=== PATIENT | female | born 1970 | race Caucasian/White ===

== ENCOUNTER 2021-05-19 12:06 | Outpatient (REF) | payer OTHER, SELFPAY ==
--- NOTE | ~2021-05-19 | XR_ITS ---
EXAMINATION: XR CHEST CLINICAL INFORMATION: Pneumonia. COMPARISON: Chest radiograph dated 01/02/2018. TECHNIQUE: 2 views of the chest were obtained. FINDINGS: The lungs are clear. The cardiomediastinal silhouette is normal in size. There is no pleural effusion or pneumothorax. No acute osseous abnormality. Right upper quadrant surgical clips. XR/XR chest 2V IMPRESSION: No acute cardiopulmonary findings.
== END 2021-05-19 12:07 | disposition home or self-care (01) ==
LOC: HO.XRAY 12:06
PROVIDERS: PCP Internal Medicine; Visit Provider Internal Medicine
DX: J18.9 Pneumonia, unspecified organism (principal)
CPT/HCPCS: 71046

== ENCOUNTER 2021-11-18 07:24 | Outpatient (REF) | payer OTHER, SELFPAY ==
--- NOTE | ~2021-11-18 | MM_ITS ---
EXAMINATION: MM SCREENING DIGITAL BREAST TOMOSYNTHESIS, BILATERAL CLINICAL INFORMATION: Screening. Asymptomatic. The lifetime risk of breast cancer based on the Tyrer-Cuzick Model is 9%. COMPARISON: Mammography: 07/29/2015 (baseline) TECHNIQUE: Digital breast tomosynthesis is performed in both the craniocaudal and mediolateral oblique views along with computer-aided detection (CAD). Synthesized 2D images are generated from the tomosynthesis. Additional left CC view is provided. FINDINGS: The breasts are heterogeneously dense, which may obscure small masses (ACR BI-RADS breast composition Category c). There are no significant masses, abnormal calcifications, or other abnormalities. Breast tissue composition borders on average fibroglandular. Parenchymal pattern is similar to prior studies. There are no significant changes. MM/MM tomosynthesis screening BI IMPRESSION: No mammographic evidence of malignancy. ASSESSMENT: BI-RADS 1: Negative RECOMMENDATION: Routine annual mammography screening. This patient's information was entered into a reminder system with a target due date for their next mammogram.
== END 2021-11-18 07:25 | disposition home or self-care (01) ==
LOC: HO.MAMMO 07:24
PROVIDERS: PCP Internal Medicine; Visit Provider Internal Medicine
DX: Z12.31 Encounter for screening mammogram for malignant neoplasm of breast (principal)
CPT/HCPCS: 77063; 77067

== ENCOUNTER 2023-01-19 11:43 | Outpatient (REF) | payer OTHER, SELFPAY ==
[2023-01-19 13:39] LABS: MANUAL DIFF FLAG NO
[2023-01-19 13:49] LABS: Basophils Absolute Auto 0.1 X10*3/uL (0.0-0.2); Basophils Percent Auto 1.2 % (0-2); Eosinophils Absolute Auto 0.1 X10*3/uL (0.0-0.4); Eosinophils Percent Auto 1.8 % (0-4); Hematocrit 40.7 % (37.0-47.0); Hemoglobin 13.7 g/dl (12.0-16.0); Imm Gran Abs Auto 0.02 X10*3/uL (0.00-0.03); Imm Gran Pct Auto 0.4 % (0.0-0.4); Lymphocytes Absolute Auto 1.6 X10*3/uL (1.2-4.9); Lymphocytes Percent Auto 28.1 % (20-40); Mean Corpuscular HGB Conc 33.7 g/dl (31.0-35.0); Mean Corpuscular Hemoglobin 29.7 pg (27.0-33.0); Mean Corpuscular Volume 88.1 fL (80.0-98.0); Mean Platelet Volume 10.6 fL (9.4-12.3); Monocytes Absolute Auto 0.4 X10*3/uL (0.1-1.2); Monocytes Percent Auto 7.1 % (2-11); Neutrophils Absolute Auto 3.5 x10*3/uL (2.0-8.3); Neutrophils Percent Auto 61.4 % (45-73); Platelet Count 280 X10*3/uL (160-400); Red Blood Count 4.62 X10*6/uL (4.20-5.50); Red Cell Distribution Width 12.3 % (11.0-16.0); White Blood Count 5.6 X10*3/uL (4.8-10.8)
[2023-01-19 14:10] LABS: Alanine Aminotransferase 14 U/L (0-31); Albumin Level 4.6 g/dL (3.5-5.0); Alkaline Phosphatase 76 U/L (39-117); Anion Gap 15 (12-20); Aspartate Amino Transferase 15 U/L (5-31); Bilirubin Total 0.6 mg/dL (0.0-1.0); Blood Urea Nitrogen 11 mg/dL (9-16); Calcium 9.6 mg/dL (8.4-10.2); Carbon Dioxide 26 mmol/L (22-29); Chloride 102 mmol/L (96-108); Estimated Glomerular Filt Rate > 60; Glucose Random 84 mg/dL (60-115); Potassium 5.1 mmol/L (3.3-5.1); Sodium 138 mmol/L (135-145); Total Protein 7.1 g/dL (6.5-8.0)
[2023-01-21 15:14] LABS: TS Negative Control Passed; TS Panel A 1; TS Panel B 0; TS Positive Control Passed; TSpotTB Negative (Negative)
== END 2023-01-19 11:44 | disposition home or self-care (01) ==
LOC: HO.10HDL 11:43
PROVIDERS: Visit Provider Physician Assistant Medical
DX: Z11.1 Encounter for screening for respiratory tuberculosis (principal); L40.0 Psoriasis vulgaris
CPT/HCPCS: 36415; 80053; 85025; 86481

== ENCOUNTER 2023-06-28 14:16 | Outpatient (AMB) | payer OTHER, SELFPAY ==
--- NOTE | 2023-06-28 14:18 | MHC.OFFVIS ---
Intake Vital Signs 06/28/23 14:21 Height 5 ft 5 in Weight 211 lb 10.3 oz BMI 35.2 BP 136/78 Blood Pressure Location Lt brachial Position Sitting Pulse 72 Intake Visit Reasons: screening colonoscopy Intake Note: Ree presents in the office as a colonoscopy screening. CC: She states that she is due for a colonoscopy but she is not having a BM regular. Allergies No Known Allergies Allergy (Unverified 06/28/23 14:21) HPI screening colonoscopy HPI Details 53 year old? female with past medical history of hyperlipidemia, insomnia, asthma, psoriasis, PCOS is here today for pre colonoscopy screening.? Patient was sent to us by her PCP.? Last colonoscopy was in December of 2011. Patient had no polyps.? Patient reports constipation. Patient is taking [id number] milk of magnesium tablets. Patient reports that she has been dealing with this for a long time. Occasional blood when wiping after bowel movement. Patient was diagnosed in the past with hemorrhoids.? Denies any personal or family history of gastrointestinal disease or colorectal cancer.? Denies history of difficulty with sedation or anesthesia in the past.? Negative for history of sleep apnea.? Denies any history of cardiac, renal, pulmonary, or hepatic disease.?? No history of infectious? diseases like hepatitis A, B, C, HIV or tuberculosis.? Patient is not on any anticoagulation therapy. [facility] Surgical History (Updated 06/28/23 @ 14:22 by DUSTIN Vaughan) Hx of colonoscopy History of esophagogastroduodenoscopy (EGD) Review of Systems Const Denies weight gain and Denies weight loss ENT Reports no additional complaints, Denies dysphagia and Denies odynophagia Card Reports no additional complaints Resp Reports no additional complaints GI Denies abdominal pain, Denies belching, Denies melena, Denies bloating, Reports hematochezia (After bowel movement when wiping, occasional), Denies change in bowel habits, Reports constipation, Denies dysphagia, Denies excessive flatus, Denies dyspepsia, Denies heartburn, Denies diarrhea, Denies loose stools, Denies nausea, Denies odynophagia and Denies vomiting Reports no additional complaints Musc Reports no additional complaints Neuro Reports no additional complaints Psych Reports no additional complaints Endo Reports no additional complaints Physical Exam Vital Signs: Last Vital Signs Pulse 72 06/28/23 14:21 BP 136/78 06/28/23 14:21 BMI result Body Mass Index 35.2 Const General: healthy appearing, no acute distress and well developed Orientation/consciousness: patient oriented x3 HEENT Head: Yes normal to inspection, Yes normocephalic and Yes atraumatic Face and sinus: Yes normal facial exam Mouth: Normal oral and palatal mucosa present Throat: Yes posterior oropharynx normal, Yes tonsils normal and Yes uvula midline Eyes General: appearance normal, both eyes and all related structures Neck Neck: Yes normal visual inspection, Yes full ROM and Yes trachea midline Thyroid: Thyroid normal Resp Effort & Inspection: normal respiratory effort, able to speak in complete sentences, no tracheal deviation and symmetric chest movement Auscultation: clear to auscultation bilaterally Cardio Rate: regular rate Heart sounds: S1 normal heart sound present and S2 normal heart sound present GI Inspection: Yes normal to inspection, No distended and Yes obesity Palpation (GI): Soft to palpation, not firm, nontender and No hepatosplenomegaly present Auscultation: normal bowel sounds General: Yes no CVA tenderness Back/Spine/Pelvis Back: no CVA tenderness Skin General skin exam: elasticity normal, turgor normal and dry skin Neuro General: patient oriented x3 Psych Appearance: grossly normal Mental Status: mental status grossly normal Assessment & Plan Assessment & Plan (1) Screen for colon cancer: Code(s): Z12.11 - Encounter for screening for malignant neoplasm of colon (2) Chronic idiopathic constipation: Code(s): K59.04 - Chronic idiopathic constipation (3) Hemorrhoid: Code(s): K64.9 - Unspecified hemorrhoids Qualifiers: Hemorrhoid type: unspecified Qualified Code(s): K64.9 - Unspecified hemorrhoids Plan Patient denies any cardiac or respiratory symptoms. Patient reports to be constipated. Will start patient on Linzess. Patient will call the office if her symptoms will continue.? Patient reports occasional blood when wiping after bowel movement. Will send patient script for Proctosol. Denies any issues with anesthesia in the past.? Denies any history of sleep apnea.? No history infectious diseases in the past or present.? Not on any anticoagulation therapy.? No family or personal history of colorectal cancer.? Patient denies melena, hematochezia (except for occasional blood after bowel movement when wiping), unintentional weight loss or ribbon like stools.? Discussed at length the pre-procedure,? prep, diet & medications as well as what to expect prior, during and after the procedure.?? Stressed the importance of good bowel prep. ?Recommended the use of Vaseline or Calmoseptine OTC & baby wipes with bowel movements to promote comfort.? ?Patient verbalizes understanding and agrees to plan of care.? She was given the opportunity to ask questions and all questions answered.? We will see her after the procedure.? Medications: New linaclotide (Linzess) 145 mcg PO DAILY 30 caps 2RF hydrocortisone 2.5% (Proctosol HC) 1 appl RI BID-QID PRN 30 grams 2RF hemorrhoids K64.9 - Unspecified hemorrhoids Coding Level of Care Code New Pt Level 4 (27322) Diagnoses Screen for colon cancer Z12.11 Chronic idiopathic constipation K59.04 Hemorrhoids, unspecified hemorrhoid type K64.9 Hemorrhoid type: unspecified Time Spent (min) 45 Comment 30 minutes spent with patient and additional 15 minutes spent reviewing her records.
[2023-06-28 14:21] VITALS: BP 136/78; PULSE 72; BMI 35.2
== END 2023-06-28 15:19 | disposition home or self-care (01) ==
PROVIDERS: PCP Internal Medicine; Visit Provider Nurse Practitioner Family
DX: Z01.818 Encounter for other preprocedural examination (principal); Z12.11 Encounter for screening for malignant neoplasm of colon; K59.04 Chronic idiopathic constipation; K64.9 Unspecified hemorrhoids
CPT/HCPCS: S0285

== ENCOUNTER → 2023-06-28 14:16 | Outpatient (BNVA) | payer OTHER, SELFPAY | PROVIDERS: PCP Internal Medicine; Visit Provider Nurse Practitioner Family ==

== ENCOUNTER 2024-05-29 09:48 | Day surgery (SDC) | payer OTHER, SELFPAY ==
[2024-05-29 09:58] VITALS: BP 112/82; PULSE 102; RESP 20; TEMP 36.9; O2SAT 96; BMI 35.1
[2024-05-29] MEDS: Lactated Ringers 1,000 ML 100 ML IVCONT (10:27)
--- NOTE | 2024-05-29 11:05 | P.CONAN_ITS ---
Documented by User: Inocencia Beckwith NP 05/25/24 14:49 HPI - Anesthesia Eval Consult details Narrative: 54yo F for Colonoscopy [facility] Past Medical History Medical History (Updated 05/29/24 @ 10:20 by Maria De Jesus Santiago RN) Psoriasis (a type of skin inflammation) Arthritis H/O psoriatic arthritis High cholesterol delivery delivered Asthma Surgical History Surgical History (Updated 05/29/24 @ 10:17 by Maria De Jesus Santiago RN) Hx of adenoidectomy Hx of tonsillectomy Hx laparoscopic cholecystectomy Hx of hysterectomy Hx of colonoscopy History of esophagogastroduodenoscopy (EGD) Social History Social History Patient Tobacco Use Status: Never used Tobacco Have you been hit, kicked, punched, or otherwise hurt by someone within the past year? If so, by whom?: No Are you DNR?: No Advance Directives: No Advance Directives Information Provided: Yes Nutrition Risks: No Nutritional Risk Meds Allergies Allergy/AdvReac Type Severity Reaction Status Date / Time No Known Allergies Allergy Unverified 06/28/23 14:21 Home Medications ?Medication ?Instructions ?Recorded ?Confirmed ?Last Taken ?Type albuterol sulfate 90 mcg/actuation 2 puff inhalation Q6H PRN 06/28/23 Unknown History aerosol inhaler (Ventolin HFA) docusate sodium 100 mg tablet 100 mg PO DAILY 06/28/23 Unknown History lovastatin 20 mg tablet 20 mg PO DAILY 06/28/23 Unknown History montelukast 10 mg tablet 10 mg PO DAILY 06/28/23 Unknown History risankizumab-rzaa 60 mg/mL 600 mg IV Q4W 06/28/23 Unknown History intravenous solution (Skyrizi) fluticasone fur. 100 mcg-umeclid 1 ea inhalation DAILY 05/29/24 05/29/24 05/29/24 History 62.5 mcg-vilant 25 mcg inhalat.powder (Trelegy Ellipta) Assessment and Plan Assessment Anesthesia Assessment: Chart Reviewed Documented by User: Meghann Tsang DO 05/29/24 11:07 [facility] Past Medical History Medical History (Updated 05/29/24 @ 10:20 by Maria De Jesus Santiago RN) Psoriasis (a type of skin inflammation) Arthritis H/O psoriatic arthritis High cholesterol delivery delivered Asthma Family History Family history of problems with anesthesia: No Surgical History Surgical History (Updated 05/29/24 @ 10:17 by Maria De Jesus Santiago RN) Hx of adenoidectomy Hx of tonsillectomy Hx laparoscopic cholecystectomy Hx of hysterectomy Hx of colonoscopy History of esophagogastroduodenoscopy (EGD) History of Problems with Anesthesia: No Social History Social History Patient Tobacco Use Status: Never used Tobacco Have you been hit, kicked, punched, or otherwise hurt by someone within the past year? If so, by whom?: No Are you DNR?: No Advance Directives: No Advance Directives Information Provided: Yes Nutrition Risks: No Nutritional Risk Meds Allergies Allergy/AdvReac Type Severity Reaction Status Date / Time No Known Allergies Allergy Unverified 06/28/23 14:21 Home Medications ?Medication ?Instructions ?Recorded ?Confirmed ?Last Taken ?Type albuterol sulfate 90 mcg/actuation 2 puff inhalation Q6H PRN 06/28/23 Unknown History aerosol inhaler (Ventolin HFA) docusate sodium 100 mg tablet 100 mg PO DAILY 06/28/23 Unknown History lovastatin 20 mg tablet 20 mg PO DAILY 06/28/23 Unknown History montelukast 10 mg tablet 10 mg PO DAILY 06/28/23 Unknown History risankizumab-rzaa 60 mg/mL 600 mg IV Q4W 06/28/23 Unknown History intravenous solution (Skyrizi) fluticasone fur. 100 mcg-umeclid 1 ea inhalation DAILY 05/29/24 05/29/24 05/29/24 History 62.5 mcg-vilant 25 mcg inhalat.powder (Trelegy Ellipta) Exam Exam Date and Time: 05/29/24 1105 Height,Weight and Vital Signs: Height 5 ft 5 in Weight 95.617 kg Vital Signs Temperature 98.5 F 05/29/24 09:58 Pulse Rate 102 H 05/29/24 09:58 Respiratory Rate 20 05/29/24 09:58 Blood Pressure 112/82 05/29/24 09:58 Pulse Oximetry 96 05/29/24 09:58 Oxygen Delivery Method Room Air 05/29/24 09:58 Temperature 98.5 F 05/29/24 09:58 Pulse Rate 102 H 05/29/24 09:58 Respiratory Rate 20 05/29/24 09:58 Blood Pressure 112/82 05/29/24 09:58 Pulse Oximetry 96 05/29/24 09:58 Oxygen Delivery Method Room Air 05/29/24 09:58 Airway Mallampati Class: II TM Dist: <=3cm Neck ROM: Full Loose/Missing/Broken Teeth: No (permanent bridge) Heart: S1S2 Lungs: CTAB Assessment and Plan Assessment Anesthesia Assessment: Anesthesia Plan Discussed and Chart Reviewed Final Anesthetic Review Family History of Problems with Anesthesia: No History of Problems with Anesthesia: No NPO: Yes ASA Class: II Final Preanesthetic Review: No Changes in Pt Med Stat, Meds/Allgs Chart Reviewed, Consent Obtained/Reviewed and Anes Risks/Benef Reviewed Patient Risk: Low Procedure Risk: Low Anesthetic Plan Anesthetic Plan: MAC: and Agree w/ Assess. and Plan Disposition: Standard PACU
--- NOTE | 2024-05-29 11:06 | MHC.SHP ---
Pre-Procedural Eval Section A - 24 Hr Update-Section A only Date of Service: 05/29/24 Section B - Complete if H&P > 30 days Chief Complaint: screening Relevant Family History (Specify if Yes): No Relevant Social History: None Present Medications: see Short Stay Collaborative assessment Medical History: Significant History ( hyperlipidemia, insomnia, asthma, psoriasis, PCOS) History of Previous Operations: Relevant previous surgery/procedure and date(s) (egd,colonoscopy) Allergies: Allergies Allergy/AdvReac Type Severity Reaction Status Date / Time No Known Allergies Allergy Unverified 06/28/23 14:21 Review of Systems Sugical H&P ROS: Negative: Constitution, Cardiovascular, Respiratory, Neurological, Psychiatric, Hem-Onc, Allergic/Immunologic, Gastrointestinal, Genitourinary, Musculoskeletal, Integumentary, Endocrine and Eyes/Ears/Nose/Throat Exam Surgical H&P Exam: Normal: HEENT, Normal: Heart, Normal: Lungs, Normal: Extremities, Normal: Abdomen, Normal: Skin and Normal: Neurological Plan Diagnosis/Plan: Unchanged I have reviewed the history and physical and performed a pertinent physical examination on my patient. No changes have occurred unless specified. Time Spent With Patient Time: Total time managing care of this patient today ____ minutes.
--- NOTE | 2024-05-29 11:43 | HO.OPN-COLON ---
Colonoscopy Operative Note Operative Note Date of Service: 05/29/24 Narrative: Operative Information Procedure Description: Colonoscopy Indication: screening Anesthesia: MAC COLONOSCOPY Instrument: Olympus variable stiffness pediatric scope 190L Colonoscopy Monitoring: Vital signs and clinical assessment, continuous EKG monitoring, Pulse oximetry, Carbon Dioxide monitoring and blood pressure monitoring were done throughout the procedure. Colon withdrawal time was 9 minutes. Procedure: The patient was placed in the left lateral decubitis position and pre-procedure medications were administered. After a digital rectal examination of the ano-rectum, the video colonoscope was inserted into the rectum and advanced through the colon to the cecum/TI. The colonoscope was slowly withdrawn in a retrograde panoramic fashion and the colon mucosa was carefully examined including a retroflexed view of the rectum. Findings and interventions are described below. Procedure Difficulty: easy Findings: Terminal Ileum-normal Cecum:normal right sided retroflexion- normal Ascending Colon: normal Transverse Colon -normal Descending Colon:normal Sigmoid Colon: normal Rectum: Retroflexion with small internal hemorrhoids seen, grade I, 9-10 mm sessile polyp removed with cold snare Anorectum - normal Intervention: cold snare Colon preparation: [place] Bowel Preparation Scale Right colon; 2 Transverse colon: 3 Left colon; 3 (0 = Unprepared colon segment with mucosa not seen due to solid stool that cannot be cleared. 1 = Portion of mucosa of the colon segment seen, but other areas of the colon segment not well seen due to staining, residual stool and/or opaque liquid. 2 = Minor amount of residual staining, small fragments of stool and/or opaque liquid, but mucosa of colon segment seen well. 3 = Entire mucosa of colon segment seen well with no residual staining, small fragments of stool or opaque liquid) Impression and Post Procedure Diagnosis: colon polyp internal hemorrhoids Plan: High fiber diet leaflet Avoid straining at stool, epsom salts and sitz bath, anusol supps or cream Repeat Colonoscopy in 5-7 years if adenoma, 10 yrs if hyperplastic or earlier if clinically indicated Above findings were reviewed with the patient and relevant handouts were provided if indicated.
[2024-05-29 11:44] VITALS: BP 107/74; PULSE 82; RESP 16; TEMP 36.1; O2SAT 98
[2024-05-29 11:49] VITALS: BP 104/68; PULSE 82; RESP 16; O2SAT 99
[2024-05-29 12:02] VITALS: BP 101/65; PULSE 92; RESP 20; TEMP 36.2; O2SAT 99
== END 2024-05-29 12:18 | disposition home or self-care (01) ==
PROVIDERS: PCP Internal Medicine; Visit Provider Internal Medicine Gastroenterology
PROC: 0DJD8ZZ Inspection of Lower Intestinal Tract, Via Natural or Artificial Opening Endoscopic (ICD-10-PCS; CPT 45378; principal; 2024-05-29 12:50)
DX: Z12.11 Encounter for screening for malignant neoplasm of colon (principal); K62.1 Rectal polyp; K64.0 First degree hemorrhoids; K59.04 Chronic idiopathic constipation; E78.5 Hyperlipidemia, unspecified; J45.909 Unspecified asthma, uncomplicated; L40.9 Psoriasis, unspecified; G47.00 Insomnia, unspecified; E28.2 Polycystic ovarian syndrome; Z79.51 Long term (current) use of inhaled steroids; Z79.899 Other long term (current) drug therapy; Z90.49 Acquired absence of other specified parts of digestive tract; Z98.890 Other specified postprocedural states
CPT/HCPCS: 45385; 88305; J2704

== ENCOUNTER → 2024-05-29 09:48 | Outpatient (BNV) | payer OTHER, SELFPAY | PROVIDERS: PCP Internal Medicine; Visit Provider Internal Medicine Gastroenterology | DX: Z12.11 Encounter for screening for malignant neoplasm of colon (principal); D12.8 Benign neoplasm of rectum; K64.8 Other hemorrhoids | CPT/HCPCS: 45385 ==

== ENCOUNTER 2024-06-12 09:42 | Outpatient (AMB) | payer OTHER, SELFPAY ==
[2024-06-12 09:43] VITALS: BP 140/86; PULSE 72; O2SAT 98; BMI 33.5
--- NOTE | 2024-06-12 09:43 | MHC.OFFVIS ---
Vital Signs 06/12/24 09:43 Height 5 ft 5 in Weight 201 lb 0.985 oz BMI 33.5 BP 140/86 H Blood Pressure Location Lt brachial Position Sitting Pulse 72 Pulse Source Pulse Oximeter Pulse Oximetry (%) 98 Oxygen Delivery Method Room Air Intake Visit Reasons: s/p colon Intake Note: Ree presents in office today for a scheduled s/p FUV. CC; Pt reports that they did not experience any post op complications or develop any new concerns or sx. Pt is here to discuss the findings of their procedure. 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 Patient reports to be constipated. Will start patient on Linzess. Patient will call the office if her symptoms will continue.? Patient reports occasional blood when wiping after bowel movement. Will send patient script for Proctosol. Denies any issues with anesthesia in the past.? Denies any history of sleep apnea.? No history infectious diseases in the past or present.? Not on any anticoagulation therapy.? No family or personal history of colorectal cancer.? Patient denies melena, hematochezia (except for occasional blood after bowel movement when wiping), unintentional weight loss or ribbon like stools.? Discussed at length the pre-procedure,? prep, diet & medications as well as what to expect prior, during and after the procedure.?? Stressed the importance of good bowel prep. ?Recommended the use of Vaseline or Calmoseptine OTC & baby wipes with bowel movements to promote comfort.? ?Patient verbalizes understanding and agrees to plan of care.? She was given the opportunity to ask questions and all questions answered.? We will see her after the procedure.? Medications New linaclotide (Linzess) 145 mcg PO DAILY 30 caps 2RF hydrocortisone 2.5% (Proctosol HC) 1 appl DE BID-QID PRN 30 grams 2RF hemorrhoids K64.9 COLONOSCOPY Findings: Terminal Ileum-normal Cecum:normal right sided retroflexion- normal Ascending Colon: normal Transverse Colon -normal Descending Colon:normal Sigmoid Colon: normal Rectum: Retroflexion with small internal hemorrhoids seen, grade I, 9-10 mm sessile polyp removed with cold snare Anorectum - normal Intervention: cold snare Colon preparation: [place] Bowel Preparation Scale Right colon; 2 Transverse colon: 3 Left colon; 3 (0 = Unprepared colon segment with mucosa not seen due to solid stool that cannot be cleared. 1 = Portion of mucosa of the colon segment seen, but other areas of the colon segment not well seen due to staining, residual stool and/or opaque liquid. 2 = Minor amount of residual staining, small fragments of stool and/or opaque liquid, but mucosa of colon segment seen well. 3 = Entire mucosa of colon segment seen well with no residual staining, small fragments of stool or opaque liquid) Impression and Post Procedure Diagnosis: colon polyp internal hemorrhoids Plan: High fiber diet leaflet Avoid straining at stool, epsom salts and sitz bath, anusol supps or cream Repeat Colonoscopy in 5-7 years if adenoma, 10 yrs if hyperplastic or earlier if clinically indicated PATHOLOGY RESULTS Diagnosis Rectum, polypectomy: Hyperplastic mucosal polyp TODAY'S VISIT Patient is here today for follow-up and to discuss colonoscopy results. Patient denies any ill effects from the prep, anesthesia or procedure itself. Patient reports to doing fairly well. She continues to take Linzess on as-needed basis to help her move her bowels. Patient reports that she had complete hysterectomy in 2018. Patient states that the surgery was long 6 hours. Severe endometriosis. Was told that unable to completely remove endometriosis and some was stuck to her colon. This could be contributing to patient's constipation as well. [facility] Medical History (Updated 06/12/24 @ 10:42 by Mery Joshi [facility] Endometriosis of abdomen Psoriasis (a type of skin inflammation) Arthritis H/O psoriatic arthritis High cholesterol delivery delivered Asthma Surgical History Hx of adenoidectomy Hx of tonsillectomy Hx laparoscopic cholecystectomy Hx of hysterectomy Hx of colonoscopy History of esophagogastroduodenoscopy (EGD) Social History Patient Tobacco Use Status: Never used Tobacco Review of Systems Const Denies weight gain and Denies weight loss ENT Reports no additional complaints, Denies dysphagia and Denies odynophagia Card Reports no additional complaints Resp Reports no additional complaints GI Denies abdominal pain, Denies belching, Denies melena, Denies bloating, Denies change in bowel habits, Reports constipation (Better with Linzess), Denies dysphagia, Denies excessive flatus, Denies dyspepsia, Denies heartburn, Denies diarrhea, Denies loose stools, Denies nausea, Denies odynophagia and Denies vomiting Reports no additional complaints Musc Reports no additional complaints Neuro Reports no additional complaints Psych Reports no additional complaints Endo Reports no additional complaints Physical Exam Vital Signs: Last Vital Signs Pulse 72 06/12/24 09:43 BP 140/86 H 06/12/24 09:43 Pulse Ox 98 06/12/24 09:43 Oxygen Delivery Method Room Air 06/12/24 09:43 BMI result Body Mass Index 33.5 Const General: healthy appearing and no acute distress Nutritional Appearance: obese Orientation/consciousness: patient oriented x3 Resp Effort & Inspection: normal respiratory effort, able to speak in complete sentences, no tracheal deviation and symmetric chest movement Auscultation: clear to auscultation bilaterally Cardio Rate: regular rate GI Inspection: Yes normal to inspection, No distended and Yes obesity Palpation (GI): Soft to palpation, not firm, nontender and No hepatosplenomegaly present Auscultation: normal bowel sounds General: Yes no CVA tenderness Back/Spine/Pelvis Back: no CVA tenderness Skin General skin exam: elasticity normal, turgor normal and dry skin Neuro General: patient oriented x3 Psych Appearance: grossly normal Mental Status: mental status grossly normal Assessment & Plan Assessment & Plan (1) Chronic idiopathic constipation: Code(s): K59.04 - Chronic idiopathic constipation (2) Endometriosis of abdomen: Code(s): N80.C0 - Endometriosis of the abdomen, unspecified Category: Medical (3) Status post colonoscopy: Code(s): Z98.890 - Other specified postprocedural states Plan Patient will continue Linzess on as-needed basis. Increase fluid intake and fiber as well as activity to promote better bowel motility. Will send patient for CT scan of abdomen and pelvis with IV and oral contrast to see the extent of endometriosis and see if it is affecting her bowels. Patient does report right lower quadrant pain possible cecum affected or even sigmoid, pain also on the left side of her abdomen occasionally. Colonoscopy in 10 years, sooner if clinically necessary. Patient will follow-up in 8 months, sooner on as needed basis. Patient is agreeable to this plan and verbalizes understanding of instructions. She was given the opportunity to ask questions and all questions answered. Thank you for allowing me to participate in her care Orders: Orders Creatinine Today R10.11 - Right upper quadrant pain CT abdomen pelvis w IV con Today N80.C0 - Endometriosis of the abdomen, unspecified, R10.9 - Unspecified abdominal pain Blood Urea Nitrogen Today R10.11 - Right upper quadrant pain Medications: Refilled linaclotide (Linzess) 145 mcg PO DAILY 30 caps 2RF Coding Level of Care Code Est Pt Level 3 (35008) Diagnoses Chronic idiopathic constipation K59.04 Endometriosis of abdomen N80.C0 Status post colonoscopy Z98.890 Time Spent (min) 30 Comment 20 minutes spent with patient and additional 10 minutes spent reviewing her records
== END 2024-06-12 10:31 | disposition home or self-care (01) ==
PROVIDERS: PCP Internal Medicine; Visit Provider Nurse Practitioner Family
DX: K59.04 Chronic idiopathic constipation (principal); N80.C0 Endometriosis of the abdomen, unspecified; Z98.890 Other specified postprocedural states
CPT/HCPCS: 99213

== ENCOUNTER → 2024-06-12 09:42 | Outpatient (BNVA) | payer OTHER, SELFPAY | PROVIDERS: PCP Internal Medicine; Visit Provider Nurse Practitioner Family ==

== ENCOUNTER 2025-01-23 06:47 | Outpatient (REF) | payer OTHER, SELFPAY ==
[2025-01-23 07:00] LABS: MANUAL DIFF FLAG NO
[2025-01-23 07:24] LABS: Basophils Absolute Auto 0.1 X10*3/uL (0.0-0.2); Basophils Percent Auto 1.6 % (0-2); Eosinophils Absolute Auto 0.2 X10*3/uL (0.0-0.4); Eosinophils Percent Auto 2.6 % (0-4); Hemoglobin 14.1 g/dl (12.0-16.0); Imm Gran Abs Auto 0.03 X10*3/uL (0.00-0.03); Imm Gran Pct Auto 0.4 % (0.0-0.4); Lymphocytes Absolute Auto 2.2 X10*3/uL (1.2-4.9); Lymphocytes Percent Auto 32.2 % (20-40); Mean Corpuscular HGB Conc 34.4 g/dl (31.0-35.0); Mean Corpuscular Hemoglobin 30.2 pg (27.0-33.0); Mean Corpuscular Volume 87.8 fL (80.0-98.0); Mean Platelet Volume 9.9 fL (9.4-12.3); Monocytes Absolute Auto 0.5 X10*3/uL (0.1-1.2); Monocytes Percent Auto 7.7 % (2-11); Neutrophils Absolute Auto 3.8 x10*3/uL (2.0-8.3); Neutrophils Percent Auto 55.5 % (45-73); Platelet Count 317 X10*3/uL (160-400); Red Blood Count 4.67 X10*6/uL (4.20-5.50); Red Cell Distribution Width 12.4 % (11.0-16.0); White Blood Count 6.9 X10*3/uL (4.8-10.8)
[2025-01-23 07:36] LABS: Estimated Average Glucose 111 mg/dL; Hemoglobin A1C 137.1317 umol/L; Hemoglobin A1c % 5.5 % (<6.0); Total Hemoglobin (HGBA1C) 3705.7488 umol/L
[2025-01-23 07:54] LABS: Alanine Aminotransferase 38 U/L (0-31); Albumin Level 4.7 g/dL (3.5-5.0); Alkaline Phosphatase 81 U/L (39-117); Anion Gap 11 (12-20); Aspartate Amino Transferase 27 U/L (5-31); Bilirubin Total 0.6 mg/dL (0.0-1.0); Blood Urea Nitrogen 21 mg/dL (9-16); Calcium 9.5 mg/dL (8.4-10.2); Carbon Dioxide 29 mmol/L (22-29); Chloride 104 mmol/L (96-108); Cholesterol 282 mg/dL (<200); Estimated Glomerular Filt Rate > 60; Glucose Random 116 mg/dL (60-115); HDL Cholesterol 53 mg/dL (>40); LDL Cholesterol Calculated 194 mg/dL (<100); Potassium 4.1 mmol/L (3.3-5.1); Sodium 140 mmol/L (135-145); Total Protein 7.8 g/dL (6.5-8.0); Triglycerides 175 mg/dL (<150)
[2025-01-23 08:00] LABS: Free T4 (Free Thyroxine) 1.01 ng/dL (0.71-1.85); Thyroid Stimulating Hormone 3.48 uIU/mL (0.32-4.0)
== END 2025-01-23 06:48 | disposition home or self-care (01) ==
LOC: HO.LAB 06:47
PROVIDERS: PCP Internal Medicine; Visit Provider Physician Assistant
DX: E78.2 Mixed hyperlipidemia (principal)
CPT/HCPCS: 36415; 80053; 80061; 83036; 84439; 84443; 85025

== ENCOUNTER 2025-07-08 11:14 | Emergency (ER) | payer OTHER, SELFPAY ==
--- NOTE | ~2025-07-08 | XR_ITS ---
EXAMINATION: XR ANKLE, RIGHT CLINICAL INFORMATION: post reduction COMPARISON: X-ray 07/08/2025 TECHNIQUE: 2 views of the right ankle. FINDINGS: Comminuted lateral malleolar fracture, with lateral displacement of the distal bone, improved from previous. Medial malleolus comminuted fracture, with redemonstrated lateral displacement of the distal bone. On the lateral view, there is a fracture plane seen posteriorly, which could be related to the lateral malleolus fracture versus represent a tibial posterior malleolus fracture. Possible fracture involving the lateral tibial plafond. Redemonstrated is disruption of the ankle mortise. Ossific fragments seen anteriorly with represent displaced osseous fragments. No talar fractures identified. Posterior calcaneal spur. Extremity positioned in the orthopedic dressings/ slab Diffuse soft tissue swelling. Ankle joint effusion present. . XR/XR ankle RT min 3V IMPRESSION: Comminuted, displaced medial and lateral malleolar fractures, as detailed above. Fracture plane seen posteriorly on the lateral view, could be related to the overlapping the lateral malleolar fracture, however a posterior malleolus tibial fracture cannot be excluded. Possible fracture involving the lateral tibial plafond. Persistent disruption of the ankle mortise. CT evaluation as clinically indicated Electronically signed by: Clint Leonardo MD 07/08/2025 01:17 PM EDT
--- NOTE | ~2025-07-08 | XR_ITS ---
EXAMINATION: XR KNEE, RIGHT CLINICAL INFORMATION: knee injury after fall COMPARISON: None available. TECHNIQUE: Two views of the right knee. FINDINGS: There is no fracture, dislocation, or suspicious bone lesion. There is normal alignment. There is mild degenerative arthritis in the lateral patellofemoral compartments. The medial compartment appears preserved. There is a moderate sized suprapatellar joint effusion. There is no discrete soft tissue abnormality. XR/XR knee RT 2V IMPRESSION: 1. No acute bony findings. 2. Moderate sized joint effusion. Electronically signed by: Oneal Gross MD 07/08/2025 12:26 PM EDT
--- NOTE | ~2025-07-08 | XR_ITS ---
EXAMINATION: XR ANKLE, RIGHT CLINICAL INFORMATION: ankle fx deformity COMPARISON: None available. TECHNIQUE: AP and lateral of the right ankle. FINDINGS: There is a bimalleolar fracture present. There is comminution of the fractures. There is lateral displacement of the distal fracture fragments by approximately 1.4 cm. Fracture lines appear to involve the lateral tibial plafond. There is disruption of the ankle mortise. The talar dome appears intact. Subtalar joints and calcaneus appear intact. There is diffuse soft tissue swelling. There is an ankle joint effusion present. XR/XR ankle RT 2V IMPRESSION: Comminuted displaced bimalleolar fracture, with disruption of the ankle mortise. Fracture lines appear to involve the lateral tibial plafond. Electronically signed by: Oneal Gross MD 07/08/2025 12:31 PM EDT
--- NOTE | 2025-07-08 11:24 | ED.FALL ---
HPI - Fall General Chief Complaint: Extremity Injury, Lower Stated Complaint: fall, ankle pain Time Seen by Provider: 07/08/25 11:15 Source: patient and EMS Mode of arrival: EMS Limitations: no limitations History of Present Illness ED Provider: HPI Narrative: 55-year-old woman, sustained nonsyncopal fall, she reports tripping and falling, complains of severe pain in the right ankle, noted to be deformed, as well as her right knee, she denies head injury, neck injury, she is not on blood thinners, she tripped over the the baby gate. Related Data Home Medications ?Medication ?Instructions ?Recorded ?Confirmed albuterol sulfate 90 mcg/actuation 2 puff inhalation Q6H PRN 06/28/23 aerosol inhaler (Ventolin HFA) docusate sodium 100 mg tablet 100 mg PO DAILY 06/28/23 lovastatin 20 mg tablet 20 mg PO DAILY 06/28/23 montelukast 10 mg tablet 10 mg PO DAILY 06/28/23 fluticasone fur. 100 mcg-umeclid 1 ea inhalation DAILY 05/29/24 05/29/24 62.5 mcg-vilant 25 mcg inhalat.powder (Trelegy Ellipta) guselkumab 100 mg/mL subcutaneous 100 mg subcut .3 mos 06/12/24 auto-injector (Tremfya) phentermine 30 mg capsule 30 mg PO DAILY 06/12/24 topiramate 25 mg tablet (Topamax) 10 mg PO DAILY 06/12/24 zolpidem 5 mg tablet mg PO 06/12/24 Previous Rx's ?Medication ?Instructions ?Recorded linaclotide 145 mcg capsule 145 mcg PO DAILY #30 caps 03/14/25 (Linzess) acetaminophen 500 mg capsule 1,000 mg (2 x 500 mg) PO Q6H 5 07/08/25 days #20 caps oxycodone 5 mg tablet 5 mg PO Q6H PRN pain #20 tabs 07/08/25 Allergies Allergy/AdvReac Type Severity Reaction Status Date / Time No Known Allergies Allergy Verified 07/08/25 11:35 Review of Systems Constitutional: Constitutional: Reports as per [facility] Past Medical History Medical History (Updated 07/08/25 @ 13:10 by Geraldo Lezama, DO) Endometriosis of abdomen Psoriasis (a type of skin inflammation) Arthritis H/O psoriatic arthritis High cholesterol delivery delivered Asthma Surgical History Hx of adenoidectomy Hx of tonsillectomy Hx laparoscopic cholecystectomy Hx of hysterectomy Hx of colonoscopy History of esophagogastroduodenoscopy (EGD) Social History Social History Patient Tobacco Use Status: Never used Tobacco Advance Directives: No Advance Directives Information Provided: Yes Do you have a plan to hurt others: No Plan Physical Exam Exam: Exam: General: ?Appears of stated age, no facial trauma, no scalp trauma ? ?no facial injury, no perioral bleeding ? Neck: Supple, no LAD ? ?CV: RRR, no obvious murmurs appreciated ? ?Resp: ?No wheezing rales rhonchi no stridor moving air well ? Abd: ?Bowel sounds are present, no tenderness no rebound no rigidity ? ?MSK: Deformity to the right ankle without open wounds, distal pulses posterior tibial and dorsalis pedis are intact, Achilles is intact, no obvious deformity to the knee no effusion, proximal distal compartments are soft ? Skin: Superficial abrasion to the distal 3rd tibia right ankle ? ?Neuro: ?Alert and oriented x3, no obvious facial asymmetry noted, cranial nerves 2-12 intact Vital Signs: Vital Signs: Last Vital Signs Temp 98.2 F 07/08/25 11:33 Pulse 93 07/08/25 11:33 Resp 22 H 07/08/25 11:33 BP 129/72 07/08/25 11:33 Pulse Ox 100 07/08/25 11:33 O2 Del Method Room Air 07/08/25 11:33 BMI result Body Mass Index 31.3 Medications Administered Discontinued Medications Generic Name Dose Route Start Last Admin Trade Name Freq PRN Reason Stop Dose Admin Hydromorphone HCl 0.5 mg 07/08/25 11:24 07/08/25 11:41 Hydromorphone Hcl 0.5 Mg/0.5 Ml Syringe IVPUSH 07/08/25 11:25 0.5 mg ONCE ONE Administration Protocol Sodium Chloride 1,000 mls @ 999 mls/hr 07/08/25 11:30 07/08/25 11:41 Ns IV 07/08/25 12:30 999 mls/hr .Q1H1M JAVIER Administration Ketamine HCl 20 mg 07/08/25 12:30 07/08/25 12:35 Ketamine Hcl/Ns 50 Mg/5 Ml Syringe IVPUSH 07/08/25 12:31 20 mg ONCE ONE Administration Morphine Sulfate 4 mg 07/08/25 11:55 07/08/25 12:00 Morphine Sulfate 4 Mg/Ml Cartridge IVPUSH 07/08/25 11:56 4 mg ONCE ONE Administration Protocol Ondansetron HCl 4 mg 07/08/25 11:24 07/08/25 11:41 Ondansetron Hcl 4 Mg/2 Ml Vial IVPUSH 07/08/25 11:25 4 mg ONCE ONE Administration Oxycodone HCl 10 mg 07/08/25 12:46 07/08/25 13:14 Oxycodone Hcl Immed Release 5 Mg Tablet PO 07/08/25 12:47 10 mg ONCE ONE Administration Oxycodone HCl 10 mg 07/08/25 12:46 07/08/25 13:14 Oxycodone Hcl Er 10 Mg Tab.Er.12h PO 07/08/25 12:47 10 mg ONCE ONE Administration Procedures Orthopedic Fracture Reduction Fracture #1: Time Out Performed: Yes Side: right Fracture Reduction Location: tibia and fibula Technique: direct manipulation Post-reduction neuro exam: intact Post-reduction vascular exam: intact Splint Applied: Yes Patient Tolerated Procedure: well Medical Decision Making Medical Decision Making MDM Narrative: 11:49 AM 07/08/2025 (Dr. Geraldo Lezama): Written consent was obtained for fracture reduction and splinting, with consent mentioning that she may need conscious sedation as well, however my plan right now is to provide pain medications for x-rays and thereafter provide pain dose of ketamine and reduce and splint, and will contact orthopedics thereafter for follow up. 12:49 PM 07/08/2025 (Dr. Geraldo Lezama): Patient given 20 mg of ketamine, AO splint applied, we will check post reduction x-rays and reaching out to orthopedics.( and I did speak with Nadiya) 1:09 PM 07/08/2025 (Dr. Geraldo Lezama): And the postreduction x-rays actually show that this is a trimalleolar ankle fracture not bimalleolar Differential Diagnosis Differential Diagnoses: The differential diagnosis associated with the presentation includes (Ankle fracture, ankle dislocation, knee injury, head injury, neck injury, neurovascular compromise) Admission/Observation Consideration of admission/observation: Escalation of care including admission/observation considered Consult Healthcare Provider Management of the patient was discussed with: Superintendent Service (Orthopedics) Independent Interpretation I performed an independent interpretation of an: Plain X-Ray (No obvious tibial plateau fracture, or patellar fractures, there is joint effusion, ankle x-ray with the bowel malleolar ankle fracture and lateral shift) Radiology Impression Discussion of test interpretation with radiology: I have reviewed the radiologist's reading. Prescription Management I considered prescription management with: Pain Medication Discharge Plan Discharge Clinical Impression: Trimalleolar fracture of right ankle Patient Disposition: Home, Self-Care Instructions: Ankle Fracture (ED) Additional Instructions: Keep the leg elevated quite a bit above heart level when you not walking to get the swelling down, as discussed 1000 mg every 6 hours for the next 2 3 days around the clock, oxycodone 5-10 mg every 4-6 hours, ice down the knee, I spoke to orthopedic surgeons and they will get you into the office next week, there was no wick to operate in this as the swelling needs to come down Worsening issues concerns significant pain despite treatment come back for re-evaluation, keep the splint clean dry in place, do not bear any weight on the ankle while ambulating Prescriptions: New acetaminophen 500 mg capsule 1,000 mg PO Q6H 5 Days Qty: 20 0RF oxycodone 5 mg tablet 5 mg PO Q6H PRN (Reason: pain) Qty: 20 0RF Rx Instructions: Partial Fill upon patient request. No Action Linzess 145 mcg capsule 145 mcg PO DAILY Qty: 30 2RF Trelegy Ellipta 100-62.5-25 mcg blister with device 1 ea INHALATION DAILY lovastatin 20 mg tablet 20 mg PO DAILY albuterol sulfate [Ventolin HFA] 90 mcg/actuation HFA aerosol inhaler 2 puff inhalation Q6H PRN montelukast 10 mg tablet 10 mg PO DAILY docusate sodium 100 mg tablet 100 mg PO DAILY phentermine 30 mg capsule 30 mg PO DAILY zolpidem 5 mg tablet PO topiramate [Topamax] 25 mg tablet 10 mg PO DAILY Tremfya 100 mg/mL auto-injector 100 mg subcut .3 mos Referrals: [facility] [place] [facility] Sur[facility] [Provider Group, Orthopedics] - 1 week Referral Note: Bimalleolar ankle fracture Ankur Massey MD [Primary Care Provider, Internal Medicine] Print Language: Frisian
[2025-07-08 11:25] VITALS: BP 126/86; PULSE 102; O2SAT 99
[2025-07-08 11:33] VITALS: BP 129/72; PULSE 93; RESP 22; TEMP 36.8; O2SAT 100; BMI 31.3
--- NOTE | 2025-07-08 12:26 | PC.NURSE ---
Pt returned from radiology
[2025-07-08] MEDS: Ketamine HCl/NS 50 MG/5 ML SYRINGE 20 MG IVPUSH (12:35)
[2025-07-08] MEDS: oxyCODONE HCl ER 10 MG TAB.ER.12H PO (13:14)
[2025-07-08] MEDS: oxyCODONE HCl Immed Release 5 MG TABLET 10 MG PO (13:14)
[2025-07-08 13:58] VITALS: BP 129/72; PULSE 93; RESP 22; TEMP 36.8; O2SAT 100
== END 2025-07-08 14:09 | disposition home or self-care (01) ==
PROVIDERS: Emergency Provider Emergency Medicine; PCP Internal Medicine
DX: S82.851A Displaced trimalleolar fracture of right lower leg, initial encounter for closed fracture (principal); S90.511A Abrasion, right ankle, initial encounter; M25.571 Pain in right ankle and joints of right foot; M25.561 Pain in right knee; R11.0 Nausea; W01.0XXA Fall on same level from slipping, tripping and stumbling without subsequent striking against object, initial encounter; Y93.89 Activity, other specified; Y92.099 Unspecified place in other non-institutional residence as the place of occurrence of the external cause; Y99.8 Other external cause status; Z79.899 Other long term (current) drug therapy
CPT/HCPCS: 27752; 27818; 73560; 73600; 73610; 96361; 96374; 96375; 99283; 99284; J1171; J2270; J2405

== ENCOUNTER → 2025-07-08 11:46 | Outpatient (BNV) | payer OTHER, SELFPAY | PROVIDERS: Emergency Provider Emergency Medicine; PCP Internal Medicine; Visit Provider Radiology Diagnostic Radiology | DX: S82.851A Displaced trimalleolar fracture of right lower leg, initial encounter for closed fracture (principal); M17.11 Unilateral primary osteoarthritis, right knee | CPT/HCPCS: 73560; 73600; 73610 ==

== ENCOUNTER 2025-07-09 06:35 | Emergency (ER) | payer OTHER, SELFPAY ==
[2025-07-09 06:36] VITALS: BP 122/76; PULSE 98; RESP 16; TEMP 36.6; O2SAT 99; BMI 28.3
--- NOTE | 2025-07-09 06:53 | PC.NURSE ---
foot felt significantly cooler compared to L. foot. patient taken to [facility]. unable to palpate pulse thru valerie wrap. MD Escalera made aware, states ok to remove valerie wrap. upon removing pt verbalizes felt immediate relief. +pulse. cap refill <2seconds.
--- NOTE | 2025-07-09 07:01 | ED_ITS ---
HPI - Extremity Problem General Chief complaint: Extremity Problem Stated complaint: tight bandage, left ankle pain Time Seen by Provider: 07/09/25 06:59 Source: patient, RN notes reviewed and old records reviewed Mode of arrival: ambulatory Limitations: no limitations History of Present Illness ED Provider: Jose Wadsworth PA-C HPI Narrative: 55 yo female seen here yesterday and found to have a trimalleolar fracture who presents back to the ER today for evaluation of worsening foot pain associated with discoloration of her toes that started at 3am. She reports the pain in the foot and toes is new, prior was only in the ankle. She was sleeping with her ankle elevated under pillows when she woke up with the pain. She reports her toes started turning blue this morning, prompting ER re-evaluation. She states she was taking the oxycodone and the tylenol q6 with only some relief. She is calling orthopedics today to arrange an appointment for next week. MD Complaint: extremity pain Onset (ago): hour(s) Pain Consistency: constant Location: right and lower extremity Severity scale (1-10): 9 Quality: sharp Radiation: distal Associated symptoms: denies other symptoms Related Data Home Medications ?Medication ?Instructions ?Recorded ?Confirmed albuterol sulfate 90 mcg/actuation 2 puff inhalation Q 6H PRN 06/28/23 aerosol inhaler (Ventolin HFA) docusate sodium 100 mg tablet 100 mg PO DAILY 06/28/23 lovastatin 20 mg tablet 20 mg PO DAILY 06/28/23 montelukast 10 mg tablet 10 mg PO DAILY 06/28/23 fluticasone fur. 100 mcg-umeclid 1 ea inhalation DAILY 05/29/24 05/29/24 62.5 mcg-vilant 25 mcg inhalat.powder (Trelegy Ellipta) guselkumab 100 mg/mL subcutaneous 100 mg subcut .3 mos 06/12/24 auto-injector (Tremfya) phentermine 30 mg capsule 30 mg PO DAILY 06/12/24 topiramate 25 mg tablet (Topamax) 10 mg PO DAILY 06/12 zolpidem 5 mg tablet mg PO 06/12/24 Previous Rx's ?Medication ?Instructions ?Recorded linaclotide 145 mcg capsule 145 mcg PO DAILY #30 caps 03/14/25 (Linzess) acetaminophen 500 mg capsule 1,000 mg (2 x 500 mg) PO Q6H 5 07/08/25 days #20 caps oxycodone 5 mg tablet 5 mg PO Q6H PRN pain #20 tab s 07/08/25 Allergies Allergy/AdvReac Type Severity Reaction Status Date / Time No Known Allergies Allergy Verified 07/09/25 06:40 Review of Systems Review of Systems: Yes all other systems are reviewed and are negative COUNT INCLUDES THE [facility] Past Medical History Medical History (Updated 07/09/25 @ 07:26 by TJ Hooper) Endometriosis of abdomen Psoriasis (a type of skin inflammation) Arthritis H/O psoriatic arthritis High cholesterol delivery delivered Asthma Surgical History Hx of adenoidectomy Hx of tonsillectomy Hx laparoscopic cholecystectomy Hx of hysterectomy Hx of colonoscopy History of esophagogastroduodenoscopy (EGD) Social History Social History Patient Tobacco Use Status: Never used Tobacco Advance Directives: No Advance Directives Information Provided: No Do you have a plan to hurt others: No Plan Physical Exam Exam: Exam: Appearance: Alert. Oriented X3. No acute distress. HEENT: normal inspection CVS: Normal heart rate and rhythm. Pulses normal. Respiratory: No respiratory distress. Skin: Skin warm and dry. Normal skin color. Normal skin turgor. No rashes. Extremities: right lower leg with partially taken down fiberglass splint, foot is normal in color and temperature. 2+ DP pulse with cap refill <3 seconds. Neuro: Oriented X 3. grossly normal, nonfocal Vital Signs: Vital Signs: Last Vital Signs Temp 98 F 07/09/25 07:55 Pulse 98 07/09/25 07:55 Resp 16 07/09/25 07:55 BP 122/76 07/09/25 07:55 Pulse Ox 99 07/09/25 07:55 O2 Del Method Room Air 07/09/25 07:55 BMI result Body Mass Index 28.3 Medications Administered Discontinued Medications Generic Name Dose Route Start Last Admin Trade Name Freq PRN Reason Stop Dose Admin Acetaminophen 975 mg 07/09/25 07:10 07/09/25 07:27 Acetaminophen 325 Mg Tablet PO 07/09/25 07:11 975 mg ONCE ONE Administration Ketorolac Tromethamine 30 mg 07/09/25 07:10 07/09/25 07:28 Ketorolac Tromethamine 30 Mg/Ml Vial IM 07/09/25 07:11 30 mg ONCE ONE Administration Oxycodone HCl 5 mg 07/09/25 07:10 07/09/25 07:27 Oxycodone Hcl Immed Release 5 Mg Tablet PO 07/09/25 07:11 5 mg ONCE ONE Administration Medical Decision Making Medical Decision Making MDM Narrative: 55 yo female seen here yesterday with a trimalleolar fx, splinted and discharged w/ plan for ortho follow up presents back with acute onset of foot and toe pain w/ discoloration of toes. on arrival to the ER the splint was partially taken down, fiberglass portions left in place and outter Isaias wrap removed. this improved pain and color of toes on evaluation she was NV intact with 2+ DP pulses. pain improved. ankle pain worse that foot pain is resolved. no significant manipulation, movement or new injury to warrant a new XR today patient given oxycodone, tylenol and toradol splint was reapplied wtih looser Isaias wrap. ankle remained stable. pain and discoloration likely due to increased ankle swelling and associated splint being too tight she is feeling better. stable for discharge home with ortho follow up. she will call for an appointment today return precautions discussed Differential Diagnosis Differential Diagnoses: The differential diagnosis associated with the presentation includes neurovascular compromise due to splint, unstable ankle fracture with neurovascular compromise due to injury, Admission/Observation Consideration of admission/observation: Escalation of care including admission/observation considered External Record Review External record reviewed: Prior outpatient radiology Tests considered The following testing was considered but not selected: repeat xr considered Prescription Management I considered prescription management with: Pain Medication Discharge Plan Discharge Clinical Impression: Closed trimalleolar fracture Qualifiers: Encounter type: initial encounter Laterality: right Qualified Code(s): S82.851A - Displaced trimalleolar fracture of right lower leg, initial encounter for closed fracture Acute foot pain Qualifiers: Laterality: right Qualified Code(s): M79.671 - Pain in right foot Patient Disposition: Home, Self-Care Instructions: Ankle Fracture (ED) Additional Instructions: continue to elevate your foot/ankle as much as possible to help bring down swelling continue tylenol 1000 mg every 6 hours you can add ibuprofen 600 mg every 6 hours as well, take with food continue oxycodone every 6 hours, you can take it every 4 hours for severe, break through pain follow up with orthopedics next week If you develop new or worsening symptoms call 911 or come back to the ER for further evaluation. Prescriptions: No Action Linzess 145 mcg capsule 145 mcg PO DAILY Qty: 30 2RF Trelegy Ellipta 100-62.5-25 mcg blister with device 1 ea INHALATION DAILY acetaminophen 500 mg capsule 1,000 mg PO Q6H 5 Days Qty: 20 0RF oxycodone 5 mg tablet 5 mg PO Q6H PRN (Reason: pain) Qty: 20 0RF Rx Instructions: Partial Fill upon patient request. lovastatin 20 mg tablet 20 mg PO DAILY albuterol sulfate [Ventolin HFA] 90 mcg/actuation HFA aerosol inhaler 2 puff inhalation Q6H PRN montelukast 10 mg tablet 10 mg PO DAILY docusate sodium 100 mg tablet 100 mg PO DAILY phentermine 30 mg capsule 30 mg PO DAILY zolpidem 5 mg tablet PO topiramate [Topamax] 25 mg tablet 10 mg PO DAILY Tremfya 100 mg/mL auto-injector 100 mg subcut .3 mos Referrals: [facility] [place] Orthopedic Surgeons [Provider Group] Referral Note: trimalleolar fx Clinical Impression: Closed trimalleolar fracture Ankur Massey MD [Primary Care Provider, Internal Medicine] Interventions: ED Discharge Assessment Last Done: 07/09/25 07:55 Discharge Date/Time: 07/09/25 07:57 Print Language: Welsh
--- OUTSIDE RECORDS SUMMARY | 2025-07-09 07:04 | XMS_ITS | Patient Health Record ---
Author Organization [facility] Address [address] [place] [address] Care Team Providers Care Recruitment Officer Name Role Phone Tita (RETIRED) Geo BOLDEN Primary Care Provide r Michael Lafleur Jr Unavailable Reason For Referral No Information Medications Medication SIG (Take, Route, Fr equency, Duration) Notes Start Date End Date Status Milk of Magnesia 09/19/2024 09/19/2024 A ctive Bentyl 20 MG 1 tablet Orally Two to Four times a day; Duration: 30 day(s) 12/10/2011 09/19/2024 Activ e Colace 09/19/2024 09/19/2024 Active Ventolin HFA Active MoviPrep 100 GM as directed before c olonoscopy Orally; Duration: 1 dose 12/10/2011 09/19/2024 Active Social History Tobacco Use: Social History Observation Description Date Details (start date - stop date) Never Smoker NA - NA Tobacco Use/Smoking Question Answer Notes Patient is a nonsmoker Alcohol Screen Question Answer Notes Did you have a drink contain ing alcohol in the past year? Yes Points 2 Interpretation Negative How often did you have a dri nk containing alcohol in the past year? 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 Alcohol use is described as occasional. Problems Problem Type SNOMED Code ICD Code Onset Dates Problem Status W/U Status Risk Notes Problem Hemorrhage of rectum and anus (532391796) Hemorrhage of rectum and anus (569.3) Active confirmed Problem Left lower quadrant pain (307810146) Abdominal pain, left lower quadrant (789.04) Active confirmed Plan Of Treatment Future Test Test Name Order Date COLONOSCOPY 12/10/2011 Insurance Providers Payer Name Payer Address Payer Phone Subscriber Number Group Number Insured Name Patient Relationship to Insured Coverage Start Date Coverage End Date [employer] ([employer]EDS [employer] L) [address] [place] [id number] UMESH ALEXANDRE Self - patient is the insured Medical (General) History Medical History History ICD Code asthma psoriasis Surgical History Surgery Date(Month/Year) cholecystectomy tonsillectomy section x2
--- OUTSIDE RECORDS SUMMARY | 2025-07-09 07:05 | XMS_ITS | Data Portability ---
Author Organization [facility], Telehealth Patient Home Address [address] [place] [address] Assessment No assessment recorded. Plan of Treatment Reminders Order Date Submit Date Provider Last Modified By Organization Details Last Modified Time Details Appointments FOLLOW UP 15 2024 10:30A M TJ GALINDO Not available Not available Not available Lab None recorded. Referral None recorded. Procedures None recorded. Surgeries None recorded. Imaging None recorded. Medication Orders buspirone 10 mg tablet 2024 DARIANA [facility], [address] [place], [address], 07/02/2025 14:37:55 dextroamp hetamine- amphetami ne 10 mg tablet 2024 025 BOYKINS [facility], [address] [place], [address], 07/02/2025 14:35:18 Zepbound 12.5 mg/0.5 mL subcutane ous pen injector 2024 BOYKINS [facility], [address] [place], [address], 07/02/2025 14:27:09 ondansetr on HCl 8 mg tablet 2024 025 BOYKINS [facility], [address] [place], [address], 07/02/2025 14:28:07 Zepbound 12.5 mg/0.5 mL subcutane ous pen injector 2024 025 BOYKINS [facility], [address] [place], [address], 06/04/2025 15:01:03 zolpidem 5 mg tablet 2024 025 BOYKINS [facility] [address] [place], [address], 04/26/2025 14:47:51 buspirone 10 mg tablet 2024 025 BOYKINS [facility], [address] [place], [address], 04/26/2025 14:55:29 Zepbound 10 mg/0.5 mL subcutane ous pen injector 2024 025 BOYKINS [facility] [address] [place], [address], 06/04/2025 15:00:32 ondansetr on HCl 8 mg tablet 2024 025 [facility] [address] [place], [address], 07/02/2025 14:27:49 Zepbound 7.5 mg/0.5 mL subcutane ous pen injector 2024 025 BOYKINS [facility] [address] [place], [address], 06/04/2025 14:36:04 Zepbound 5 mg/0.5 mL subcutane ous pen injector 2024 025 BOYKINS [facility] [address] [place], [address], 04/26/2025 14:44:40 Patient TargetsNo targets recorded. Patient InstructionsNo instructions recorded. Reason for Referral None Reported. Results Created Date Observation Date Name Description Value Unit Range Abnormal Flag Note LastModifiedBy Organization Detail LastModifiedTime 07/08/2007/08/2025 XR, knee No observ ation record ed. [email or web address] [facility] (Medical Records) [address] [place], [address], 07/08/2025 13:28:46 07/08/20 25 07/08/2025 XR, ankle No observ ation record ed. [email or web address] [facility] (Medical Records) [address] [place], [address], 07/08/2025 13:28:57 07/08/2007/08/2025 XR, ankle No observ ation record ed. [email or web address] [facility] (Medical Records) [address] [place], [address], 07/08/2025 13:29:09 Result Notes None recorded. Problems Name Problem SNOMED Code Status Onset Date Resolution Date Notes Provider Name and Address Organization Details Recorded Time Asthma 525842748 Active 2017 Vannesa valdivia [facility] 8 14:21:55 History of depressio n 395689033 Active 2017 Vannesa valdivia [facility] 8 14:22:01 Acid reflux 636076526 Active 2017 Vannesa valdivia [facility] 8 14:22:15 Psoriasis 8916158 Active 2017 Juana Quinonez NP, [address] [place], [address], [facility] 8 11:45:40 Thyroid nodule 327015144 Active 2017 Junaa Quinonez NP, [address] [place] [address], [address], [place] [facility] 8 11:45:50 Pain of left hip joint 254577323281 100 Active 2021 TJ GALINDO [address] [place] [address], [address], [facility] 2 10:39:06 Candidias is of skin 69578016 Active 2021 TJ GALINDO [address] [place] [address], [address], [facility] 2 10:40:16 Polycysti c ovary syndrome 561105822 Active 2022 TJ GALINDO [address] [place] [address], [address], [facility] 3 12:10:08 Hyperlipi demia 28845007 Active 2022 TJ GALINDO [address] [place] [address], [address], [facility] 3 12:10:23 Insomnia 717246785 Active 2022 TJ GALINDO [address] [place] [address], [address], [facility] 3 12:17:53 Chronic back pain 359179230 Active 2022 TJ GALINDO [address] [place] [address], [address], [facility] 3 12:20:10 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 492536598 Active 2022 TJ GALINDO [address] [place] [address], [address], [facility] 3 14:05:44 Depressiv e disorder 90031242 Active 2023 TJ GALINDO [address] [place] [address], [address], [facility] 4 14:09:02 Thoracic back pain 198542254 Active 2023 TJ GALINDO [address] [place] [address], [address], [facility] 4 14:11:40 Irritable bowel syndrome 35821885 Active 2023 TJ GALINDO [address] [place], [address], [facility] 4 10:13:52 Exacerbat ion of mild persisten t asthma 536291010 Active 2023 TJ GALINDO [address] [place] [address], [address], [facility] 4 10:43:51 Nausea 251410503 Active 2024 Ankur Massey, DO [address] [place] [address], [address], [facility] 5 22:59:03 Slow transit constipat ion 52293832 Active 2024 TJ GALINDO [address] [place] [address], [address], [facility] 5 11:28:06 Uncomplic ated severe persisten t asthma 757503045 Active 2024 TJ GALINDO [address] [place] [address], [address], [facility] 5 11:28:29 Mild depressio n 520664339 Active 2024 TJ GALINDO [address] [place] [address], [address], [facility] 5 14:52:09 Body mass index 30+ - obesity 763325812 Active 2024 TJ GALINDO [address] [place] [address], [address], [facility] 5 14:41:22 Adult attention deficit hyperacti vity disorder 588043954 Active 2024 TJ GALINDO [address] [place] [address], [address], [facility] 5 14:53:06 Aversion to food or drink 201039197 Active 2024 TJ GALINDO [address] [place], [address], [facility] 5 15:01:49 Problem Notes None recorded. Procedures Surgical History Date Name Laterality Status Provider Name and Address Organization Details Recorded Time 995 Cholecystectomy completed Juana Quinonez NP, [address] [place], [address], [facility] 12/29/2017 11:47:57 985 Remove tonsils and adenoids completed Juana Quinonez NP, [address] [place], [address], [facility] 12/29/2017 11:47:40 Imaging Results None recorded. Procedure Notes None recorded. Medical Equipment None Reported. Allergies Allergen ID Allergen Name Allergen Category Reaction Reaction Severity Criticality Documentation Date Start Date Code Code System Note Provider Name and Address Organization Details Recorded Time 8530 Product containin g 3-hydroxy -3-methyl glutaryl- coenzyme A reductase inhibitor (product) medicatio n Not available Not available Not available 08/06/2024 10690 009 SNOMED TJ GALINDO [address] [place], [address], [facility] 4 10:49:35 Medications Name Sig Start Date Stop Date Status Note LastModified by Organization Details LastModified Time Prescriptio n - Prior Authorizati on Request 03/30 completed Not Available Not Available Not Available venlafaxine ER 37.5 mg capsule,ext ended release 24 hr TAKE ONE CAPSULE BY MOUTH EVERY DAY 06/01 completed Not Available Not Available Not Available prednisone 10 mg tablet TAPER TABLETS EVERY 2 DAYS AND TAKE IN THE MORNING AFTER BREAKFAST 6,6,5,5,4 ,4,3,3,2, 2,1,1 07/12 completed Not Available Not Available Not Available trazodone 50 mg tablet TAKE ONE TABLET BY MOUTH EVERY DAY AT BEDTIME 06/17 completed Not Available Not Available Not Available azithromyci n 250 mg tablet TAKE 2 TABLETS ON FIRST DAY , THEN 1 TABLET DAILY FOR 4 DAYS 07/13 completed Not Available Not Available Not Available ondansetron HCl 8 mg tablet TAKE ONE TABLET BY MOUTH TWICE A DAY NEEDED 07/02 completed Not Available Not Available Not Available prednisone 20 mg tablet TAKE 2 TABLETS DAILY FOR 3 DAYS THEN TAKE 1 TABLET DAILY FOR 3 DAYS. 03/27 completed Not Available Not Available Not Available dextroamphe tamine-amph etamine 10 mg tablet Take 1 tablet every day by oral route for 14 days. 2024 active Not Available Not Available Not Avai lable niacin ER 500 mg tablet,exte nded release 24 hr TAKE ONE TABLET BY MOUTH EVERY DAY 03/27 completed Not Available Not Available Not Available phentermine 15 mg capsule TAKE ONE CAPSULE BY MOUTH EVERY DAY 03/30 completed Not Available Not Available Not Available topiramate 25 mg tablet TAKE ONE TABLET BY MOUTH EVERY DAY 01/23 completed Not Available Not Available Not Available lovastatin 10 mg tablet TAKE ONE TABLET BY MOUTH EVERY DAY 02/19 completed Not Available Not Available Not Available phentermine 30 mg capsule TAKE ONE CAPSULE BY MOUTH EVERY DAY 03/27 completed Not Available Not Available Not Available amoxicillin 875 mg tablet TAKE ONE TABLET BY MOUTH IN THE MORNING AND ONE TABLET IN THE EVENING FOR 7 DAYS 07/12 completed Not Available Not Available Not Available prednisolon e acetate 1 % eye drops,suspe nsion INSTILL ONE DROP INTO BOTH EYES THREE TIMES A DAY FOR 2 WEEKS THEN TWICE DAILY FOR 2 WEEKS 07/12 completed Not Available Not Available Not Available pravastatin 10 mg tablet TAKE ONE TABLET BY MOUTH EVERY DAY 07/12 completed Not Available Not Available Not Available trazodone 100 mg tablet TAKE ONE TABLET BY MOUTH EVERY DAY 05/21 completed Not Available Not Available Not Available benzonatate 100 mg capsule TAKE ONE CAPSULE BY MOUTH THREE TIMES A DAY NEEDED FOR 7 DAYS 07/13 completed Not Available Not Available Not Available gemfibrozil 600 mg tablet TAKE ONE TABLET BY MOUTH TWICE A DAY 08/06 completed Not Available Not Available Not Available erythromyci n 5 mg/gram (0.5 %) eye ointment APPLY 1 CM RIBBON INTO THE LOWER CONJUNCTI POPEYE SAC(S) IN THE AFFECTED EYE(S) BY OPHTHALMI C ROUTE 4 TIMES PER DAY for 5 days 12/02 completed Not Available Not Available Not Available ferrous sulfate 325 mg (65 mg iron) tablet Take 1 tablet every day by oral route. 07/12 completed Not Available Not Available Not Available neomycin-po lymyxin-dex ameth 3.5 mg/mL-10,00 0 unit/mL-0.1 % eye drops 04/02 completed Not Available Not Available Not Available Cipro 500 mg tablet Take 1 tablet every 12 hours by oral route for 14 days. 02/20 completed Not Available Not Available Not Available buspirone 10 mg tablet Take 1 tablet twice a day by oral route as directed for 30 days. 2024 active Not Available Not Available Not Avai lable clotrimazol e-betametha sone 1 %-0.05 % topical cream APPLY TO THE AFFECTED AND SURROUNDI NG AREAS OF SKIN BY TOPICAL ROUTE TWO TIMES A DAY IN THE MORNING AND EVENING FOR 2 WEEKS. 06/01 completed Not Available Not Available Not Available Advair Diskus 250 mcg-50 mcg/dose powder for inhalation Inhale 1 puff twice a day by inhalatio n route. 12/30 completed Not Available Not Available Not Available nystatin-tr iamcinolone 100,000 unit/g-0.1 % topical cream APPLY IN THE MORNING AND IN THE EVENING UNDER THE BREASTS AND ABDOMINAL FOLD FOR 7 DAYS WHEN FLARING 07/02 completed Not Available Not Available Not Available gabapentin 300 mg capsule 09/22 completed Not Available Not Available Not Available diclofenac sodium 75 mg tablet,ayan yed release Take 1 tablet twice a day by oral route. 12/02 completed Not Available Not Available Not Available montelukast 10 mg tablet TAKE ONE TABLET BY MOUTH EVERY DAY 03/27 completed Not Available Not Available Not Available bisacodyl 5 mg tablet,ayan yed release TAKE TWO TABLET 2 X 5 MG) BY MOUTH ONCE FOR 1 DAY; TAKE 2 TABLETS AT NOON THE DAY BEFORE YOUR COLONOSCO PY. 02/19 completed Not Available Not Available Not Available zolpidem 5 mg tablet 1-2 po prn at hs 2024 active Not Available Not Available Not Avai lable estradiol 0.5 mg tablet 09/22 completed Not Available Not Available Not Available Cheratussin AC 10 mg-100 mg/5 mL oral liquid Take 10 mL every 4 hours by oral route. 02/20 completed Not Available Not Available Not Available ibuprofen 600 mg tablet 09/22 completed Not Available Not Available Not Available levofloxaci n 500 mg tablet TAKE ONE TABLET BY MOUTH EVERY 24 HOURS FOR 10 DAYS 07/13 completed Not Available Not Available Not Available zolpidem 10 mg tablet TAKE ONE TABLET BY MOUTH DAILY AT BEDTIME PLEASE SCHEDULE APPOINTME NT) 03/30 completed Not Available Not Available Not Available methylpredn isolone 4 mg tablets in a dose pack 24 mg PO on day 1, then decr. by 4 mg/day x5 days per dose pack instructi ons 01/15 completed Not Available Not Available Not Available albuterol sulfate HFA 90 mcg/actuati on aerosol inhaler INHALE TWO PUFFS BY MOUTH EVERY 4 TO 6 HOURS NEEDED active Not Available Not Available No t Available sertraline 50 mg tablet TAKE ONE TABLET BY MOUTH ONCE DAILY 07/28 completed Not Available Not Available Not Available phentermine 37.5 mg capsule TAKE 1 CAPSULE BY MOUTH EVERY DAY. 11/20 completed Not Available Not Available Not Available amoxicillin 875 mg-potassiu m clavulanate 125 mg tablet Take 1 tablet every 12 hours by oral route for 10 days. 04/23 completed Not Available Not Available Not Available oxycodone 5 mg tablet 09/22 completed Not Available Not Available Not Available bupropion HCl XL 300 mg 24 hr tablet, extended release TAKE ONE TABLET BY MOUTH EVERY DAY 05/21 completed Not Available Not Available Not Available bupropion HCl XL 150 mg 24 hr tablet, extended release TAKE ONE TABLET BY MOUTH EVERY DAY 05/27 completed Not Available Not Available Not Available topiramate 50 mg tablet TAKE ONE TABLET BY MOUTH EVERY DAY 03/27 completed Not Available Not Available Not Available Milk of Magnesia qd 03/27 completed Not Available Not Available Not Available calcium daily 02/19 completed Not Available Not Available Not Available Colace daily 03/27 completed Not Available Not Available Not Available Vitamin D daily 03/27 completed Not Available Not Available Not Available ProAir HFA 2 puffs TID prn 07/12 completed Not Available Not Available Not Available diclofenac 1 % topical gel APPLY 2 GRAMS TO AFFECTED AREA S) BY TOPICAL ROUTE FOUR TIMES A DAY. 03/27 completed Not Available Not Available Not Available venlafaxine ER 37.5 mg tablet,exte nded release 24 hr Take 1 tablet every day by oral route for 30 days. 02/19 completed Not Available Not Available Not Available ClearLax 17 gram/dose oral powder TAKE 238 GRAM ORALLY ONCE; DIRECTED BY [facility]PART[facility] T AT [facility]. 02/19 completed Not Available Not Available Not Available Linzess 145 mcg capsule TAKE 1 CAPSULE BY MOUTH DAILY. active Not Available Not Available No t Available secukinumab 300ml every 28 days 07/12 completed Not Available Not Available Not Available Procto-Med HC 2.5 % topical cream perineal applicator APPLY ONE APPLICATI ON RECTALLY TWICE A DAY TO FOUR TIMES A DAY NEEDED FOR HEMMORRHO IDS 06/01 completed Not Available Not Available Not Available Trelegy Ellipta 100 mcg-62.5 mcg-25 mcg powder for inhalation INHALE ONE PUFF BY MOUTH EVERY DAY active Not Available Not Available No t Available Ozempic 0.25 mg or 0.5 mg (2 mg/1.5 mL) subcutaneou s pen injector 06/03 completed Not Available Not Available Not Available Wixela Inhub 500 mcg-50 mcg/dose powder for inhalation INHALE ONE PUFF BY MOUTH TWICE A DAY 02/19 completed Not Available Not Available Not Available Tremfya 100 mg/mL subcutaneou s auto-inject or Inject 1 mL by subcutane ous route. 03/27 completed Not Available Not Available Not Available Skyrizi 150 mg/mL subcutaneou s pen injector 03/27 completed Not Available Not Available Not Available Mounjaro 2.5 mg/0.5 mL subcutaneou s pen injector inject 2.5mg weekly 02/19 completed Not Available Not Available Not Available Zepbound 10 mg/0.5 mL subcutaneou s pen injector INJECT 0.5 ML EVERY WEEK BY SUBCUTANE OUS ROUTE 06/04 completed Not Available Not Available Not Available Zepbound 5 mg/0.5 mL subcutaneou s pen injector INJECT 5MG SUBCUTANE OUSLY EVERY WEEK 04/26 completed Not Available Not Available Not Available Zepbound 2.5 mg/0.5 mL subcutaneou s pen injector INJECT 2.5 MG INTO THE SKIN WEEKLY 03/27 completed Not Available Not Available Not Available Zepbound 12.5 mg/0.5 mL subcutaneou s pen injector Inject 12.5 mg every week by subcutane ous route for 30 days. 2024 active Not Available Not Available Not Avai lable Zepbound 7.5 mg/0.5 mL subcutaneou s pen injector INJECT 7.5 MG EVERY WEEK BY SUBCUTANE OUS ROUTE DIRECTED 06/04 completed Not Available Not Available Not Available Vitals Date Recorded Body height Body mass index (BMI) Body weight Heart rate Oxygen saturation Oxygen saturation in Arterial blood by Pulse oximetry Systolic And Diastolic Provider Name and Address Organization Details Last Updated DateTime 5 165.74 cm 33.7 kg/m2 56914.8 4 g 80 /min 96 % 96 % 130/86 mm[Hg] Jolene Ang [facility] 5 11:15:10 Date Recorded Body height Body mass index (BMI) Body weight Heart rate Oxygen saturation Oxygen saturation in Arterial blood by Pulse oximetry Systolic And Diastolic Provider Name and Address Organization Details Last Updated DateTime 5 165.74 cm 32.4 kg/m2 32099.9 g 64 /min 97 % 97 % 144/92 mm[Hg] Jolene Ang [facility] 5 10:54:06 Date Recorded Body height Body mass index (BMI) Body weight Heart rate Oxygen saturation Oxygen saturation in Arterial blood by Pulse oximetry Systolic And Diastolic Provider Name and Address Organization Details Last Updated DateTime 5 165.74 cm 32 kg/m2 28016.9 2 g 64 /min 98 % 98 % 128/86 mm[Hg] Jolene Agn [facility] 5 14:18:16 Date Recorded Body height Body mass index (BMI) Body weight Heart rate Oxygen saturation Oxygen saturation in Arterial blood by Pulse oximetry Systolic And Diastolic Provider Name and Address Organization Details Last Updated DateTime 5 165.74 cm 31 kg/m2 29431.3 7 g 80 /min 98 % 98 % 128/80 mm[Hg] Stephanie Ashutosh [facility] 5 14:32:05 Date Recorded Body height Body mass index (BMI) Body weight Heart rate Oxygen saturation Oxygen saturation in Arterial blood by Pulse oximetry Systolic And Diastolic Provider Name and Address Organization Details Last Updated DateTime 5 165.74 cm 30.1 kg/m2 74378.8 1 g 79 /min 97 % 97 % 128/80 mm[Hg] Stephanie Ashutosh [facility] 5 14:11:28 Social History Question Answer Notes LastModified by Organizindeni ion Details LastModified Time Tobacco Smoking Status Never Smoker Not Available [facility] 03:36:24 What Was The Date Of Your Most Recent Tobacco Screening? 07/02/2025 [email or web address] Information not available 07/02/2025 Sex: Unknown Functional Status Question Answer Note LastModified by Organization D etails LastModified Time Do you or have you ever used any other forms of tobacco or nicotine? No [email or web address] Information not available 05/27/2023 Mental Status None recorded. Family History Relationship Description Onset Age of this Age Resolved Age Notes LastModified by Organization Details LastModified Time Father Hypercholest erolemia [email or web address] Not available 2017 11:49:18 Mother Obesity [email or web address] Not available 12/29/2017 11:49:29 Mother Migraine [email or web address] Not available 12/29/2017 11:49:40 Medical History No medical history recorded. Gynecological HistoryNo gynecological history recorded. Obstetrics History GPAL:G 0 P 0 0 0 0 Immunizations Vaccine Type Date Status Note Provider Nam e and Address Organization Details Recorded Time COVID-19, mRNA, LNP-S, PF, 30 mcg/0.3 mL dose 1 completed [facility] 07/10/2021 15:54:36 COVID-19, mRNA, LNP-S, PF, 30 mcg/0.3 mL dose 1 completed [facility] 07/10/2021 15:54:42 COVID-19, mRNA, LNP-S, PF, 30 mcg/0.3 mL dose 1 completed Gloria valdivia [facility] 07/12/2022 08:11:18 Influenza, split virus, quadrivalent, preservative 0 completed Gloria valdivia [facility] 07/12/2022 08:11:31 Influenza, split virus, quadrivalent, preservative 1 completed Gloria valdivia [facility] 07/12/2022 08:11:38 Past Encounters Encounter ID Performer Location Encounter Start Date Encounter Closed Date Diagnosis/Indication Diagnosis SNOMED-CT Code Diagnosis ICD10 Code Diagnosis IMO Codes Diagnosis Note [id number] Ankur Massey [facility] [address] [facility],[place] [address] 12/30/2017 10:20:38 12/30/2017 12:29:00 Dyspnea on exertion 40173200 R06.09 Iron defic iency anemia 49999997 D50.9 provided with list of foods high in iron, explained importance Left lower quadrant pain 033200112 R10.32 Asthma 722824679 J45.90 9 follow, continue with inhalers Fatigue 88321490 R53.83 ? r/t fe deficiency anemia, follow Gastroesop hageal reflux disease 836895878 K21.9 negative UGI, [id number] Ankur Massey [facility] [address] [facility],[place] [address] 01/09/2018 09:28:30 01/09/2018 10:22:38 Acute pelvic pain 049764033 R10.2 abnormal u/s awaiting map mounter consult Iron defic iency anemia 64600987 D50.9 reiterated importance Dyspnea on exertion 6084 5006 R06.09 neg. CXR, ? r/t anemia, follow Gastroesop hageal reflux disease 755381791 K21.9 negative UGI, but symptomati c Asthma 598538665 J45.90 9 follow, continue with inhalers Depressive disorder 9858 9007 F32.89 continue sertraline [id number] Ankur Massey [facility] [address] [place] [address] 02/07/2018 11:24:21 02/07/2018 12:27:12 Asthmatic bronchitis 720868809 J45.909 Moderate p ersistent asthma 818087624 J45.40 call if no better Iron defic iency anemia 99025298 D50.9 follow after map mounter /lupron, had colonoscop y 5 years ago Dyspnea on exertion 6084 5006 R06.09 mildly improved, follow [id number] Ankur Massey [facility] [address] [facility], [place] [address] 02/20/2018 10:55:17 02/20/2018 17:25:32 Acute bronchitis 12595784 J20.9 resolved, will fax letter to surgeon, unable to locate in system [id number] Ankur Massey [facility] [address] [facility], [employer] [place] [address] 09/22/2018 13:24:58 09/22/2018 13:56:08 Asthma 594726139 J45.909 on advair on proair History of depression 16 4597242 Z86.59 on sertraline Acid reflux 443163837 K2 1.9 quiet without meds Acute sinusitis 10934965 J01.90 favor bacterial infection [id number] Ankur Massey [facility] [address], [address] [place] [address] 01/15/2019 13:50:42 01/15/2019 16:24:14 Psoriasis 5254862 L40.9 Pain of left hand 379582 6351 91542 M79.642 Pain of right hand 46158 33206 62196 M79.641 Asthma 654393681 J45.90 9 stable, continue with inhalers Acid reflux 701265935 K2 1.9 controlled [id number] Ankur Massey [facility] [address] [place] [address] 12/03/2019 14:24:44 12/03/2019 15:04:40 Asthma 519648645 J45.909 stable Chronic uveitis 28926975 2 H20.12 pt has had painful, itchy, injected left eye intermitte ntly since May. has a hx of psoriasis which is being treated son has a hx of uveitis [id number] Ankur Massey [facility] Internal Medicine [address] [facility],[place] [address] 04/02/2020 11:01:48 04/02/2020 11:47:29 Asthma 326401233 J45.909 stable Chronic sinusitis 702132 00 J32.9 recommende d OTC flonase as well to help open up nasal passages and sinus and reduce inflammati on along with a longer course of abx most likely started as allergies and developed into sinus infection [id number] Ankur Massey [facility] Internal Medicine [address] [facility],[place] [address] 04/23/2020 14:23:31 04/23/2020 15:05:08 Chronic sinusitis 82511343 J32.[address] sinuses to see if there is any issue there Dyspnea 400605207 R06.00 will do an XR to r/o possible pulmonary involvemen t Chronic uveitis 39410742 2 H20.12 will work her up for any underlying conditions that may be contributi ng to her on going problems Fatigue 72936843 R53.83 could be just to the illness as she has been sick for almost a month now [id number] Ankur Massey [facility] Internal Medicine [address] [facility],[address] [employer] [place] [address] 07/13/2021 09:36:22 07/13/2021 10:29:03 Screening colonoscopy 323837246 Z12.11 will submit referral Insomnia 205334514 G47.0 9 will trial trazodone Asthma 786733518 J45.20 stable History of depression 16 3639852 Z86.59 switch medication given taper instructio ns Hyperlipidemia 56819498 E78.2 will trial low dose of pravastati n Anxiety 53576744 F41.1 will trial bupropion 38155 Ankur Massey [facility] Internal Medicine [address],[place] [address] 07/12/2022 10:25:43 07/12/2022 13:31:01 Asthma 367286814 J45.20 worseningw ill switch to ventolin since pro air is off market Pain of le ft hip joint 6487278390 14126 M25.552 will trial a topicalwil l let me know if she would like to proceed with the MRI Candidiasis of skin 4988 3006 B37.2 will f/u with topical for flare ups 65830 [facility] [address] [facility],[place] [address] 05/27/2023 11:39:06 05/27/2023 14:40:06 Asthma 321985308 J45.50 worseningw ill switch to ventolin since pro air is off market History of depression 16 9939713 Z86.59 switch medication given taper instructio ns Pain of le ft hip joint 7132935364 83775 M25.552 will trial a topicalwil l let me know if she would like to proceed with the MRI Hyperlipidemia 69081446 E78.[address] up with CT scan calcium score Screening colonoscopy 44 5252129 Z12.11 will submit referral again Insomnia 232829797 G47.0 9 no effect with trazodone Chronic back pain 868294 002 G89.29 will set up with plastic surgeon for consult with plastic surgeon [id number] [facility] [address] [facility],[place] [address] 02/20/2024 13:29:51 02/20/2024 15:12:06 Hyperlipidemia 43214937 E78.2 no statins Asthma 721936943 J45.50 worseningw ill switch to ventolin since pro air is off market Body mass index 30+ - obesity 681765654 Z68.34 agreed to start on phentermin e for the weight loss since diet and exercise alone have not helped Depressive disorder 0397 9007 F32.0 will set up with venlafaxin e for the depression less weight gain Thoracic back pain 22051 8004 M54.6 agreed to PT referral for eval and treatment plan Depression screening 171 371525 Z13.[address] [id number] Ankur Massey [facility] Internal Medicine [address] [facility],[address] [employer] [address] 03/30/2024 09:52:37 03/30/2024 15:00:34 Depression screening 237929331 Z13.[address] Asthma 218963485 J45.50 worseningw ill switch to ventolin since pro air is off market Irritable bowel syndrome 65269662 K58.2 will set up with consumer education specialist Insomnia 181814358 G47.0 9 will continue ambien 633735 Ankur Massey [facility] Internal Medicine [address] [facility],[place] [address] 06/01/2024 09:50:39 06/01/2024 10:28:03 Asthma 423273388 J45.50 stable Polycystic ovary syndrome of bilateral ovaries 897799014 E28.2 stable Body mass index 30+ - obesity 723762371 Z68.34 increased dose of phentermin e and added topimax for combo treatment Insomnia 905750908 G47.0 9 will continue ambienno dose adjustment [id number] Ankur Massey [facility] Internal Medicine [address] [facility],[place] [address] 08/06/2024 08:50:32 08/06/2024 11:21:52 Body mass index 30+ - obesity 437948365 Z68.34 increased dose of topimax for combo treatment Asthma 935512660 J45.50 stable Depressive disorder 3548 9007 F32.0 stable Exacerbati on of mild persistent asthma 853976189 J45.31 will start on short pred burst for residual inflammati on Hyperlipidemia 28195567 E78.2 no statins Thyroid nodule 242280889 E04.1 routine recheck [id number] Ankur Massey DO [facility] Internal Medicine [address],[place] [address] 01/23/2025 10:11:55 01/23/2025 11:24:06 Body mass index 30+ - obesity 840605813 Z68.33 108828 GERD, HLD, IFG, possibly sleep apnea 599579 Ankur Massey [facility] Internal Medicine [address] [facility],[place] [address] 02/26/2025 10:42:20 02/26/2025 15:03:27 Depression screening 391325090 Z13.[address] Body mass index 30+ - obesity 100795647 Z68.33 GERD, HLD, IFG, possibly sleep apneaincre ase to the 5 mg and then 7.5 mg after the 4 weeksis losing inches from her waist, arms and legs that she has been noticing Slow trans it constipation 99491085 K59.01 8838 is holding on doing a CT scan w/wothinks after discussion she will call them back and go forward with the CT scan Uncomplica ny severe persistent asthma 686345571 J45.50 8867390 stable 901800 Ankur Massey [facility] Internal Medicine [address] [facility] [place] [address] 03/27/2025 10:19:36 03/27/2025 12:04:46 Polycystic ovary syndrome 060709149 E28.2 stable Slow trans it constipation 24310061 K59.01 8838 is holding on doing a CT scan w/wothinks after discussion she will call them back and go forward with the CT scan Depression screening 171 092410 Z13.[address] Body mass index 30+ - obesity 452520158 Z68.33 continue on the medication , increase the 7.5 mg Nausea 110942839 R11.0 will set up with refills [id number] Ankur Massey [facility] Internal Medicine [address] [facility], [place] [address] 04/26/2025 14:09:19 04/26/2025 15:12:33 Depression screening 959992105 Z13.[address] Body mass index 30+ - obesity 149062842 Z68.33 continue on the medication , increase the 7.5 mg Insomnia 306379528 G47.0 9 will continue ambienno dose adjustment Mild depression 21778825 3 F32.A 654982 stable 737545 [facility] [address] [facility],[place] [address] 06/04/2025 14:26:37 06/05/2025 09:30:37 Depression screening 543010252 Z13.[address] Body mass index 30+ - obesity 610156568 E66.9 5035715 stable Aversion t o food or drink 799409819 R63.39 4502594 Adult atte ntion deficit hyperactivity disorder 325255322 F90.9 371671 Nausea 199368321 R11.0 will set up with refills 345656 Ankur Massey [facility] Internal Medicine [address],[place] [facility] [place] [address] 07/02/2025 14:00:27 07/02/2025 15:47:16 Depression screening 345235400 Z13.[address] Body mass index 30+ - obesity 348272500 E66.9 stable Adult atte ntion deficit hyperactivity disorder 261649176 F90.9 141154 Mild depression 17865782 3 F32.A stable Health Concerns Section Related Observation LastModified by Organization Detai ls LastModified Time None Recorded Concern Status LastModified by Organization Details LastModified Time None Recorded Advance Directives Directive None Recorded Payers Insurance Date Sequence Insurance Name Policy Number Policy Vaughn Covered Member ID Vaughn Member ID Guarantor Name 01/23/2025 1 [facility] [employer] [facility] [id number] Ree Gleason [id number] Ree Farah 06/29/2025 1 [facility] [place] [place] Ree Farah [id number] Ree Farah Notes Date Note Type Note Provider Name a mo Address Organization Details Recorded Time 02/26/2025 text/html ROS as noted in the HPI f/u appt the patient is doing well on the medicationno side effects that she has noted the patient has been on the 2.5 mg of zepbound since Carmelina patient agreed to go up to the 5 mg of zepbound for the next four weeks will continue up to the medication, trying to at least the 7.5 mg 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[employer] and GIhad questions about the GI doing a CT scan to check on endometriosis (mapping it), had hysterectomy, no estrogen influence, but it could have scarred down and be what's causing complications will go ahead with the CT, will call GI back the patient will continue to go up on the medication TJ GALINDO [address] [place], [address], [facility] 02/26/2025 11:41:34 03/27/2025 text/html ROS as noted in the HPI f/u appt 02/26/25 appt: the patient is doing well on the medicationno side effects that she has noted the patient has been on the 2.5 mg of zepbound since Carmelina patient agreed to go up to the 5 mg of zepbound for the next four weeks will continue up to the medication, trying to at least the 7.5 mg 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[employer] and GIhad questions about the GI doing a CT scan to check on endometriosis (mapping it), had hysterectomy, no estrogen influence, but it could have scarred down and be what's causing complications will go ahead with the CT, will call GI back the patient will continue to go up on the medication 03/27/25: patient is here for her one month check in for weights and progress on the zepbound, has been on the 5 mg dose x 4 weeksthe patient reports she is doing well the patient denies side effectsworking great, down 8 pounds, will cont to go up on the dose to eh 7.5 mg for continued progressneeds zofran refill (occasional nausea with first inj, but resolves) bowel movements baseline, no effect from the medication also working on her diet and exercise level which has been going well TJ GALINDO [address] [place], [address], [facility] 03/27/2025 11:17:37 04/26/2025 text/html ROS as noted in the HPI medication f/u the patient is down 13 pounds from original dose, starting at 207 lbs to 194 lbswill increase with to the 10 mg dosage, patient is tolerating okay, will continue to monitor progress the patient will add buspirone for depressive symptoms, mildhasn't done well with SSRI's SNRI's in the past the patient sleep is doing okay, will continue ambien will f/u in a month TJ GALINDO [address] [place], [address], [facility] 04/26/2025 14:59:05 06/04/2025 text/html ROS as noted in the HPI 1 mos f/u BP is excellent today: 128/80 L arm sitting the patient is here for her one month f/uthe patient has been using the 10 mg of the zepbound, did have a lot of vomiting after the new injectionthe patient reports that she has hx of constipation, no major changes with the injectionthe patient reports some body aches, but they resolved (had them on statins, but they also resolved) otherwise doing wellthe patient and I discussed optionsshe would like to continue going up to the next dose discussed hormone replacement possibly? will seevs ADHD treatment TJ GALINDO [address] [place], [address], [facility] 06/04/2025 15:07:14 07/02/2025 text/html ROS as noted in the HPI f/u weight The patient presents to the office for evaluation and assessment for concerns of ADHD symptoms DSM-5 Criteria of ADHD to help diagnosis adults: A. A persistent pattern of inattention and/or hyperactivity-impul sivity that interferes with functioning or development, as characterized by (1) and/or (2): 1 . Inattention Six (or more) of the following symptoms have persisted for at least six months to a degree that is inconsistent with developmental level and that negatively impacts directly on social and academic/occupation al activities: -a. Fails to give close attention to details or makes careless mistakes at work, or during other activities (eg, overlooks or misses details, work is inaccurate). X -b. Has difficulty sustaining attention in tasks or play activities (eg, has difficulty remaining focused during conversations, or lengthy reading). X -c. Does not seem to listen when spoken to directly (eg, mind seems elsewhere, even in the absence of any obvious distraction). -d. Does not follow through on instructions and fails to finish duties in the workplace (eg, starts tasks but quickly loses focus and is easily sidetracked). X -e. Has difficulty organizing tasks and activities (eg, difficulty managing sequential tasks; difficulty keeping materials and belongings in order; messy, disorganized work; has poor time management; fails to meet deadlines). X -f. Avoids, dislikes, or is reluctant to engage in tasks that require sustained mental effort (preparing reports, completing forms, reviewing lengthy papers). -g. Loses things necessary for tasks or activities (eg, pencils, books, tools, wallets, keys, paperwork, eyeglasses, mobile telephones). -h. Is easily distracted by extraneous stimuli (for older adolescents and adults, may include unrelated thoughts). X -i. Is forgetful in daily activities (eg, returning calls, paying bills, keeping appointments). 2 . Hyperactivity and impulsivity Six (or more) of the following symptoms have persisted for at least six months to a degree that is inconsistent with developmental level and that negatively impacts directly on social and academic/occupation al activities: -a. Often fidgets with or taps hands or feet or squirms in seat. -b. Often leaves seat in situations when remaining seated is expected -c. In adults: restlessness X -d. Often unable to engage in leisure activities quietly. -e. Is often on the go, acting as if driven by a motor (eg, is unable to be or uncomfortable being still for extended time, as in restaurants, meetings: may be experienced by others as being restless or difficult to keep up with). -f. Often talks excessively. X -g. Often blurts out an answer before a question has been completed (eg, completes people's sentences; cannot wait for turn in conversation). -h. Often has difficulty waiting his or her turn (eg, while waiting in line). -i. Often interrupts or intrudes on others (eg, butts into conversations, games, or activities; may start using other people's things without asking or receiving permission; for adolescents and adults, may intrude into or take over what others are doing). B. Several inattentive or hyperactive-impulsi ve symptoms were present prior to age 12 years. C. Several inattentive or hyperactive-impulsi ve symptoms are present in two or more settings (eg, at home, school, or work; with friends or relatives; in other activities). D. There is clear evidence that the symptoms interfere with, or reduce the quality of, social, academic, or occupational functioning. E. The symptoms do not occur exclusively during the course of schizophrenia or another psychotic disorder and are not better explained by another mental disorder (eg, mood disorder, anxiety disorder, dissociative disorder, personality disorder, substance intoxication or withdrawal) the patient and I discussed optionsdid do bupropion, no effectwill trial stimulant medications cont on current dose of zepbound TJ GALINDO [address] [place], [address], [facility] 07/02/2025 14:40:16 OBGyn Episode No OBEpisode recorded.
[2025-07-09] MEDS: oxyCODONE HCl Immed Release 5 MG TABLET PO (07:27)
[2025-07-09 07:55] VITALS: BP 122/76; PULSE 98; RESP 16; TEMP 36.6; O2SAT 99
== END 2025-07-09 07:57 | disposition home or self-care (01) ==
PROVIDERS: Emergency Provider Emergency Medicine; PCP Internal Medicine
DX: S82.851D Displaced trimalleolar fracture of right lower leg, subsequent encounter for closed fracture with routine healing (principal); M25.571 Pain in right ankle and joints of right foot
CPT/HCPCS: 96372; 99283; 99284; J1885

== ENCOUNTER 2025-07-09 21:43 | Emergency (ER) | payer OTHER, SELFPAY ==
[2025-07-09 21:47] VITALS: BP 157/82; PULSE 94; RESP 16; TEMP 36.1; O2SAT 100; BMI 28.3
--- NOTE | 2025-07-10 00:32 | ED.GENADULT ---
HPI - General Adult General Chief complaint: Extremity Problem Stated complaint: right foot circulation/here this AM Time Seen by Provider: 07/09/25 23:39 Source: patient Limitations: no limitations History of Present Illness ED Provider: Ny Horton PA-C HPI narrative: 55-year-old female presents with right lower extremity pain. Patient sustained a trimalleolar fracture of the right ankle, she was placed in both a sugar-tong and posterior splint. She needed to return to the emergency department given the splint was too tight, it was causing discoloration of her toes, worsening pain and paresthesia. This is the patient's 3rd visit to the emergency room to have the splint adjusted. Related Data Home Medications ?Medication ?Instructions ?Recorded ?Confirmed albuterol sulfate 90 mcg/actuation 2 puff inhalation Q6H PRN asthma 06/28/23 07/15/25 aerosol inhaler (Ventolin HFA) docusate sodium 100 mg tablet 100 mg PO DAILY 06/28/23 07/15/25 montelukast 10 mg tablet 10 mg PO DAILY 06/28/23 07/15/25 fluticasone fur. 100 mcg-umeclid 1 ea inhalation DAILY 05/29/24 07/15/25 62.5 mcg-vilant 25 mcg inhalat.powder (Trelegy Ellipta) guselkumab 100 mg/mL subcutaneous 100 mg subcut Q3M 06/12/24 07/15/25 auto-injector (Tremfya) zolpidem 5 mg tablet 10 mg PO BEDTIME 06/12/24 07/15/25 tirzepatide (weight loss) 12.5 12.5 mg subcut QWEEK 07/11/25 07/15/25 mg/0.5 mL subcutaneous pen injector (Zepbound) ondansetron HCl 8 mg tablet 8 mg PO BID PRN Nausea 07/15/25 07/15/25 Previous Rx's ?Medication ?Instructions ?Recorded linaclotide 145 mcg capsule 145 mcg PO DAILY #30 caps 03/14/25 (Linzess) gabapentin 300 mg capsule 300 mg PO TID PRN pain #21 caps 07/10/25 oxycodone-acetaminophen 5 mg-325 1 tab PO Q4-6H PRN pain (scale 07/15/25 mg tablet (Percocet) score 4-6) 7 days #42 tabs Allergies Allergy/AdvReac Type Severity Reaction Status Date / Time No Known Allergies Allergy Verified 07/09/25 21:49 Review of Systems Review of Systems: Yes all other systems are reviewed and are negative Constitutional: Constitutional: Denies fatigue and Denies fever(s) Cardiovascular: Cardiovascular: Reports acrocyanosis and Reports cool extremities Musculoskeletal: Musculoskeletal: Denies numbness and Reports tingling Integumentary/Breasts: Skin/Breast: Reports change in pigmentation Neurologic: Denies numbness and Reports tingling Endocrine: Endocrine: Denies fatigue PMFSH Past Medical History Attestation statement: The following information was validated with the patient. Medical History (Updated 07/15/25 @ 13:32 by Ny Medina RN) IBS (irritable colon syndrome) Psoriatic arthritis Endometriosis of abdomen Arthritis High cholesterol Asthma Surgical History (Updated 07/12/25 @ 08:47 by Ny Medina RN) Hx of section Hx of adenoidectomy Hx of tonsillectomy Hx laparoscopic cholecystectomy Hx of hysterectomy Hx of colonoscopy History of esophagogastroduodenoscopy (EGD) Social History Social History (Updated 07/11/25 @ 08:38 by DUSTIN Singletary) Household Members Other:: two adult sons Are you a primary lawn care technician to a significant other at home: No Do you presently have visiting nurse or other home services: No Patient Tobacco Use Status: Never used Tobacco Use of substances other than those prescribed or required for medical reasons: No Have you been hit, kicked, punched, or otherwise hurt by someone within the past year? 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 ED Vital Signs: Vital Signs - 24 hr 07/09/25 21:47 Temperature 97 F Pulse Rate 94 Respiratory Rate 16 Blood Pressure 157/82 H Pulse Oximetry 100 Oxygen Delivery Method Room Air BMI result Body Mass Index 28.3 Const Other: Alert, appears extremely uncomfortable Orientation/consciousness: patient oriented x3 Resp Effort & Inspection: normal respiratory effort Cardio Other: Once Isaias wrap removed, the cyanosis of the toes resolved, she is warm and well perfused Skin Other: Warm dry no rash Neuro General: patient oriented x3, gait normal, no focal motor deficits and CN's II-XI intact bilaterally Psych Other: Cooperative Medications Administered Discontinued Medications Generic Name Dose Route Start Last Admin Trade Name Freq PRN Reason Stop Dose Admin Gabapentin 300 mg 07/10/25 00:21 07/10/25 00:35 Gabapentin 300 Mg Capsule PO 07/10/25 00:22 300 mg ONCE ONE Administration Medical Decision Making Medical Decision Making [facility] Narrative: 55-year-old female presents with right lower extremity pain. Patient sustained a trimalleolar fracture of the right ankle, she was placed in both a sugar-tong and posterior splint. She needed to return to the emergency department given the splint was too tight, it was causing discoloration of her toes, worsening pain and paresthesia. This is the patient's 3rd visit to the emergency room to have the splint adjusted. Problem: Known trimalleolar fracture History: Per patient I have considered the following differential diagnoses: Need to have splint replaced Plan: I have rewrapped the leg, using gentle even compression. I also reviewed the patient's analgesia schedule with her, her pain has been poorly controlled. I did explain given the splint had to be removed 3 different times, this was not helping her discomfort. She verbalizes understanding. She has pending follow up with the orthopedic service in 1 week. No indication for repeat labs or imaging Differential Diagnosis Differential Diagnoses: The differential diagnosis associated with the presentation includes See medical decision-making Admission/Observation Consideration of admission/observation: Escalation of care including admission/observation considered Not applicable Discharge Plan Discharge Clinical Impression: Closed trimalleolar fracture of right ankle Patient Disposition: Home, Self-Care Instructions: Ankle Fracture (ED) Additional Instructions: Keep the splint in place. Take the pain regimen as directed see the below instructions: stagger the below medications so you always have analgesia in your system Oxycodone 5 mg every 6 hours Take ibuprofen 600 mg with Tylenol 1000 mg every 6 hours Gabapentin 300 mg every 8 hours Prescriptions: New gabapentin 300 mg capsule 300 mg PO TID PRN (Reason: pain) Qty: 21 0RF No Action Linzess 145 mcg capsule 145 mcg PO DAILY Qty: 30 2RF oxycodone-acetaminophen [Percocet] 5-325 mg tablet 1 tab PO Q4-6H PRN (Reason: pain (scale score 4-6)) 7 Days Qty: 42 0RF Rx Instructions: Partial Fill upon patient request. Pharmacy to please bring to PACU on date of surgery 07/17/25 ondansetron HCl 8 mg tablet 8 mg PO BID PRN (Reason: Nausea) Trelegy Ellipta 100-62.5-25 mcg blister with device 1 ea INHALATION DAILY albuterol sulfate [Ventolin HFA] 90 mcg/actuation HFA aerosol inhaler 2 puff inhalation Q6H PRN (Reason: asthma) montelukast 10 mg tablet 10 mg PO DAILY docusate sodium 100 mg tablet 100 mg PO DAILY Zepbound 12.5 mg/0.5 mL pen injector 12.5 mg subcut QWEEK Rx Instructions: takes on wednesdays zolpidem 5 mg tablet 10 mg PO BEDTIME Tremfya 100 mg/mL auto-injector 100 mg subcut Q3M Interventions: ED Discharge Assessment Last Done: 07/10/25 01:09 Discharge Date/Time: 07/10/25 01:16 Print Language: Senegalese
[2025-07-10 01:09] VITALS: BP 145/80; PULSE 90; RESP 16; TEMP 36.1; O2SAT 100
== END 2025-07-10 01:16 | disposition home or self-care (01) ==
PROVIDERS: Emergency Provider Emergency Medicine; PCP Internal Medicine
DX: S82.851D Displaced trimalleolar fracture of right lower leg, subsequent encounter for closed fracture with routine healing (principal)
CPT/HCPCS: 99282; 99283

== ENCOUNTER 2025-07-11 08:16 | Outpatient (REF) | payer OTHER, SELFPAY ==
--- NOTE | ~2025-07-11 | XR_ITS ---
CLINICAL HISTORY: M25.571 - Pain in right ankle and joints of right foot --- Additional Notes or Special Instructions: xray in splint 3 view right ankle Comparison: CR/OK/SR - XR ANKLE 3 OR MORE VIEWS RIGHT - 07/08/25 12:51 EDT Findings: Bimalleolar fracture is again seen with mild lateral displacement of the distal fragments. There is medial translation of the distal tibia relative to the talus. Overlying splint is noted. IMPRESSION: 1. Bimalleolar fracture with mild lateral displacement of the distal fragments, similar to prior exam. 2. Medial translation of the distal tibia relative to the talus. This document has been electronically signed by: Dino Ambriz on 07/12/2025 10:02:21
== END 2025-07-11 08:17 | disposition home or self-care (01) ==
LOC: HO.HOSX 08:16
PROVIDERS: PCP Internal Medicine; Visit Provider Physician Assistant
DX: S82.851A Displaced trimalleolar fracture of right lower leg, initial encounter for closed fracture (principal); W19.XXXA Unspecified fall, initial encounter
CPT/HCPCS: 27816; 73610

== ENCOUNTER 2025-07-11 08:16 | Outpatient (AMB) | payer OTHER, SELFPAY ==
--- NOTE | 2025-07-11 08:23 | MHC.OFFVIS ---
Vital Signs 07/11/25 08:44 Height 5 ft 5 in Weight 170 lb BMI 28.3 Intake Visit Reasons: FC: RT Closed trimalleolar fracture, DOI 07/08/25 Intake Note: Ree is a 55 year old female who presents today as a new patient, for an ER follow up of right ankle fracture, DOI 07/08/25. Patient was seen at [facility] status post trip and fall over baby gate, x-rays were obtained and she was placed in a splint. Today patient reports ongoing pain, current pain level is 8 out of 10. States that she feels pressure in her heel, possibly from the splint. She has been using Tylenol, Motrin, Oxy and nurotain. Allergies No Known Allergies Allergy (Verified 07/09/25 21:49) Medication List - Last Reconciled 07/11/25 by Navin Flood PA-C acetaminophen 1,000 mg (2 x 500 mg) PO Q6H 5 days albuterol sulfate 90 mcg/actuation (Ventolin HFA) 2 puffs inhalation Q6H PRN docusate sodium 100 mg PO DAILY qwabdbrpjfm-hswmjreyo-zkkmfeuu 100-62.5-25 mcg (Trelegy Ellipta) 1 ea inhalation DAILY gabapentin 300 mg PO TID PRN guselkumab (Tremfya) 100 mg subcut .3 mos linaclotide (Linzess) 145 mcg PO DAILY montelukast 10 mg PO DAILY oxycodone 5 mg PO Q6H PRN tirzepatide (weight loss) (Zepbound) 12.5 mg subcut QWEEK zolpidem mg PO HPI HPI FC: RT Closed trimalleolar fracture, DOI 07/08/25: Details: 55-year-old female presents to the office today after an injury she sustained to the right ankle on 06/2025. She states she was trying to get over a baby gate when she fell. She noted immediate pain and deformity and was seen in the emergency department where x-rays were obtained which were significant for a trimalleolar fracture of the right ankle. Fracture was reduced in the emergency department and the patient was placed in a splint and referred to our office for ortho eval. 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 Review of Systems Const All systems reviewed & are unremarkable except as noted in HPI and below Physical Exam Vital Signs: BMI result Body Mass Index 28.3 Const General: cooperative, healthy appearing, comfortable, no acute distress, well developed and alert Orientation/consciousness: patient oriented x3 HEENT Head: Yes normal to inspection, Yes normocephalic and Yes atraumatic Eyes General: appearance normal, both eyes and all related structures Neck Neck: Yes normal visual inspection and Yes no lymphadenopathy Resp Effort & Inspection: normal respiratory effort and able to speak in complete sentences Cardio Rate: regular rate Peripheral pulses: Peripheral pulses 2+ throughout GI Inspection: Yes normal to inspection Palpation (GI): Soft to palpation Skin General skin exam: no rashes or lesions noted Neuro General: patient oriented x3 Extrem Other: Right ankle skin is intact there are 2 fracture blisters on the medial aspect of the ankle with no drainage. Mild swelling around the foot and ankle. Tenderness over the medial and lateral malleolus. Neurovascularly intact. Psych Appearance: grossly normal Mental Status: mental status grossly normal Office Procedures Casting/Splints 22822-Kntsl Leg splint application Procedure code (CPT) selection complete Results Reviewed Results Reviewed: Xrays were obtained in the office today and personally reviewed by me show trimal ankle fx with disruption of the ankle mortise Assessment & Plan Assessment & Plan (1) Closed trimalleolar fracture of right ankle: Code(s): S82.851A - Displaced trimalleolar fracture of right lower leg, initial encounter for closed fracture Category: Medical Qualifiers: Encounter type: initial encounter Qualified Code(s): S82.851A - Displaced trimalleolar fracture of right lower leg, initial encounter for closed fracture Plan: 55 yo female with a right trimalleolar ankle fracture which would benefit from surgical intervention for optimal functioning. The patient does understand nonsurgical intervention would result in significantly limited function risk for joint collapse and severe arthritis. Given the patient's activity level and she is ambulatory at baseline, it would be recommended to pursue surgical intervention. We discussed the procedure in detail along with the risks benefits and alternatives. Risks including but not limited to infection, injury to surrounding nerves and tissue and bone, small and large vessels, stiffness,need for further surgery, DVT/PE along with intraoperative complications including but not limited to . We discussed postoperative recovery which includes 6 weeks nonweightbearing with a cast followed by 6 weeks ambulation with a boot and physical therapy. Given her line of work requires a lot of driving she will be out of work for likely 6 weeks at least and then when she is in a boot I recommend no driving with the boot. The patient does express understanding we would like to proceed with ORIF of the right ankle with Dr. Wray. The patient will be booked accordingly. She was placed in a posterior splint while in the office today. Orders: Orders XR ankle RT min 3V Today M25.571 - Pain in right ankle and joints of right foot Coding Level of Care Code New Pt Level 4 (81266) Complex EM visit Add On G2211 Diagnoses Closed trimalleolar fracture of right ankle, initial encounter S82.859Q Encounter type: initial encounter CPT Codes Splint - CPT: 74054-Cqrhp Leg splint application ([id number])
--- OUTSIDE RECORDS SUMMARY | 2025-07-11 08:35 | XMS_ITS | Continuity of Care Document ---
Author Organization [facility] Address [address] [place] [address] [place] [address] Assessment No assessment recorded. Plan of Treatment Reminders Order Date Submit Date Provider Last Modified By Organization Details Last Modified Time Details Appointments FOLLOW UP 15 2024 10:30A M TJ GALINDO Not available Not available Not available Lab None recorded. Referral None recorded. Procedures None recorded. Surgeries None recorded. Imaging None recorded. Medication Orders oxycodone 5 mg tablet 2024 025 [facility], [address] [place], [address], 07/10/2025 14:58:20 Patient TargetsNo targets recorded. Patient InstructionsNo instructions recorded. Reason for Referral None Reported. Results Created Date Observation Date Name Description Value Unit Range Abnormal Flag Note LastModifiedBy Organization Detail LastModifiedTime 07/08/2007/08/2025 XR, knee No observ ation record ed. [email or web address] [facility] (Medical Records) [address] [place] [address], [address], 07/08/2025 13:28:46 07/08/2007/08/2025 XR, ankle No observ ation record ed. [email or web address] [facility] (Medical Records) [address] [place] [address], [address], 07/08/2025 13:28:57 07/08/20 25 07/08/2025 XR, ankle No observ ation record ed. [email or web address] [facility] (Medical Records) [address] [place], [address], 07/08/2025 13:29:09 Result Notes None recorded. Problems Name Problem SNOMED Code Status Onset Date Resolution Date Notes Provider Name and Address Organization Details Recorded Time Asthma 876389914 Active 2017 Vannesa valdivia [facility] 8 14:21:55 History of depressio n 142948405 Active 2017 Vannesa valdivia [facility] 8 14:22:01 Acid reflux 049991933 Active 2017 Vannesa valdivia [facility] 8 14:22:15 Psoriasis 6657146 Active 2017 Juana Quinonez NP, S [address] [place] [address], [address], [facility] 8 11:45:40 Thyroid nodule 000462845 Active 2017 Juana Quinonez NP, S [address] [place] [address], [address], [facility] 8 11:45:50 Pain of left hip joint 006258404819 100 Active 2021 TJ GALINDO [address] [place] [address], [address], [facility] 2 10:39:06 Candidias is of skin 09274421 Active 2021 TJ GALINDO [address] [place] [address], [address], [facility] 2 10:40:16 Polycysti c ovary syndrome 894700870 Active 2022 TJ GALINDO [address] [place] [address], [address], [facility] 3 12:10:08 Hyperlipi demia 37919328 Active 2022 TJ GALINDO [address] [place] [address], [address], [facility] 3 12:10:23 Insomnia 638760765 Active 2022 TJ GALINDO [address] [place], [address], [facility] 3 12:17:53 Chronic back pain 074866883 Active 2022 TJ GALINDO [address] [place], [address], [facility] 3 12:20:10 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 414887954 Active 2022 TJ GALINDO [address] [place] [address], [address], [facility] 3 14:05:44 Depressiv e disorder 85130958 Active 2023 TJ GALINDO [address] [place] [address], [address], [facility] 4 14:09:02 Thoracic back pain 129952262 Active 2023 TJ GALINDO [address] [place] [address], [address], [facility] 4 14:11:40 Irritable bowel syndrome 36109448 Active 2023 TJ GALINDO [address] [place] [address], [address], [facility] 4 10:13:52 Exacerbat ion of mild persisten t asthma 583469582 Active 2023 TJ GALINDO [address] [place] [address], [address], [facility] 4 10:43:51 Nausea 295457251 Active 2024 Ankur Massey DO [address] [place] [address], [address], [facility] 5 22:59:03 [address] transit constipat ion 21886447 Active 2024 TJ GALINDO [address] [place] [address], [address], [facility] 5 11:28:06 Uncomplic ated severe persisten t asthma 241470449 Active 2024 TJ GALINDO [address] [place] [address], [address], [facility] 5 11:28:29 Mild depressio n 656596089 Active 2024 TJ GALINDO [address] [place] [address], [address], [facility] 5 14:52:09 Body mass index 30+ - obesity 705862359 Active 2024 TJ GALINDO [address] [place] [address], [address], [facility] 5 14:41:22 Adult attention deficit hyperacti vity disorder 722927128 Active 2024 TJ GALINDO [address] [place] [address], [address], [facility] 5 14:53:06 Aversion to food or drink 906091954 Active 2024 TJ GALINDO [address] [place] [address], [address], [facility] 5 15:01:49 Closed fracture of right ankle 847976142752 28313 Active 2024 TJ GALINDO [address] [place] [address], [address], [facility] 5 14:56:55 Problem Notes None recorded. Procedures Surgical History Date Name Laterality Status Provider Name and Address Organization Details Recorded Time 995 Cholecystectomy completed Juana Quinonez NP, S [address] [place] [address], [address], [facility] 12/29/2017 11:47:57 985 Remove tonsils and adenoids completed Juana Quinonez NP, S [address] [place], [address], [facility] 12/29/2017 11:47:40 Imaging Results None recorded. Procedure Notes None recorded. Medical Equipment None Reported. Allergies Allergen ID Allergen Name Allergen Category Reaction Reaction Severity Criticality Documentation Date Start Date Code Code System Note Provider Name and Address Organization Details Recorded Time 8530 Product containin g 3-hydroxy -3-methyl glutaryl- coenzyme A reductase inhibitor (product) medicatio n Not available Not available Not available 08/06/2024 64776 009 TJ MADSEN [address] [place], [address], [facility] 10:49:35 Medications Name Sig Start Date Stop [...] Available dextroamphe tamine-amph etamine 10 mg tablet TAKE ONE TABLET BY MOUTH EVERY DAY FOR 14 DAYS active Not Available Not Available No t Available niacin ER 500 mg tablet,exte nded release [...] Available Not Available oxycodone 5 mg tablet Take 1 tablet every 6-8 hours by oral route as needed for 7 days. 2024 active Not Available Not Available Not Avai lable bupropion HCl XL 300 mg 24 hr [...] DIRECTED BY [facility] AT [facility]. 02/19 completed Not Available Not Available Not [...] 2.5 mg/0.5 mL subcutaneou s pen injector active Not Available Not Available Not Available Zepbound 12.5 mg/0.5 mL subcutaneou s pen injector Inject 12.5 mg every week by subcutane ous route for 30 days. 2024 active Not Available Not Available Not Avai lable Zepbound 7.5 mg/0.5 mL subcutaneou s pen injector INJECT 7.5 MG EVERY WEEK BY SUBCUTANE OUS ROUTE DIRECTED 06/04 completed Not Available Not Available Not Available Vitals None Recorded Social History Question Answer Notes LastModified by Organizat ion Details LastModified Time Tobacco Smoking Status Never Smoker Not Available [employer] 07/22/2020 03:36:24 What Was The Date Of Your Most Recent Tobacco Screening? 07/02/2025 [email or web address] Information not available 07/02/2025 Sex: Unknown Functional Status Question Answer Note LastModified by Organization D etails LastModified Time Do you or have you ever used any other forms of tobacco or nicotine? No [email or web address] Information not available 05/27/2023 Mental Status None recorded. Family History Relationship Description Onset Age of this Age Resolved Age Notes LastModified by Organization Details LastModified Time Father Hypercholest erolemia vilma Not available 2017 11:49:18 Mother Obesity eskawski Not available 12/29/2017 11:49:29 Mother Migraine eskawski Not available 12/29/2017 11:49:40 Medical History No medical history recorded. Gynecological HistoryNo gynecological history recorded. Obstetrics History GPAL:G 0 P 0 0 0 0 Immunizations Vaccine Type Date Status Note Provider Nam e and Address Organization Details Recorded Time COVID-19, mRNA, LNP-S, PF, 30 mcg/0.3 mL dose 1 completed Gloria valdivia [facility] 07/10/2021 15:54:36 COVID-19, mRNA, LNP-S, PF, 30 mcg/0.3 mL dose 1 completed Gloria valdivia [facility] 07/10/2021 15:54:42 COVID-19, mRNA, LNP-S, PF, 30 mcg/0.3 mL dose 1 completed Gloria valdivia [facility] 07/12/2022 08:11:18 Influenza, split virus, quadrivalent, preservative 0 completed Gloria valdivia [facility] 07/12/2022 08:11:31 Influenza, split virus, quadrivalent, preservative 1 completed Gloria Kim [facility] 07/12/2022 08:11:38 Past Encounters Encounter ID Performer Location Encounter Start Date Encounter Closed Date Diagnosis/Indication Diagnosis SNOMED-CT Code Diagnosis ICD10 Code Diagnosis IMO Codes [facility] [id number] [facility] [address] [address] 07/02/2025 14:00:27 07/02/2025 15:47:16 Depression screening 219861865 Z13.[address] Body mass index 30+ - obesity 710285326 E66.9 stable Adult atte ntion deficit hyperactivity disorder 526494798 F90.9 130377 Mild depression 64090107 3 F32.A stable [id number] Ankur Massey [facility] [address] [address] 07/10/2025 12:24:52 07/10/2025 15:01:28 Closed fracture of right ankle 9668178983 8478368 S82.891A 4324869 refillswit ch to ibu 800 mg TID Health Concerns Section Related Observation LastModified by Organization Detai ls LastModified Time None Recorded Concern Status LastModified by Organization Details LastModified Time None Recorded Payers Encounter Date Sequence Insurance Name Policy Number Policy Vaughn Covered Member ID Vaughn Member ID Guarantor Name 07/10/2025 1 [facility] Ree Farah [id number] Ree Farah Notes Date Note Type Note Provider Name a nd Address Organization Details Recorded Time 5 text/html ROS as noted in the HPI c/o ER f/u The patient is participating in this appointment via telemedicine communication with a phone call (audio) only.The patient consents to use of these platforms in place of an in-person appointment due to either patient being acutely ill (being in office would put our staff and our other patients at risk) or unable to make an in-person appointment due to either lack of transportation, severe medical condition, immunocompromised, etc.The appointment took place over a phone call (audio) due to patient's inability to access or use an audio and visual platform. the patient broke her R ankle (two fractures) with dislocation of the ankleER gave her gabapentin and short course of oxycodoneadjusted her script, the patient directed to elevate and ice and switch ibu to 800 mg TID the patient reports that she has a fu with ortho on need work info, will let me know otherwise discussed her meds, she can continue with all current meds with pain meds at this time TJ GALINDO [address] [place] [address], [address], [facility] 07/10/2025 15:01:27 OBGyn Episode No OBEpisode recorded.
--- OUTSIDE RECORDS SUMMARY | 2025-07-11 08:35 | XMS_ITS | Patient Health Record ---
Author Organization 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 Alcohol use is described as occasional. Problems Problem Type SNOMED Code ICD Code Onset Dates Problem Status W/U Status Risk Notes Problem Hemorrhage of rectum and anus (324638135) Hemorrhage of rectum and anus (569.3) Active confirmed Problem Left lower quadrant pain (418094413) Abdominal pain, left lower quadrant (789.04) Active confirmed Plan Of Treatment Future Test Test Name Order Date COLONOSCOPY 12/10/2011 Insurance Providers Payer Name Payer Address Payer Phone Subscriber Number Group Number Insured Name Patient Relationship to Insured Coverage Start Date Coverage End Date [employer] (NEEDS REFERRA L) [address] [place] [phone] [id number] UMESH ALEXANDRE Self - patient is the insured Medical (General) History Medical History History ICD Code asthma psoriasis Surgical History Surgery Date(Month/Year) cholecystectomy tonsillectomy section x2
--- OUTSIDE RECORDS SUMMARY | 2025-07-11 08:36 | XMS_ITS | Data Portability ---
Author Organization [facility], Telehealth Patient Home Address [address] [place] [address] Assessment No assessment recorded. Plan of Treatment Reminders Order Date Submit Date Provider Last Modified By Organization Details Last Modified Time Details Appointments FOLLOW UP 15 2024 10:30A M TJ GALINDO Not available Not available Not available Lab None recorded. Referral None recorded. Procedures None recorded. Surgeries None recorded. Imaging None recorded. Medication Orders oxycodone 5 mg tablet 2024 [place], [address] [place], [address], 07/10/2025 14:58:20 buspirone 10 mg tablet 2024 [place], [address] [place], [address], 07/02/2025 14:37:55 dextroamp hetamine- amphetami ne 10 mg tablet 2024 [place] [facility], [address] [place], [address], 07/02/2025 14:35:18 Zepbound 12.5 mg/0.5 mL subcutane ous pen injector 2024 [place] [facility], [address] [place], [address], 07/02/2025 14:27:09 ondansetr on HCl 8 mg tablet 2024 025 [place], [address] [place], [address], 07/02/2025 14:28:07 Zepbound 12.5 mg/0.5 mL subcutane ous pen injector 2024 025 [place] [facility], [address] [place], [address], 06/04/2025 15:01:03 zolpidem 5 mg tablet 2024 025 [place] [facility], [address] [place], [address], 04/26/2025 14:47:51 buspirone 10 mg tablet 2024 025 [place] [facility], [address] [place], [address], 04/26/2025 14:55:29 Zepbound 10 mg/0.5 mL subcutane ous pen injector 2024 025 [place] [facility], [address] [place], [address], 06/04/2025 15:00:32 ondansetr on HCl 8 mg tablet 2024 025 [facility], [address] [place], [address], 07/02/2025 14:27:49 Zepbound 7.5 mg/0.5 mL subcutane ous pen injector 2024 025 [place] [facility], [address] [place], [address], 06/04/2025 14:36:04 Patient TargetsNo targets recorded. Patient InstructionsNo instructions recorded. Reason for Referral None Reported. Results Created Date Observation Date Name Description Value Unit Range Abnormal Flag Note LastModifiedBy Organization Detail LastModifiedTime 07/08/20 25 07/08/2025 XR, knee No observ ation record ed. [email or web address] [facility] (Medical Records) [address] [place], [address], 07/08/2025 13:28:46 07/08/20 25 07/08/2025 XR, ankle No observ ation record ed. [email or web address] [facility] (Medical Records) [address] [place], [address], 07/08/2025 13:28:57 07/08/20 25 07/08/2025 XR, ankle No observ ation record ed. [email or web address] [facility] (Medical Records) [address] [place], [address], 07/08/2025 13:29:09 Result Notes None recorded. Problems Name Problem SNOMED Code Status Onset Date Resolution Date Notes Provider Name and Address Organization Details Recorded Time Asthma 601147569 Active 2017 Vannesa valdivia [facility] 8 14:21:55 History of depressio n 944893213 Active 2017 Vannesa valdivia [facility] 8 14:22:01 Acid reflux 157455521 Active 2017 Vannesa valdivia [facility] 8 14:22:15 Psoriasis 5151383 Active 2017 Juana Quinonez NP, S [address] [place] [address], [address], [facility] 8 11:45:40 Thyroid nodule 133178358 Active 2017 Juana Quinonez NP, S [address] [place] [address], [address], [facility] 8 11:45:50 Pain of left hip joint 604033064294 100 Active 2021 TJ GALINDO [address] [place] [address], [address], [facility] 2 10:39:06 Candidias is of skin 86239243 Active 2021 TJ GALINDO [address] [place], [address], [facility] 2 10:40:16 Polycysti c ovary syndrome 688966331 Active 2022 TJ GALINDO [address] [place], [address], [facility] 3 12:10:08 Hyperlipi demia 20368876 Active 2022 TJ GALINDO [address] [place] [address], [address], [facility] 3 12:10:23 Insomnia 741453996 Active 2022 TJ GALINDO [address] [place] [address], [address], [facility] 3 12:17:53 Chronic back pain 032827021 Active 2022 TJ GALINDO [address] [place] [address], [address], [facility] 3 12:20:10 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 189968402 Active 2022 TJ GALINDO [address] [place] [address], [address], [facility] 3 14:05:44 Depressiv e disorder 16317670 Active 2023 TJ GALINDO [address] [place] [address], [address], [facility] 4 14:09:02 Thoracic back pain 050917545 Active 2023 TJ GALINDO [address] [place] [address], [address], [facility] 4 14:11:40 Irritable bowel syndrome 88604074 Active 2023 TJ GALINDO [address] [place] [address], [address], [facility] 4 10:13:52 Exacerbat ion of mild persisten t asthma 309927933 Active 2023 TJ GALINDO [address] [place] [address], [address], [facility] 4 10:43:51 Nausea 933022786 Active 2024 Ankur Massey DO [address] [place] [address], [address], [facility] 5 22:59:03 Slow transit constipat ion 21347311 Active 2024 TJ GALINDO [address] [place] [address], [address], [facility] 5 11:28:06 Uncomplic ated severe persisten t asthma 452362184 Active 2024 TJ GALINDO [address] [place] [address], [address], [facility] 5 11:28:29 Mild depressio n 057815353 Active 2024 TJ GALINDO [address] [place] [address], [address], [facility] 5 14:52:09 Body mass index 30+ - obesity 333843217 Active 2024 TJ GALINDO [address] [place] [address], [address], [facility] 5 14:41:22 Adult attention deficit hyperacti vity disorder 168179756 Active 2024 TJ GALINDO [address] [place] [address], [address], [facility] 5 14:53:06 Aversion to food or drink 225866479 Active 2024 TJ GALINDO [address] [place] [address], [address], [facility] 5 15:01:49 Closed fracture of right ankle 970797995051 07901 Active 2024 TJ GALINDO [address] [place] [address], [address], [facility] 5 14:56:55 Problem Notes None recorded. Procedures Surgical History Date Name Laterality Status Provider Name and Address Organization Details Recorded Time 995 Cholecystectomy completed Juana Quinonez NP, S [address] [place] [address], [address], [facility] 12/29/2017 11:47:57 985 Remove tonsils and adenoids completed Juana Quinonez NP, S [address] [place] [address], [address], [facility] 12/29/2017 11:47:40 Imaging Results None [...] Not available Not available Not available 08/06/2024 [id number] SNOMED TJ GALINDO [address] [place] [address], [address], [facility] 4 10:49:35 Medications Name Sig Start Date [...] DIRECTED BY [facility] DEPARTMEN T AT [facility]. 02/19 completed Not Available Not Available [...] Updated DateTime 5 165.74 cm 32.4 kg/m2 02360.9 g 64 /min 97 % 97 % 144/92 mm[Hg] Jolene Ang [facility] 5 10:54:06 Date Recorded Body height Body mass index (BMI) Body weight Heart rate Oxygen saturation Oxygen saturation in Arterial blood by Pulse oximetry Systolic And Diastolic Provider Name and Address Organization Details Last Updated DateTime 5 165.74 cm 32 kg/m2 24462.9 2 g 64 /min 98 % 98 % 128/86 mm[Hg] Jolene Ang [facility] 5 14:18:16 Date Recorded Body height Body mass index (BMI) Body weight Heart rate Oxygen saturation Oxygen saturation in Arterial blood by Pulse oximetry Systolic And Diastolic Provider Name and Address Organization Details Last Updated DateTime 5 165.74 cm 31 kg/m2 88630.3 7 g 80 /min 98 % 98 % 128/80 mm[Hg] Stephanie Boykin [facility] 5 14:32:05 Date Recorded Body height Body mass index (BMI) Body weight Heart rate Oxygen saturation Oxygen saturation in Arterial blood by Pulse oximetry Systolic And Diastolic Provider Name and Address Organization Details Last Updated DateTime 5 165.74 cm 30.1 kg/m2 96419.8 1 g 79 /min 97 % 97 % 128/80 mm[Hg] Stephanie Ashutosh [facility] 5 14:11:28 Social History Question Answer Notes LastModified by Organizat ion Details LastModified Time Tobacco Smoking Status Never Smoker Not Available [employer] 07/22/2020 03:36:24 What Was The Date Of Your Most Recent Tobacco Screening? 07/02/2025 [email or web address] Information not available 07/02/2025 Sex: Unknown Functional Status Question Answer Note LastModified by Organization D etails LastModified Time Do you or have you ever used any other forms of tobacco or nicotine? No [email or web address] Information not available 05/27/2023 Mental Status None recorded. Family History Relationship Description Onset Age of this Age Resolved Age Notes LastModified by Organization Details LastModified Time Father Hypercholest erolemia [email or web address] Not available 2017 11:49:18 Mother Obesity eskawski [...] mcg/0.3 mL dose 1 completed Gloria valdivia [facility] 07/10/2021 15:54:36 COVID-19, mRNA, LNP-S, PF, 30 mcg/0.3 mL dose 1 completed Gloria valdivia [facility] 07/10/2021 15:54:42 COVID-19, mRNA, LNP-S, PF, 30 mcg/0.3 mL dose 1 completed Gloria valdivia [facility] 07/12/2022 08:11:18 Influenza, split virus, quadrivalent, preservative 0 completed Gloria valdivia [facility] 07/12/2022 08:11:31 Influenza, split virus, quadrivalent, preservative 1 completed Gloria valdivia [facility] 07/12/2022 08:11:38 Past Encounters Encounter ID Performer Location Encounter Start Date Encounter Closed Date Diagnosis/Indication Diagnosis SNOMED-CT Code Diagnosis ICD10 Code Diagnosis IMO Codes Diagnosis Note [id number] Ankur Massey [facility] [address] [facility] [place] [address] 12/30/2017 10:20:38 12/30/2017 12:29:00 Dyspnea on exertion 55289693 R06.09 Iron defic iency anemia 17874654 D50.9 provided with list of foods high in iron, explained importance Left lower quadrant pain 859609071 R10.32 Asthma 137484839 J45.90 9 follow, continue with inhalers Fatigue 68798518 R53.83 ? r/t fe deficiency anemia, follow Gastroesop hageal reflux disease 920650976 K21.9 negative UGI, [id number] Ankur Massey [facility] [address] [facility] [place] [address] 01/09/2018 09:28:30 01/09/2018 10:22:38 Acute pelvic pain 845109346 R10.2 abnormal u/s awaiting silk hanger consult Iron defic iency anemia 11346583 D50.9 reiterated importance Dyspnea on exertion 6084 5006 R06.09 neg. CXR, ? r/t anemia, follow Gastroesop hageal reflux disease 436511640 K21.9 negative UGI, but symptomati c Asthma 411110121 J45.90 9 follow, continue with inhalers Depressive disorder 4113 9007 F32.89 continue sertraline [id number] Ankur Massey [facility] [address] [facility] [place] [address] 02/07/2018 11:24:21 02/07/2018 12:27:12 Asthmatic bronchitis 282288702 J45.909 Moderate p ersistent asthma 145230922 J45.40 call if no better Iron defic iency anemia 94130132 D50.9 follow after silk hanger /lupron, had colonoscop y 5 years ago Dyspnea on exertion 6084 5006 R06.09 mildly improved, follow [id number] Ankur Massey DO [facility] [address] [facility] [place], [place] [address] 02/20/2018 10:55:17 02/20/2018 17:25:32 Acute bronchitis 39616823 J20.9 resolved, will fax letter to surgeon, unable to locate in system [id number] Ankur Massey DO [facility] [address] [facility] [place], [employer] [place] [address] 09/22/2018 13:24:58 09/22/2018 13:56:08 Asthma 192265354 J45.909 on advair on proair History of depression 16 8741054 Z86.59 on sertraline Acid reflux 251129498 K2 1.9 quiet without meds Acute sinusitis 15982212 J01.90 favor bacterial infection [id number] Ankur Massey DO [facility] [address] [facility] [place], [employer] [place] [address] 01/15/2019 13:50:42 01/15/2019 16:24:14 Psoriasis 1613470 L40.9 Pain of left hand 988299 3563 13293 M79.642 Pain of right hand 64598 41691 71768 M79.641 Asthma 232261115 J45.90 9 stable, continue with inhalers Acid reflux 613515048 K2 1.9 controlled [id number] Ankur Massey DO [facility] [address] [facility] [place], [employer] [place] [address] 12/03/2019 14:24:44 12/03/2019 15:04:40 Asthma 147778750 J45.909 stable Chronic uveitis 52257084 2 H20.12 pt has had painful, itchy, injected left eye intermitte ntly since May. has a hx of psoriasis which is being treated son has a hx of uveitis [id number] Ankur Massey DO [facility] [address] [facility] [place] [address] 04/02/2020 11:01:48 04/02/2020 11:47:29 Asthma 347440902 J45.909 stable Chronic sinusitis 210191 00 J32.9 recommende d OTC flonase as well to help open up nasal passages and sinus and reduce inflammati on along with a longer course of abx most likely started as allergies and developed into sinus infection [id number] Ankur Massey DO [facility] [address] [facility] [place] [address] 04/23/2020 14:23:31 04/23/2020 15:05:08 Chronic sinusitis 54648246 J32.[address] sinuses to see if there is any issue there Dyspnea 003302960 R06.00 will do an XR to r/o possible pulmonary involvemen t Chronic uveitis 81763587 2 H20.12 will work her up for any underlying conditions that may be contributi ng to her on going problems Fatigue 61736209 R53.83 could be just to the illness as she has been sick for almost a month now [id number] Ankur Massey DO [facility] [address] [facility] [place] [address] 07/13/2021 09:36:22 07/13/2021 10:29:03 Screening colonoscopy 285379570 Z12.11 will submit referral Insomnia 203654090 G47.0 9 will trial trazodone Asthma 960381985 J45.20 stable History of depression 16 0160110 Z86.59 switch medication given taper instructio ns Hyperlipidemia 25194229 E78.2 will trial low dose of pravastati n Anxiety 99443010 F41.1 will trial bupropion [id number] Ankur Massey DO [facility] [address] [facility] [address] [address] 07/12/2022 10:25:43 07/12/2022 13:31:01 Asthma 747064510 J45.20 worseningw ill switch to ventolin since pro air is off market Pain of le ft hip joint 5971125751 84453 M25.552 will trial a topicalwil l let me know if she would like to proceed with the MRI Candidiasis of skin 4988 3006 B37.2 will f/u with topical for flare ups [id number] Ankur Massey [facility] [address] [facility] [place] [address] 05/27/2023 11:39:06 05/27/2023 14:40:06 Asthma 709181458 J45.50 worseningw ill switch to ventolin since pro air is off market History of depression 16 2542146 Z86.59 switch medication given taper instructio ns Pain of le ft hip joint 6579498749 98992 M25.552 will trial a topicalwil l let me know if she would like to proceed with the MRI Hyperlipidemia 01114857 E78.2 [address] up with CT scan calcium score Screening colonoscopy 44 0592726 Z12.11 will submit referral again Insomnia 558219794 G47.0 9 no effect with trazodone Chronic back pain 328873 002 G89.29 will set up with plastic surgeon for consult with plastic surgeon [id number] Ankur Massey [facility] [address] [facility] [place] [address] 02/20/2024 13:29:51 02/20/2024 15:12:06 Hyperlipidemia 15600251 E78.2 no statins Asthma 428619528 J45.50 worseningw ill switch to ventolin since pro air is off market Body mass index 30+ - obesity 868526907 Z68.34 agreed to start on phentermin e for the weight loss since diet and exercise alone have not helped Depressive disorder 9449 9002 F32.0 will set up with venlafaxin e for the depression less weight gain Thoracic back pain 93391 8004 M54.6 agreed to PT referral for eval and treatment plan Depression screening 171 415907 Z13.[address] [id number] Ankur Massey [facility] [address] [facility] [place] [address] 03/30/2024 09:52:37 03/30/2024 15:00:34 Depression screening 952567643 Z13.[address] Asthma 427117983 J45.50 worseningw ill switch to ventolin since pro air is off market Irritable bowel syndrome 30069150 K58.2 will set up with engineering secretary Insomnia 501976641 G47.0 9 will continue ambien [id number] Ankur Massey [facility] [address] [facility] [address] [address] 06/01/2024 09:50:39 06/01/2024 10:28:03 Asthma 607458519 J45.50 stable Polycystic ovary syndrome of bilateral ovaries 826630762 E28.2 stable Body mass index 30+ - obesity 988094059 Z68.34 increased dose of phentermin e and added topimax for combo treatment Insomnia 690893402 G47.0 9 will continue ambienno dose adjustment [id number] [facility] [address] [facility] [place] [address] 08/06/2024 08:50:32 08/06/2024 11:21:52 Body mass index 30+ - obesity 820365717 Z68.34 increased dose of topimax for combo treatment Asthma 902919306 J45.50 stable Depressive disorder 3548 9007 F32.0 stable Exacerbati on of mild persistent asthma 828858144 J45.31 will start on short pred burst for residual inflammati on Hyperlipidemia 18879594 E78.2 no statins Thyroid nodule 317908044 E04.1 routine recheck [id number] Ankur Massey [facility] [address] [facility] [place] [address] 01/23/2025 10:11:55 01/23/2025 11:24:06 Body mass index 30+ - obesity 443258239 Z68.33 [id number] GERD, HLD, IFG, possibly sleep apnea [id number] Ankur Massey [facility] [address] [facility] [address] [address] 02/26/2025 10:42:20 02/26/2025 15:03:27 Depression screening 273669968 Z13.[address] Body mass index 30+ - obesity 812379547 Z68.33 GERD, HLD, IFG, possibly sleep apneaincre ase to the 5 mg and then 7.5 mg after the 4 weeksis losing inches from her waist, arms and legs that she has been noticing Slow trans it constipation 66037026 K59.01 8838 is holding on doing a CT scan w/wothinks after discussion she will call them back and go forward with the CT scan Uncomplicbubba alejandra severe persistent asthma 967867046 J45.50 6365156 stable [id number] Ankur Massey [facility] [address] [facility] [place] [address] 03/27/2025 10:19:36 03/27/2025 12:04:46 Polycystic ovary syndrome 252058170 E28.2 stable Slow trans it constipation 72365112 K59.01 8838 is holding on doing a CT scan w/wothinks after discussion she will call them back and go forward with the CT scan Depression screening 171 604282 Z13.[address] Body mass index 30+ - obesity 731528046 Z68.33 continue on the medication , increase the 7.5 mg Nausea 637495764 R11.0 will set up with refills [id number] Ankur Massey [facility] [address] [facility] [place] [address] 04/26/2025 14:09:19 04/26/2025 15:12:33 Depression screening 331467721 Z13.[address] Body mass index 30+ - obesity 035435919 Z68.33 continue on the medication , increase the 7.5 mg Insomnia 355560981 G47.0 9 will continue ambienno dose adjustment Mild depression 31951081 3 F32.A 893357 stable [id number] Ankur Massey [facility] [address] [facility] [place] [address] 06/04/2025 14:26:37 06/05/2025 09:30:37 Depression screening 095173151 Z13.[address] Body mass index 30+ - obesity 868453617 E66.9 1058339 stable Aversion t o food or drink 559421719 R63.39 5681978 Adult atte ntion deficit hyperactivity disorder 841620543 F90.9 694641 Nausea 147361811 R11.0 will set up with refills [id number] Ankur Garcia [facility] [address] [facility] [place] [address] 07/02/2025 14:00:27 07/02/2025 15:47:16 Depression screening 224642398 Z13.[address] Body mass index 30+ - obesity 105256358 E66.9 stable Adult atte ntion deficit hyperactivity disorder 755430619 F90.9 951115 Mild depression 93776719 3 F32.A stable [id number] [facility]ur [facility] [address] [facility] [place] [address] 07/10/2025 12:24:52 07/10/2025 15:01:28 Closed fracture of right ankle 8839989606 6221531 S82.891A 2920321 refillswit ch to ibu 800 mg TID Health Concerns Section Related Observation LastModified by Organization Detai ls LastModified Time None Recorded Concern Status LastModified by Organization Details LastModified Time None Recorded Advance Directives Directive None Recorded Payers Insurance Date Sequence Insurance Name Policy Number Policy Vaughn Covered Member ID Vaughn Member ID Guarantor Name 01/23/2025 1 [facility] [employer] [facility] [id number] Ree Gleason [id number] Ree Farah 07/10/2025 1 [facility] Ree Farah [id number] Ree Farah Notes Date Note Type Note [...] 7.5 mg the patient did see her CHIEF NURSE and GIhad questions about the GI doing [...] has been going well TJ GALINDO [address] [place], [address], [facility] 03/27/2025 11:17:37 5 text/html ROS as noted in the [...] f/u in a month TJ GALINDO [address] [place], [address], [facility] 04/26/2025 14:59:05 5 text/html ROS as noted in the [...] possibly? will seevs ADHD treatment TJ GALINDO [address] [place] [address], [place], [address], [facility] 06/04/2025 15:07:14 5 text/html ROS as noted in the HPI f/u weight The patient presents to the office for evaluation and assessment for concerns of ADHD symptoms DSM-5 Criteria of ADHD to help diagnosis adults: A. A persistent pattern of inattention and/or hyperactivity-impulsiv ity that interferes with functioning or development, as characterized by (1) and/or (2): 1 . Inattention Six (or more) of the following symptoms have persisted for at least six months to a degree that is inconsistent with developmental level and that negatively impacts directly on social and academic/occupational activities: -a. Fails to give close attention [...] that negatively impacts directly on social and academic/occupational activities: -a. Often fidgets with or taps [...] others are doing). B. Several inattentive or hyperactive-impulsive symptoms were present prior to age 11 years. C. Several inattentive or hyperactive-impulsive symptoms are present in two or more [...] current dose of zepbound TJ GALINDO [address] [facility], [place], [phone], [facility] 07/02/2025 14:40:16 5 text/html ROS as noted in the [...] pain meds at this time TJ GALINDO [address] [place] [address], [place], [phone], [facility] 07/10/2025 15:01:27 OBGyn Episode No OBEpisode recorded.
[2025-07-11 08:44] VITALS: BMI 28.3
== END 2025-07-11 09:42 | disposition home or self-care (01) ==
LOC: HO.HOS 08:17
PROVIDERS: PCP Internal Medicine; Visit Provider Physician Assistant
DX: S82.851A Displaced trimalleolar fracture of right lower leg, initial encounter for closed fracture (principal)
CPT/HCPCS: 27816; 99204

== ENCOUNTER → 2025-07-11 08:25 | Outpatient (BNV) | payer OTHER, SELFPAY | PROVIDERS: PCP Internal Medicine; Visit Provider Radiology Vascular & Interventional Radiology | DX: S82.841A Displaced bimalleolar fracture of right lower leg, initial encounter for closed fracture (principal) | CPT/HCPCS: 73610 ==

== ENCOUNTER 2025-07-17 10:43 | Day surgery (SDC) | payer OTHER, SELFPAY ==
--- NOTE | 2025-07-15 10:04 | HO.ANESPROP2 ---
Documented by User: Inocencia Beckwith NP 07/15/25 10:05 HPI - Anesthesia Eval Consult details Narrative: 55yo F for Right Ankle Fracture ORIF Anesthesia Pre-Procedure Meds Is the patient on any of the following meds?: GLP1/DPP4 PMFSH Active Problems Active Problems: All Active Problems Endometriosis of abdomen (Acute) Past Medical History Medical History IBS (irritable colon syndrome) Psoriatic arthritis Endometriosis of abdomen Arthritis High cholesterol Asthma Family History Family history of problems with anesthesia: No Surgical History Surgical History Hx of section Hx of adenoidectomy Hx of tonsillectomy Hx laparoscopic cholecystectomy Hx of hysterectomy Hx of colonoscopy History of esophagogastroduodenoscopy (EGD) History of Problems with Anesthesia: No Social History Social History Household Members: Family Household Members Other:: two adult sons Housing: House Are you a primary skin care therapist to a significant other at home: No Do you presently have visiting nurse or other home services: No Patient Tobacco Use Status: Never used Tobacco Use of substances other than those prescribed or required for medical reasons: No Currently Displaying Signs/Symptoms of Drug Intoxication Withdrawal: No Have you been hit, kicked, punched, or otherwise hurt by someone within the past year? 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 100 mcg-umeclid 1 ea inhalation DAILY 05/29/24 07/17/25 07/17/25 08:00 History 62.5 mcg-vilant 25 mcg inhalat.powder (Trelegy Ellipta) guselkumab 100 mg/mL subcutaneous 100 mg subcut Q3M 06/12/24 07/15/25 Unknown History auto-injector (Tremfya) zolpidem 5 mg tablet 10 mg PO BEDTIME 06/12/24 07/15/25 Unknown History tirzepatide (weight loss) 12.5 12.5 mg subcut QWEEK 07/11/25 07/15/25 07/10/25 06:00 History mg/0.5 mL subcutaneous pen injector (Zepbound) ondansetron HCl 8 mg tablet 8 mg PO BID PRN Nausea 07/15/25 07/15/25 Unknown History Assessment and Plan Assessment Anesthesia Assessment: Chart Reviewed Final Anesthetic Review Family History of Problems with Anesthesia: No History of Problems with Anesthesia: No Documented by User: Tamela Pierce MD 07/17/25 12:38 PMFSH Past Medical History Medical History IBS (irritable colon syndrome) Psoriatic arthritis Endometriosis of abdomen Arthritis High cholesterol Asthma Surgical History Surgical History Hx of section Hx of adenoidectomy Hx of tonsillectomy Hx laparoscopic cholecystectomy Hx of hysterectomy Hx of colonoscopy History of esophagogastroduodenoscopy (EGD) Social History Social History Household Members: Family Household Members Other:: two adult sons Housing: House Are you a primary skin care therapist to a significant other at home: No Do you presently have visiting nurse or other home services: No Patient Tobacco Use Status: Never used Tobacco Use of substances other than those prescribed or required for medical reasons: No Currently Displaying Signs/Symptoms of Drug Intoxication Withdrawal: No Have you been hit, kicked, punched, or otherwise hurt by someone within the past year? 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 100 mcg-umeclid 1 ea inhalation DAILY 05/29/24 07/17/25 07/17/25 08:00 History 62.5 mcg-vilant 25 mcg inhalat.powder (Trelegy Ellipta) guselkumab 100 mg/mL subcutaneous 100 mg subcut Q3M 06/12/24 07/15/25 Unknown History auto-injector (Tremfya) zolpidem 5 mg tablet 10 mg PO BEDTIME 06/12/24 07/15/25 Unknown History tirzepatide (weight loss) 12.5 12.5 mg subcut QWEEK 07/11/25 07/15/25 07/10/25 06:00 History mg/0.5 mL subcutaneous pen injector (Zepbound) ondansetron HCl 8 mg tablet 8 mg PO BID PRN Nausea 07/15/25 07/15/25 Unknown History Exam Airway Mallampati Class: II TM Dist: >3cm Neck ROM: Full Loose/Missing/Broken Teeth: No Heart: RRR Lungs: CTA Assessment and Plan Assessment Anesthesia Assessment: Anesthesia Plan Discussed Final Anesthetic Review NPO: Yes ASA Class: II Final Preanesthetic Review: Meds/Allgs Chart Reviewed, Consent Obtained/Reviewed and Anes Risks/Benef Reviewed Patient Risk: Low Procedure Risk: Low Anesthetic Plan Anesthetic Plan: GA and Regional Block Disposition: Standard PACU
[2025-07-15 13:34] VITALS: BMI 28.3
[2025-07-17] VITALS (9 sets, daily range): BP systolic 101–141; BP diastolic 42–79; PULSE 81–109; RESP 12–19; TEMP 36.2–36.6; O2SAT 96–99; BMI 31.4
--- NOTE | ~2025-07-17 | FL_ITS ---
EXAMINATION: FLUOROSCOPY GUIDANCE FOR NEEDLE PLACEMENT CLINICAL INFORMATION: orif right ankle COMPARISON: Previous x-rays June 2025 TECHNIQUE: Fluoroscopic guidance provided for ORIF of right ankle fracture FINDINGS: There is a new side plate and screws transfixing the distal fibular/lateral malleolar fracture with anatomic alignment. There are 2 screws transfixing the medial malleolar fracture with anatomic alignment. Question minimally displaced posterior malleolar fracture on the lateral view. Normal ankle mortise. FLUOROSCOPY TIME: 25 seconds. 3 submitted images. DOSE AREA PRODUCT: 126 uGy-m2 (microgray-meter squared) FL/FL guidance in OR IMPRESSION: Fluoroscopic guidance for ORIF of right ankle fracture. Electronically signed by: Tamela Gomez MD 07/17/2025 03:26 PM EDT
--- NOTE | 2025-07-17 11:03 | MHC.SHP ---
Pre-Procedural Eval Section A - 24 Hr Update-Section A only Date of Service: 07/17/25 The patient is an INPATIENT: No Changes since office visit: No Cold of Flu in the past 2 weeks, No New Medical Problems, No Changes in Medication and No Patient answered all questions The patient has been examined within 24 hours of the surgical procedure. The History & Physical has been completed within 30 days and I have reviewed it.: Yes Section B - Complete if H&P > 30 days Chief Complaint: Displaced trimalleolar fracture of right lower leg Allergies: Allergies Allergy/AdvReac Type Severity Reaction Status Date / Time No Known Allergies Allergy Verified 07/09/25 21:49 Plan I have reviewed the history and physical and performed a pertinent physical examination on my patient. No changes have occurred unless specified. Time Spent With Patient Time: Total time managing care of this patient today ____ minutes.
[2025-07-17] MEDS: Lactated Ringers 1,000 ML 100 ML IVCONT ×2 (11:17→15:38)
--- NOTE | 2025-07-17 14:28 | PM.OP ---
Brief Operative Note Date of Service: 07/17/25 Pre-op diagnosis: Right bimalleolar ankle fracture Post-op diagnosis: same Procedure: ORIF right ankle bimalleolar fracture Implants: Kandy Pangea 4 hole lateral plate and 2 26mm 4.0 cannulated screws Surgeon: David Wray MD Anesthesia: GETA Was an Manufacturing Inspector used for this Procedure?: Yes Manufacturing Inspector: Ana Shelley Estimated blood loss (mL): 25 Tourniquet time (min): 75 IV fluids (mL): 1,000 Pathology: none sent Condition: stable Disposition: PACU
--- NOTE | 2025-07-17 14:32 | P.OP_ITS ---
Operative Note Operative Note Date of Service: 07/17/25 Narrative: Date of Service: 07/17/25 Pre-op diagnosis: Right bimalleolar ankle fracture Post-op diagnosis: same Procedure: ORIF right ankle bimalleolar fracture Implants: Kandy Pangea 4 hole lateral plate and 2 26mm 4.0 cannulated screws Surgeon: David Wray MD Anesthesia: GETA Was an Quality Audit Representative used for this Procedure?: Yes Quality Audit Representative: Ana Shelley Estimated blood loss (mL): 25 Tourniquet time (min): 75 IV fluids (mL): 1,000 Pathology: none sent Condition: stable Disposition: PACU Procedure in detail: Patient was brought to the operating room and placed supine on the operative table. All bony prominences were well padded and a time-out was called to identify proper site proper procedure proper surgeon. IV antibiotics per weight were administered. I began by exsanguinating limb is slightly tourniquet to 300 mm Hg. I then made a standard posterolateral incision over the fibula. Full- thickness flaps were taken down to the fibular shaft and distal fibula. The fracture was identified and cleaned with a combination of curette, rongeur and irrigation. A lobster claw was used to provisionally reduce the distal and transverse fracture and a 4 hole distal fibular Pangea lateral locking plate was applied using standard AO technique. Biplanar fluoroscopy was used to confirm hardware position and fracture reduction. Once I was satisfied that both of these were acceptable I irrigated copiously and turned my attention to the medial side. The transverse medial malleolar fracture was identified after skin incision. Full-thickness skin flaps were developed and, with a sharp tenaculum, the fracture was reduced. 2 threaded K-wires were then placed from distal to proximal and perpendicular to the fracture. Biplanar fluoroscopy was used to confirm positioning and then they were overdrilled and 2 36 mm 4.0 partially- threaded cannulated cancellous screws were placed across the fracture. I was satisfied with the position and the fracture reduction based on biplanar fluoroscopy. This syndesmosis was tested using external rotation test and was found to be stable. Therefore all instrumentation was removed and copious irrigation was performed. Absorbable suture and chanda were used for closure and the patient was placed into sterile dressings and a well-padded posterior splint. Tourniquet was let down and the patient was extubated brought to recovery room in stable condition there were no known complications.
[2025-07-17] MEDS: oxyCODONE HCl Immed Release 5 MG TABLET PO ×2 (14:50→17:32)
--- NOTE | 2025-07-17 15:28 | PHA.MEDREC ---
Pharmacy Consult ? Medication Reconciliation Pharmacy has completed the medication reconciliation. Reviewed med rec done by nursing
[2025-07-17] MEDS: 0.9 % Sodium Chloride Flush 3 ML SYRINGE IVFLUSH (15:40)
[2025-07-17] MEDS: oxyCODONE HCl ER 10 MG TAB.ER.12H PO (20:55)
[2025-07-18] VITALS: BP 121/70; PULSE 98; RESP 18; TEMP 36.4; O2SAT 98
[2025-07-18] MEDS: oxyCODONE HCl Immed Release 5 MG TABLET PO (00:08)
[2025-07-18] MEDS: Lactated Ringers 1,000 ML 100 ML IVCONT (01:07)
[2025-07-18 03:05] VITALS: BP 102/58; PULSE 83; RESP 18; TEMP 36.4; O2SAT 95
[2025-07-18 03:07] VITALS: BP 102/58; PULSE 83; RESP 18; TEMP 36.4; O2SAT 95
[2025-07-18 06:49] LABS: Hematocrit 26.4 % (37.0-47.0); Hemoglobin 8.8 g/dl (12.0-16.0); Imm Gran Abs Auto 0.04 X10*3/uL (0.00-0.03); Imm Gran Pct Auto 0.4 % (0.0-0.4); Lymphocytes Absolute Auto 0.8 X10*3/uL (1.2-4.9); MANUAL DIFF FLAG NO; Mean Corpuscular HGB Conc 33.3 g/dl (31.0-35.0); Mean Corpuscular Hemoglobin 31.2 pg (27.0-33.0); Mean Corpuscular Volume 93.6 fL (80.0-98.0); NRBC Abs Auto 0.000 X10*3/uL (0.0-0.012); NRBC Pct Auto 0.0 /100WBC (0.0-0.2); Platelet Count 255 X10*3/uL (160-400); Red Blood Count 2.82 X10*6/uL (4.20-5.50); White Blood Count 9.3 X10*3/uL (4.8-10.8)
[2025-07-18 07:02] LABS: Anion Gap 14 (12-20); Blood Urea Nitrogen 9 mg/dL (9-16); Calcium 8.4 mg/dL (8.4-10.2); Carbon Dioxide 23 mmol/L (22-29); Chloride 107 mmol/L (96-108); Creatinine Clr Calc Pharmacy 144.2; Estimated Glomerular Filt Rate > 60; Potassium 4.1 mmol/L (3.3-5.1); Sodium 140 mmol/L (135-145)
[2025-07-18] MEDS: oxyCODONE HCl ER 10 MG TAB.ER.12H PO (07:13)
[2025-07-18] MEDS: Flu Vacc TS2025-26(6mo up)/PF 0.5 ML SYRINGE IM (07:14)
[2025-07-18 07:59] VITALS: BP 100/62; PULSE 87; RESP 20; TEMP 36.1; O2SAT 94
[2025-07-18] MEDS: Fluticasone/Umeclidinium/Vilanterol 100/62.5/25 BLST.W.DEV 1 PUFF INHALE (08:11)
[2025-07-18 08:13] VITALS: PULSE 85; RESP 18; O2SAT 96
--- NOTE | 2025-07-18 08:24 | HO.POSTANES ---
Post Anesthesia Evaluation Post Anesthesia Evaluation Date of Service: 07/18/25 Vital Signs: Vital Signs Temp Pulse Resp BP Pulse Ox O2 Del Method 07/18/25 08:13 85 18 07/18/25 07:59 96.9 F 87 20 100/62 94 Room Air 07/18/25 03:07 97.5 F 83 18 102/58 L 95 Room Air 07/18/25 03:05 97.5 F 83 18 102/58 L 95 Room Air 07/18/25 00:00 97.6 F 98 18 121/70 98 Room Air Anesthesia: Regional and General Mental Status: Awake Pain Control: Satisfactory Nausea/Vomiting: None Hydration: Adequate Anesthesia-Related Issues: No Anes. Related Issues
--- NOTE | 2025-07-18 09:06 | P.DS_ITS ---
DS: Providers Provider Date of Service: 07/17/25 Date of discharge: 07/18/25 Primary care physician: Ankur Massey MD DS: Summary Hospital Course Hospital Course: The patient underwent a successful ORIF of right ankle on 07/17/2025, was transferred to PACU and then to the floor to recover. During their stay, their vitals were stable, afebrile at 96.9. Labs were unremarkable, H/H 8.8/26.4. They also received Physical Therapy services twice a day. Physical therapy should include nonweightbearing on the right lower extremity Prior to discharge, splint on right ankle was clean, dry, intact. Splint should remain clean, dry, intact until follow-up, if the splint gets wet, dirty, or damaged, patient should call our office for splint change The plan is to be discharged Status at Discharge Cognitive/behavioral status at discharge: Stable for discharge Time Attestation Discharge Coordination Time (in mins): 30 Quality: Safe Use of Opioids Does Pt have an Active Cancer Diagnosis on the Problem List?: No Quality: Stroke Does the patient have a stroke diagnosis?: No Physical Exam Vital Signs: Vital Signs: Last Vital Signs Temp 96.9 F 07/18/25 07:59 Pulse 85 07/18/25 08:13 Resp 18 07/18/25 08:13 BP 100/62 07/18/25 07:59 Pulse Ox 94 07/18/25 07:59 O2 Del Method Room Air 07/18/25 07:59 BMI result Body Mass Index 31.4 Extrem: Other: Splint on right foot and ankle clean, dry, intact No evidence of surrounding erythema, ecchymosis No evidence of infection Patient is able to flex and extend the digits of the left foot minimally due to block Compartments soft, nontender Distal sensation somewhat diminished due to block Capillary refill brisk DS: Data Data Completed and Pending Labs on day of discharge: Laboratory Results - last 24 hr 07/18/25 05:43 WBC 9.3 RBC 2.82 L D Hgb 8.8 L D Hct 26.4 L D MCV 93.6 MCH 31.2 MCHC 33.3 RDW 12.4 Plt Count 255 MPV 10.4 Immature Gran % (Auto) 0.4 Neut % (Auto) 86.6 H Lymph % (Auto) 8.1 L [place] % (Auto) 4.8 Eos % (Auto) 0.0 Baso % (Auto) 0.1 Lymph # (Auto) 0.8 L [place] # (Auto) 0.5 Eos # (Auto) 0.0 Baso # (Auto) 0.0 Abs Immat Gran (auto) 0.04 H Absolute Neuts (auto) 8.0 Absolute Nucleated RBC 0.000 Nucleated RBC % (auto) 0.0 Sodium 140 Potassium 4.1 Chloride 107 Carbon Dioxide 23 Anion Gap 14 BUN 9 Creatinine 0.47 L Estim Creat Clear Calc 144.2 Estimated GFR > 60 Fasting Glucose 109 H Calcium 8.4 D Discharge Plan Discharge Patient Disposition: Home, Self-Care Referrals: Ana Shelley PA-C [Physician Field Hockey And Lacrosse Coach, Orthopedics] - 07/25/25 2:30 pm Discharge Medications: New oxycodone 5 mg tablet 5 mg PO Q4H PRN (Reason: pain) 7 Days Qty: 42 0RF Rx Instructions: Partial Fill upon patient request. Continued Linzess 145 mcg capsule 145 mcg PO DAILY Qty: 30 2RF Trelegy Ellipta 100-62.5-25 mcg blister with device 1 ea INHALATION DAILY gabapentin 300 mg capsule 300 mg PO TID PRN (Reason: pain) Qty: 21 0RF albuterol sulfate [Ventolin HFA] 90 mcg/actuation HFA aerosol inhaler 2 puff inhalation Q6H PRN (Reason: asthma) montelukast 10 mg tablet 10 mg PO DAILY docusate sodium 100 mg tablet 100 mg PO DAILY Zepbound 12.5 mg/0.5 mL pen injector 12.5 mg subcut QWEEK Rx Instructions: takes on wednesdays zolpidem 5 mg tablet 10 mg PO BEDTIME Tremfya 100 mg/mL auto-injector 100 mg subcut Q3M Discontinued acetaminophen 500 mg capsule 1,000 mg PO Q6H 5 Days Qty: 20 0RF oxycodone 5 mg tablet 5 mg PO Q6H PRN (Reason: pain) Qty: 20 0RF Rx Instructions: Partial Fill upon patient request. No Action ondansetron HCl 8 mg tablet 8 mg PO BID PRN (Reason: Nausea) Discharge Orders: Discharge Order (Routine); Ordered 07/18/25 Ordered By: Donis Aquino Diet: Advance to usual diet Activity on Discharge: Use Splints or Immobilizers Activity Restrictions/Additional Instructions: 1. Activity and Weightbearing * Do NOT bear weight on the operative leg until cleared. * Use crutches or a walker * Keep your leg elevated above heart level as much as possible for the first 5-7 days to reduce swelling. * Avoid prolonged standing or sitting with the leg hanging down. * Move your toes and non-injured joints often to maintain circulation. 2. Immobilization and Dressing * Keep the splint clean and dry at all times. * Do not remove the splint or dressings. * If the splint feels excessively tight, numbness develops, or your toes become pale/blue and cold, loosen the valerie wrap if possible and contact your surgeon immediately. * Call orthopedics if the splint becomes wet. 3. Wound Care * Keep the dressing/splint intact and dry until your follow-up visit or until instructed to change it. * Do not soak the incision (no baths, pools, or hot tubs) until the incision is fully healed. * Do not shower. 4. Pain Management * Take prescribed pain medications as directed. * You may use Tylenol or NSAIDs for mild pain. * Ice may be applied over the splint (20 minutes on, 20 minutes off) several times a day to help with pain and swelling ? make sure the splint stays dry. * Elevate on three pillows above heart level as much as possible. 5. Diet and Constipation Prevention * Resume your regular diet as tolerated. * Pain medications can cause constipation ? increase fluids, fiber, and activity as tolerated. * You may use [id number] stool softeners (Colace, Senna, Miralax) if needed. 6. Signs to Contact Your Surgeon Call your surgeon or go to the emergency room if you experience: * Fever > 101?F (38.3?C) * Excessive swelling, redness, or drainage from incision site(s) * Numbness, tingling, or inability to move your toes * Calf pain, swelling, or shortness of breath (possible blood clot) 7. Follow-Up * Your first postoperative appointment is typically 10?14 days after surgery for wound check and possible suture/staple removal and cast placement. Print Language: Tajik
--- NOTE | 2025-07-18 09:25 | W.MHC.F2F ---
Service Date Service Date: 07/18/25 Encounter Date of encounter: 07/18/25 Encounter: 07/18/2025 Reasons for Services Signs and symptoms assessed: Status post right ankle ORIF Reason for physical therapy: home safety and mobility and ADL training Reason for occupational therapy: home safety and mobility and gait/transfer training MD Overseeing Care: David Wray Homebound: Leaving the home is medically contraindicated at this time without the asist of a device and/or another person due th the listed conditions above and below. Reason homebound: unsteady gait / fall risk, non-weight bearing and unable to drive Certification: Based on the above findings, I certify that this patient is confined to the home and needs intermittent physical therapy and/or speech therapy, or continues to need occupational therapy. The patient is under my care, and I have initiated the establishment of the plan of care. The patient will be followed by a physician who will periodically review the plan of care. Time Spent With Patient Time: Total time managing care of this patient today ____ minutes.
--- NOTE | 2025-07-18 09:47 | MHC.CM.PN ---
Patient lives at home w/ 2 adult sons. Independent w/ all mobility & care prior to injury. Now is using w/c & rolling walker. Sons assist PRN and someone is always home w/ patient. PCP Ankur Massey No HCP. CM provided education and offered assistance. Patient declined. DP: PT rec home w/ services. No preference to agency. [facility] has accepted. Patient medically cleared for dc. Son at bedside to transport.
== END 2025-07-18 09:46 | disposition home health service (06) ==
LOC: HO.SSS 14:48 → HO.S3 14:52
PROVIDERS: Physician Assistant; PCP Internal Medicine; Visit Provider Orthopaedic Surgery
PROC: (CPT 27814; principal; 2025-07-17 14:00)
DX: S82.841A Displaced bimalleolar fracture of right lower leg, initial encounter for closed fracture (principal); W01.0XXA Fall on same level from slipping, tripping and stumbling without subsequent striking against object, initial encounter; Y93.01 Activity, walking, marching and hiking; Y92.9 Unspecified place or not applicable; Y99.9 Unspecified external cause status; Z23 Encounter for immunization; J45.909 Unspecified asthma, uncomplicated; E78.00 Pure hypercholesterolemia, unspecified; L40.50 Arthropathic psoriasis, unspecified; L40.9 Psoriasis, unspecified; Z79.51 Long term (current) use of inhaled steroids; Z79.85 Long-term (current) use of injectable non-insulin antidiabetic drugs; Z79.899 Other long term (current) drug therapy; Z90.49 Acquired absence of other specified parts of digestive tract; Z90.710 Acquired absence of both cervix and uterus; Z98.890 Other specified postprocedural states
CPT/HCPCS: 27814; 36415; 80048; 85025; 90656; 94640; 97162; C1713; J0131; J0665; J0690; J1100; J1171; J2003; J2004; J2250; J2405; J2704; J3010; J7120

== ENCOUNTER → 2025-07-17 10:43 | Outpatient (BNV) | payer OTHER, SELFPAY | PROVIDERS: PCP Internal Medicine; Visit Provider Orthopaedic Surgery | DX: S82.851A Displaced trimalleolar fracture of right lower leg, initial encounter for closed fracture (principal) | CPT/HCPCS: 27814; 99024; G0180 ==

== ENCOUNTER 2025-07-25 14:15 | Outpatient (AMB) | payer OTHER, SELFPAY ==
--- NOTE | 2025-07-25 14:29 | A.OFFVIS_ITS ---
Intake Visit Reasons: PO RT ankle ORIF 07/17/25 NE Intake Note: Ree is a 55 year old female who presents today for a post operative appointment status post right ankle ORIF done on 07/17/25 Dr. Wray. Patient reports her pain is a 4 out of 10 on the pain scale. Allergies No Known Allergies Allergy (Verified 07/09/25 21:49) HPI HPI PO RT ankle ORIF 07/17/25 NE: Details: Ms. Farah is a 55-year-old female who presents to the office today for postoperative wound check status post right ankle ORIF performed on 07/17/[address] Wray. Patient states that she did fall a few days ago but did not injure or land on the right ankle. She did not experience any increase in pain. She reports that when her foot is hanging in a downward position she does have a lot of pain which is attributed to swelling. She is taking gabapentin as needed for pain as well as the oxycodone that was prescribed. [facility] Medical History IBS (irritable colon syndrome) Psoriatic arthritis Endometriosis of abdomen Arthritis High cholesterol Asthma Surgical History Hx of section Hx of adenoidectomy Hx of tonsillectomy Hx laparoscopic cholecystectomy Hx of hysterectomy Hx of colonoscopy History of esophagogastroduodenoscopy (EGD) Social History Household Members: Family Household Members Other:: two adult sons Housing: House Are you a primary lawn caretaker to a significant other at home: No Do you presently have visiting nurse or other home services: No Patient Tobacco Use Status: Never used Tobacco service: No 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 Splint was removed in the office today for wound check. Incision sites are clean dry and intact. Steri-Strips intact. No surrounding erythema or drainage. No signs of infection. Prior fracture blisters are healing well with no signs of infection. Able to slightly dorsiflex and plantar flex. Sensation is intact. Pedal pulse intact. Psych Appearance: grossly normal Mental Status: mental status grossly normal Attitude: cooperative Office Procedures Casting/Splints 23559-Gzilj Leg splint application Procedure code (CPT) selection complete Assessment & Plan Assessment & Plan (1) Status post ORIF of fracture of ankle: Code(s): Z98.890 - Other specified postprocedural states; Z87.81 - Personal history of (healed) traumatic fracture Category: Surgical Plan Ms. Farah is a 55-year-old female who presents to the office today for postoperative wound check status post right ankle ORIF performed on 07/17/[address] Wray. Patient states that she did fall a few days ago but did not injure or land on the right ankle. She did not experience any increase in pain. She reports that when her foot is hanging in a downward position she does have a lot of pain which is attributed to swelling. She is taking gabapentin as needed for pain as well as the oxycodone that was prescribed. While in the office today, a wound check was performed and there are no concerns for infection at this time. The incision sites are healing well and the prior fracture blisters are resolving without complication. She was placed back into a posterior splint and will follow up in 1 week for an additional wound check and at that time it is likely she will be transitioned to a short-leg cast. Patient will remain nonweightbearing. She will follow up in 1 week with x-rays, sooner if needed Coding Level of Care Code Global (96547) Diagnoses Status post ORIF of fracture of ankle Z98.890; Z87.81 CPT Codes Splint - CPT: 44760-Xwugo Leg splint application ([id number])
--- OUTSIDE RECORDS SUMMARY | 2025-07-25 17:24 | XMS_ITS | Clinical Summary ---
Author Organization [facility] Address [address] [place] [id number] Phone Care Team Providers Care Senior Sales Director Name Role Phone Ankur Massey DO Primary Care Provider [phone] Encounters Date Type Department Care Team Description 07/18/2025 Orders Only [facility] [address] [place], [place] [phone] Homehealth, Interface ProviderMD from Last 3 Months Social History Tobacco Use Types Packs/Day Years Used Date Smoking Tobacco: Never Assessed Education Answer Date Recorded Are you interested in more education? Not on viry e 07/18/2025 Are you concerned about learning? Not on file 07/18/2025 No 07/18/2025 No 07/18/2025 Digital Access Answer Date Recorded No 07/18/2025 No 07/18/2025 Reliable internet access at home? Not on file 07/18/2025 Device with a working camera? Not on file Comments Unknown Sex and Gender Information Value Date Recorded Sex Assigned at Not on file Legal Sex Female 10:02 AM EDT Gender Identity Not on file Sexual Orientation Not on file Plan of Treatment Not on file Medical Devices Not on file [facility] E[facility] POS [facility]PO [facility] POS [facility]PO [facility] POS [facility]PO [facility] POS EPO Care Teams Senior Sales Director Relationship Specialty Start Date End Date Ankur Massey DO [address] [place] [id number] PCP - General 07/18/25 Additional Source Comments The information contained in this document represents components of the legal health record. It is not the complete legal health record.[facility]
--- OUTSIDE RECORDS SUMMARY | 2025-07-25 17:25 | XMS_ITS | Data Portability ---
Author Organization [facility], Telehealth Patient Home Address [address] [place] [address] Assessment No assessment recorded. Plan of Treatment Reminders Order Date Submit Date Provider Last Modified By Organization Details Last Modified Time Details Appointments FOLLOW UP 15 2024 10:30A M TJ GALINDO Not available Not available Not available Lab None recorded. Referral None recorded. Procedures None recorded. Surgeries None recorded. Imaging None recorded. Medication Orders oxycodone 5 mg tablet 2024 [place] [facility], [address] [place], [address], 07/10/2025 14:58:20 buspirone 10 mg tablet 2024 [place] [facility], [address] [place], [address], 07/02/2025 14:37:55 dextroamp hetamine- amphetami ne 10 mg tablet 2024 [place] [facility], [address] [place], [address], 07/23/2025 05:01:46 Zepbound 12.5 mg/0.5 mL subcutane ous pen injector 2024 [place] [facility], [address] [place], [address], 07/02/2025 14:27:09 ondansetr on HCl 8 mg tablet 2024 025 [place] [facility], [address] [place], [address], 07/02/2025 14:28:07 Zepbound 12.5 mg/0.5 mL subcutane ous pen injector 2024 025 [place] [facility], [address] [place], [address], 06/04/2025 15:01:03 zolpidem 5 mg tablet 2024 025 [place] [facility], [address] [place], [address], 04/26/2025 14:47:51 buspirone 10 mg tablet 2024 025 [place] [facility], [address] [place], [address], 04/26/2025 14:55:29 Zepbound 10 mg/0.5 mL subcutane ous pen injector 2024 025 [place] [facility], [address] [place], [address], 06/04/2025 15:00:32 ondansetr on HCl 8 mg tablet 2024 025 [facility], [address] [place], [address], 07/02/2025 14:27:49 Zepbound 7.5 mg/0.5 mL subcutane ous pen injector 2024 025 [place] [facility], [address] [place], [address], 06/04/2025 14:36:04 Patient TargetsNo targets recorded. Patient InstructionsNo instructions recorded. Reason for Referral None Reported. Results Created Date Observation Date Name Description Value Unit Range Abnormal Flag Note LastModifiedBy Organization Detail LastModifiedTime 07/08/2007/08/2025 XR, knee No observ ation record ed. [email or web address] [facility] (Medical Records) [address] [facility] [place], [address], 07/08/2025 13:28:46 07/08/2007/08/2025 XR, ankle No observ ation record ed. [email or web address] [facility] (Medical Records) [address] [facility] [place], [address], 07/08/2025 13:28:57 07/08/2007/08/2025 XR, ankle No observ ation record ed. [email or web address] [facility] (Medical Records) [address] [facility] [place] [place], [address], 07/08/2025 13:29:09 07/12/2007/11/2025 XR, ankle No observ ation record ed. [email or web address] [address] [place], [address], 07/12/2025 10:37:53 07/17/2007/17/2025 fluor oscop y (PROC ) No observ ation record ed. [address] (Medical Records) [address] [facility] [place] [place], [address], 07/17/2025 16:25:49 07/17/2007/17/2025 fluor oscop y (PROC ) No observ ation record ed. [address] (Medical Records) [address] [facility] [place] [place], [address], 07/17/2025 16:26:13 Result Notes None recorded. Problems Name Problem SNOMED Code Status Onset Date Resolution Date Notes Provider Name and Address Organization Details Recorded Time Asthma 248203770 Active 2017 Vannesa valdivia [facility] 8 14:21:55 History of depressio n 629923333 [facility] 2017 [facility] 14:22:01 Acid reflux 447731416 Active 2017 [facility] 14:22:15 Psoriasis 1007809 Active 2017 Juana Quinonez NP, S [address] [place] [address], [address], [facility] 8 11:45:40 Thyroid nodule 115168403 Active 2017 Juana Quinonez NP, S [address] [place] [address], [address], [facility] 8 11:45:50 Pain of left hip joint 082682928316 100 Active 2021 TJ GALINDO [address] [place] [address], [address], [facility] 2 10:39:06 Candidias is of skin 22023738 Active 2021 TJ GALINDO [address] [place] [address], [address], [facility] 2 10:40:16 Polycysti c ovary syndrome 675882104 Active 2022 TJ GALINDO [address] [place] [address], [address], [facility] 3 12:10:08 Hyperlipi demia 16009351 Active 2022 TJ GALINDO [address] [place] [address], [address], [facility] 3 12:10:23 Insomnia 536512070 Active 2022 TJ GALINDO [address] [place] [address], [address], [facility] 3 12:17:53 Chronic back pain 718058082 Active 2022 TJ GALINDO [address] [place] [address], [address], [facility] 3 12:20:10 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 296057477 Active 2022 TJ GALINDO [address] [place] [address], [address], [facility] 3 14:05:44 Depressiv e disorder 60251688 Active 2023 TJ GALINDO [address] [place] [address], [address], [facility] 4 14:09:02 Thoracic back pain 393153280 Active 2023 TJ GALINDO [address] [place] [address], [address], [facility] 4 14:11:40 Irritable bowel syndrome 65766168 Active 2023 TJ GALINDO [address] [place] [address], [address], [facility] 4 10:13:52 Exacerbat ion of mild persisten t asthma 949121582 Active 2023 TJ GALINDO [address] [place] [address], [address], [facility] 4 10:43:51 Nausea 406960252 Active 2024 Ankur Massey DO [address] [place] [address], [address], [facility] 5 22:59:03 Slow transit constipat ion 08238893 Active 2024 TJ GALINDO [address] [place] [address], [address], [facility] 5 11:28:06 Uncomplic ated severe persisten t asthma 114770930 Active 2024 TJ GALINDO [address] [place] [address], [address], [facility] 5 11:28:29 Mild depressio n 261736825 Active 2024 TJ GALINDO [address] [place] [address], [address], [facility] 14:52:09 Body mass index 30+ - obesity 629980949 Active 2024 TJ GALINDO [address] [place] [address], [address], [facility] 5 14:41:22 Adult attention deficit hyperacti vity disorder 028163149 Active 2024 TJ GALINDO [address] [place] [address], [address], [facility] 14:53:06 Aversion to food or drink 829149312 Active 2024 TJ GALINDO [address] [place] [address], [address], [facility] 5 15:01:49 Closed fracture of right ankle 851756597381 58160 Active 2024 TJ GALINDO [address] [place] [address], [address], [facility] 14:56:55 Problem Notes None recorded. Procedures Surgical History Date Name Laterality Status Provider Name and Address Organization Details Recorded Time 995 Cholecystectomy completed Juana Quinonez NP, S [address] [place] [address], [address], [facility] 12/29/2017 11:47:57 985 Remove tonsils and adenoids completed Juana Quinonez NP, S [address] [place] [address], [address], [facility] 12/29/2017 11:47:40 Imaging Results None recorded. Procedure Notes None recorded. Medical Equipment None Reported. Allergies Allergen ID Allergen Name Allergen Category Reaction Reaction Severity Criticality Documentation Date Start Date Code Code System Note Provider Name and Address Organization Details Recorded Time 1861 Product containin g 3-hydroxy -3-methyl glutaryl- coenzyme A reductase inhibitor (product) medicatio n Not available Not available Not available 08/06/2024 36558 009 TJ MADSEN [address] [place], [address], [facility] 10:49:35 Medications Name Sig Start [...] TABLET BY MOUTH TWICE A DAY NEEDED active Not Available Not Available No t Available prednisone 20 mg tablet TAKE 2 TABLETS DAILY FOR 3 DAYS THEN TAKE 1 TABLET DAILY FOR 3 DAYS. 03/27 completed Not Available Not Available Not Available dextroamphe tamine-amph etamine 10 mg tablet Take 1 tablet every day by oral route for 14 days. 07/23 completed Not Available Not Available Not Available niacin ER 500 mg tablet,exte nded [...] Available Not Available gabapentin 300 mg capsule Take 1 capsule 3 times a day by oral route for 30 days. 2024 active Not Available Not Available Not Avai lable diclofenac sodium 75 mg tablet,ayan yed release [...] Available Not Available Not Available amoxicillin 875 mg-macku m clavulanate 125 mg tablet Take 1 tablet every 12 hours by oral route for 10 days. 04/23 completed Not Available Not Available Not Available oxycodone 5 mg tablet TAKE ONE TABLET BY MOUTH EVERY 6 TO 8 HOURS NEEDED FOR 7 DAYS active Not Available Not Available No t Available bupropion HCl XL 300 mg 24 [...] DIRECTED BY GASTROENT EROLOGY DEPARTMEN T AT [facility]. 02/19 completed Not Available Not Available Not [...] Updated DateTime 5 165.74 cm 32.4 kg/m2 71361.9 g 64 /min 97 % 97 % 144/92 mm[Hg] Jolene Drew [facility] 5 10:54:06 Date Recorded Body height Body mass index (BMI) Body weight Heart rate Oxygen saturation Oxygen saturation in Arterial blood by Pulse oximetry Systolic And Diastolic Provider Name and Address Organization Details Last Updated DateTime 5 165.74 cm 32 kg/m2 56192.9 2 g 64 /min 98 % 98 % 128/86 mm[Hg] Jolene Drew [facility] 5 14:18:16 Date Recorded Body height Body mass index (BMI) Body weight Heart rate Oxygen saturation Oxygen saturation in Arterial blood by Pulse oximetry Systolic And Diastolic Provider Name and Address Organization Details Last Updated DateTime 5 165.74 cm 31 kg/m2 78573.3 7 g 80 /min 98 % 98 % 128/80 mm[Hg] Stephanie Boykin [facility] 5 14:32:05 Date Recorded Body height Body mass index (BMI) Body weight Heart rate Oxygen saturation Oxygen saturation in Arterial blood by Pulse oximetry Systolic And Diastolic Provider Name and Address Organization Details Last Updated DateTime 5 165.74 cm 30.1 kg/m2 13733.8 1 g 79 /min 97 % 97 % 128/80 mm[Hg] Stephanie Boykin [facility] 5 14:11:28 Social History Question Answer Notes LastModified by Organizat ion Details LastModified Time Tobacco Smoking Status Never Smoker Not Available [facility] 07/22/2020 03:36:24 What Was The Date Of Your Most Recent Tobacco Screening? 07/02/2025 Information not available 07/02/2025 Sex: Unknown Functional Status Question Answer Note LastModified by Organization D etails LastModified Time Do you or have you ever used any other forms of tobacco or nicotine? No [email or web address] Information not available 05/27/2023 Mental Status None recorded. Family History Relationship Description Onset Age of this Age Resolved Age Notes LastModified by Organization Details LastModified Time Father Hypercholest [email or web address] esparza Not available 2017 11:49:18 Mother Obesity [email or web address] Not available 12/29/2017 11:49:29 Mother Migraine vilma Not available 12/29/2017 11:49:40 Medical History No medical history recorded. Gynecological HistoryNo gynecological history recorded. Obstetrics History GPAL:G 0 P 0 0 0 0 Immunizations Vaccine Type Date Status Note Provider Nam e and Address Organization Details Recorded Time COVID-19, mRNA, LNP-S, PF, 30 mcg/0.3 mL dose 1 completed Gloria valdivia [facility] 07/10/2021 15:54:36 COVID-19, mRNA, LNP-S, PF, 30 mcg/0.3 mL dose 1 completed Gloria valdivia [facility] 07/10/2021 15:54:42 COVID-19, mRNA, LNP-S, PF, 30 mcg/0.3 mL dose 1 completed Gloria valdivia [facility] 07/12/2022 08:11:18 Influenza, split virus, quadrivalent, preservative 0 completed Gloria valdivia [facility] 07/12/2022 08:11:31 Influenza, split virus, quadrivalent, preservative 1 completed Gloria valdivia [facility] 07/12/2022 08:11:38 Past Encounters Encounter ID Performer Location Encounter Start Date Encounter Closed Date Diagnosis/Indication Diagnosis SNOMED-CT Code Diagnosis ICD10 Code Diagnosis IMO Codes Diagnosis Note [id number] [facility] [address] [facility] [address] 12/30/2017 10:20:38 12/30/2017 12:29:00 Dyspnea on exertion 99158147 R06.09 Iron defic iency anemia 82726967 D50.9 provided with list of foods high in iron, explained importance Left lower quadrant pain 795559118 R10.32 Asthma 844951993 J45.90 9 follow, continue with inhalers Fatigue 43132773 R53.83 ? r/t fe deficiency anemia, follow Gastroesop hageal reflux disease 042333495 K21.9 negative UGI, [id number] [facility] [address] [facility] [place],[address] [address] 01/09/2018 09:28:30 01/09/2018 10:22:38 Acute pelvic pain 261112935 R10.2 abnormal u/s awaiting claim clerk consult Iron defic iency anemia 05864048 D50.9 reiterated importance Dyspnea on exertion 6084 5006 R06.09 neg. CXR, ? r/t anemia, follow Gastroesop hageal reflux disease 937807136 K21.9 negative UGI, but symptomati c Asthma 758588988 J45.90 9 follow, continue with inhalers Depressive disorder 3548 9007 F32.89 continue sertraline [id number] [facility] [address] [facility] [place] [address] 02/07/2018 11:24:21 02/07/2018 12:27:12 Asthmatic bronchitis 800808597 J45.909 Moderate p ersistent asthma 110798911 J45.40 call if no better Iron defic iency anemia 67020542 D50.9 follow after claim clerk /lupron, had colonoscop y 5 years ago Dyspnea on exertion 6084 5006 R06.09 mildly improved, follow [id number] [facility] [address] [facility],[place] [address] 02/20/2018 10:55:17 02/20/2018 17:25:32 Acute bronchitis 50890799 J20.9 resolved, will fax letter to surgeon, unable to locate in system [id number] [facility] [address] [facility], [place] [address] 09/22/2018 13:24:58 09/22/2018 13:56:08 Asthma 907525557 J45.909 on advair on proair History of depression 16 4389136 Z86.59 on sertraline Acid reflux 107189233 K2 1.9 quiet without meds Acute sinusitis 05060417 J01.90 favor bacterial infection [id number] Ankur Massey [facility] [address] [facility],[place] [address] 01/15/2019 13:50:42 01/15/2019 16:24:14 Psoriasis 4502969 L40.9 Pain of left hand 375755 1973 51323 M79.642 Pain of right hand 94587 29183 44221 M79.641 Asthma 277884096 J45.90 9 stable, continue with inhalers Acid reflux 812285509 K2 1.9 controlled [id number] Ankur Massey [facility] [address] [facility],[place] [address] 12/03/2019 14:24:44 12/03/2019 15:04:40 Asthma 353830900 J45.909 stable Chronic uveitis 69886824 2 H20.12 pt has had painful, itchy, injected left eye intermitte ntly since May. has a hx of psoriasis which is being treated son has a hx of uveitis [id number] Ankur Massey [facility] [address] [facility] [address] 04/02/2020 11:01:48 04/02/2020 11:47:29 Asthma 189082976 J45.909 stable Chronic sinusitis 111837 00 J32.9 recommende d OTC flonase as well to help open up nasal passages and sinus and reduce inflammati on along with a longer course of abx most likely started as allergies and developed into sinus infection [id number] Ankur Massey [facility] [address] [facility] [address] 04/23/2020 14:23:31 04/23/2020 15:05:08 Chronic sinusitis 61578431 J32.[address] sinuses to see if there is any issue there Dyspnea 111394610 R06.00 will do an XR to r/o possible pulmonary involvemen t Chronic uveitis 62171573 2 H20.12 will work her up for any underlying conditions that may be contributi ng to her on going problems Fatigue 44976302 R53.83 could be just to the illness as she has been sick for almost a month now [id number] Ankur Massey [facility] [address] [facility],[place] [address] 07/13/2021 09:36:22 07/13/2021 10:29:03 Screening colonoscopy 468027289 Z12.11 will submit referral Insomnia 223087124 G47.0 9 will trial trazodone Asthma 386461612 J45.20 stable History of depression 16 3302329 Z86.59 switch medication given taper instructio ns Hyperlipidemia 21165109 E78.2 will trial low dose of pravastati n Anxiety 70415538 F41.1 will trial bupropion [id number] Ankur Massey [facility] [address] [facility],[place] [address] 07/12/2022 10:25:43 07/12/2022 13:31:01 Asthma 698213136 J45.20 worseningw ill switch to ventolin since pro air is off market Pain of le ft hip joint 0094065589 40899 M25.552 will trial a topicalwil l let me know if she would like to proceed with the MRI Candidiasis of skin 4988 3006 B37.2 will f/u with topical for flare ups [id number] Ankur Massey [facility] [address] [facility],[place] [address] 05/27/2023 11:39:06 05/27/2023 14:40:06 Asthma 376260353 J45.50 worseningw ill switch to ventolin since pro air is off market History of depression 16 1227141 Z86.59 switch medication given taper instructio ns Pain of le ft hip joint 2055788885 38514 M25.552 will trial a topicalwil l let me know if she would like to proceed with the MRI Hyperlipidemia 61331854 E78.2 [address] up with CT scan calcium score Screening colonoscopy 44 9911102 Z12.11 will submit referral again Insomnia 492073294 G47.0 9 no effect with trazodone Chronic back pain 109795 002 G89.29 will set up with plastic surgeon for consult with plastic surgeon [id number] Ankur Massey DO [facility] [address] [facility],[place] [place] [facility] [address] 02/20/2024 13:29:51 02/20/2024 15:12:06 Hyperlipidemia 47097115 E78.2 no statins Asthma 319760059 J45.50 worseningw ill switch to ventolin since pro air is off market Body mass index 30+ - obesity 442747380 Z68.34 agreed to start on phentermin e for the weight loss since diet and exercise alone have not helped Depressive disorder 2088 9007 F32.0 will set up with venlafaxin e for the depression less weight gain Thoracic back pain 27548 8004 M54.6 agreed to PT referral for eval and treatment plan Depression screening 171 510244 Z13.[address] [id number] Ankur Massey [facility] [address] [facility],[place] [facility] [address] 03/30/2024 09:52:37 03/30/2024 15:00:34 Depression screening 866594593 Z13.[address] Asthma 171455223 J45.50 worseningw ill switch to ventolin since pro air is off market Irritable bowel syndrome 30824836 K58.2 will set up with project systems engineer Insomnia 641009370 G47.0 9 will continue ambien [id number] Ankur Massey [facility] [address] [facility], [place] [address] 06/01/2024 09:50:39 06/01/2024 10:28:03 Asthma 665604461 J45.50 stable Polycystic ovary syndrome of bilateral ovaries 732462180 E28.2 stable Body mass index 30+ - obesity 337591415 Z68.34 increased dose of phentermin e and added topimax for combo treatment Insomnia 906754701 G47.0 9 will continue ambienno dose adjustment [id number] Ankur Massey [facility] [address] [facility],[place] [address] 08/06/2024 08:50:32 08/06/2024 11:21:52 Body mass index 30+ - obesity 985354014 Z68.34 increased dose of topimax for combo treatment Asthma 429654304 J45.50 stable Depressive disorder 3548 9007 F32.0 stable Exacerbati on of mild persistent asthma 194132871 J45.31 will start on short pred burst for residual inflammati on Hyperlipidemia 74524210 E78.2 no statins Thyroid nodule 618592526 E04.1 routine recheck [id number] Ankur Massey [facility] [address] [facility], [place] [address] 01/23/2025 10:11:55 01/23/2025 11:24:06 Body mass index 30+ - obesity 484063381 Z68.33 [id number] GERD, HLD, IFG, possibly sleep apnea [id number] Ankur Massey [facility] [address] [facility], [place] [address] 02/26/2025 10:42:20 02/26/2025 15:03:27 Depression screening 861144303 Z13.[address] Body mass index 30+ - obesity 611376965 Z68.33 GERD, HLD, IFG, possibly sleep apneaincre ase to the 5 mg and then 7.5 mg after the 4 weeksis losing inches from her waist, arms and legs that she has been noticing Slow trans it constipation 64554754 K59.01 8838 is holding on doing a CT scan w/wothinks after discussion she will call them back and go forward with the CT scan Uncomplica ny severe persistent asthma 479550736 J45.50 6699006 stable [id number] [facility] [address] [facility],[place] [address] 03/27/2025 10:19:36 03/27/2025 12:04:46 Polycystic ovary syndrome 662959452 E28.2 stable Slow trans it constipation 70969718 K59.01 8838 is holding on doing a CT scan w/wothinks after discussion she will call them back and go forward with the CT scan Depression screening 171 307949 Z13.[address] Body mass index 30+ - obesity 672460486 Z68.33 continue on the medication , increase the 7.5 mg Nausea 966543214 R11.0 will set up with refills [id number] Ankur Massey [facility] [address] [place] [address] 04/26/2025 14:09:19 04/26/2025 15:12:33 Depression screening 586543276 Z13.[address] Body mass index 30+ - obesity 218584755 Z68.33 continue on the medication , increase the 7.5 mg Insomnia 652741544 G47.0 9 will continue ambienno dose adjustment Mild depression 89593271 3 F32.A 707567 stable [id number] Ankur Massey [facility] [address] [place] [address] 06/04/2025 14:26:37 06/05/2025 09:30:37 Depression screening 691980171 Z13.[address] Body mass index 30+ - obesity 379261082 E66.9 9807512 stable Aversion t o food or drink 940880130 R63.39 8043776 Adult atte ntion deficit hyperactivity disorder 837758222 F90.9 970526 Nausea 600049549 R11.0 will set up with refills [id number] Ankur Massey [facility] [address] [place] [address] 07/02/2025 14:00:27 07/02/2025 15:47:16 Depression screening 891176084 Z13.[address] Body mass index 30+ - obesity 723393923 E66.9 stable Adult atte ntion deficit hyperactivity disorder 999300987 F90.9 047698 Mild depression 35415198 3 F32.A stable [id number] Ankur Massey [facility] [address] [place] [address] 07/10/2025 12:24:52 07/12/2025 09:49:42 Closed fracture of right ankle 7308317626 6159214 S82.891A 6500328 refillswit ch to ibu 800 mg TID Health Concerns Section Related Observation LastModified by Organization Detai ls LastModified Time None Recorded Concern Status LastModified by Organization Details LastModified Time None Recorded Advance Directives Directive None Recorded Payers Insurance Date Sequence Insurance Name Policy Number Policy Vaughn Covered Member ID Vaughn Member ID Guarantor Name 01/23/2025 1 [facility] [id number] Ree Gleason [id number] Ree Farah 07/10/2025 1 [facility] Ree Farah [id number] Ree Farah Notes Date Note Type Note [...] 7.5 mg the patient did see her EVENT MARKETING INTERN and GIhad questions about the GI doing [...] has been going well TJ GALINDO [address] [facility], [place], [address], [facility] Alberto [facility] 03/27/2025 11:17:37 5 text/html ROS [...] f/u in a month TJ GALINDO [address] [place], [address], [facility] 04/26/2025 14:59:05 5 text/html ROS [...] will seevs ADHD treatment TJ GALINDO [address] [place], [address], [facility] 06/04/2025 15:07:14 5 text/html ROS [...] on current dose of zepbound TJ GALINDO [address] [place] [address], [id number], [facility] 07/02/2025 14:40:16 5 text/html ROS [...] pain meds at this time TJ GALINDO [address] [place], [address], [facility] 07/10/2025 15:01:27 OBGyn Episode No OBEpisode recorded.
--- OUTSIDE RECORDS SUMMARY | 2025-07-25 17:25 | XMS_ITS | Patient Health Record ---
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 Alcohol use is described as occasional. Problems Problem Type SNOMED Code ICD Code Onset Dates Problem Status W/U Status Risk Notes Problem Hemorrhage of rectum and anus (408244073) Hemorrhage of rectum and anus (569.3) Active confirmed Problem Left lower quadrant pain (096570060) Abdominal pain, left lower quadrant (789.04) Active confirmed Plan Of Treatment Future Test Test Name Order Date COLONOSCOPY 12/10/2011 Insurance Providers Payer Name Payer Address Payer Phone Subscriber Number Group Number Insured Name Patient Relationship to Insured Coverage Start Date Coverage End Date [employer] (NEEDS REFERRA L) [address] [place] [id number] UMESH ALEXANDRE Self - patient is the insured Medical (General) History Medical History History ICD Code asthma psoriasis Surgical History Surgery Date(Month/Year) cholecystectomy tonsillectomy section x2
== END 2025-07-25 15:28 | disposition home or self-care (01) ==
LOC: HO.HOS 14:15
PROVIDERS: PCP Internal Medicine; Visit Provider Physician Assistant
DX: Z87.81 Personal history of (healed) traumatic fracture (principal); Z98.890 Other specified postprocedural states
CPT/HCPCS: 29515; 99024

== ENCOUNTER → 2025-07-25 14:15 | Outpatient (BNVA) | payer OTHER, SELFPAY | PROVIDERS: PCP Internal Medicine; Visit Provider Physician Assistant | DX: Z47.89 Encounter for other orthopedic aftercare (principal); Z98.890 Other specified postprocedural states; Z87.81 Personal history of (healed) traumatic fracture | CPT/HCPCS: 29515 ==

== ENCOUNTER 2025-07-29 11:35 | Outpatient (AMB) | payer OTHER, SELFPAY ==
--- NOTE | 2025-07-29 13:08 | MHC.OFFVIS ---
Intake Visit Reasons: PO RT ankle ORIF 07/17/25 NE-splint change Intake Note: Splint change Allergies No Known Allergies Allergy (Verified 07/09/25 21:49) Medication List - Last Reconciled 07/29/25 by Navin Flood PA-C albuterol sulfate 90 mcg/actuation (Ventolin HFA) 2 puffs inhalation Q6H PRN celecoxib 200 mg PO BID PRN docusate sodium 100 mg PO DAILY bbmssehtiqy-ejruqatue-dgbigdio 100-62.5-25 mcg (Trelegy Ellipta) 1 ea inhalation DAILY gabapentin 300 mg PO TID PRN guselkumab (Tremfya) 100 mg subcut Q3M linaclotide (Linzess) 145 mcg PO DAILY montelukast 10 mg PO DAILY ondansetron HCl 8 mg PO BID PRN oxycodone 5 mg PO Q4H PRN 7 days tirzepatide (weight loss) (Zepbound) 12.5 mg subcut QWEEK zolpidem 10 mg PO BEDTIME HPI HPI PO RT ankle ORIF 07/17/25 NE-splint change: Details: 55-year-old female presents to the office today for a concern to her splint. She had it changed last week and feels there is discomfort along the medial side of the foot. She had an ORIF of the right ankle on 07/17/2025. [facility] Medical History IBS (irritable colon syndrome) Psoriatic arthritis Endometriosis of abdomen Arthritis High cholesterol Asthma Surgical History Hx of section Hx of adenoidectomy Hx of tonsillectomy Hx laparoscopic cholecystectomy Hx of hysterectomy Hx of colonoscopy History of esophagogastroduodenoscopy (EGD) Social History Household Members: Family Household Members Other:: two adult sons Housing: House Are you a primary career information specialist to a significant other at home: No Do you presently have visiting nurse or other home services: No Patient Tobacco Use Status: Never used Tobacco service: No Current occupational status: employed 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 Pulses are present sensation intact. Office Procedures Casting/Splints 36490-Kdcku Leg Cast Application Procedure code (CPT) selection complete Assessment & Plan Assessment & Plan (1) Status post ORIF of fracture of ankle: Code(s): Z98.890 - Other specified postprocedural states; Z87.81 - Personal history of (healed) traumatic fracture Category: Surgical Plan: Splint was removed today. The incisions remain clean dry and intact. She was placed in a short-leg cast which she will remain nonweightbearing for the next [address] an order for x-rays today however the patient left without these being done. At her next appointment we will have cast off with x-rays. She will return sooner if needed. Orders: Orders XR ankle RT min 3V Today M25.571 - Pain in right ankle and joints of right foot Coding Level of Care Code Global (71416) Diagnoses Status post ORIF of fracture of ankle Z98.890; Z87.81 CPT Codes Casting - CPT: 19497-Jpmzo Leg Cast Application ([id number])
--- OUTSIDE RECORDS SUMMARY | 2025-07-29 13:59 | XMS_ITS | Data Portability ---
Author Organization [facility], Telehealth Patient Home Address [address] [place] [address] Assessment No assessment recorded. Plan of Treatment Reminders Order Date Submit Date Provider Last Modified By Organization Details Last Modified Time Details Appointments FOLLOW UP 15 2024 10:30A M TJ GALINDO Not available Not available Not available Lab None recorded. Referral None recorded. Procedures None recorded. Surgeries None recorded. Imaging None recorded. Medication Orders oxycodone 5 mg tablet 2024 [place], [address] [place], [address], 07/10/2025 14:58:20 buspirone 10 mg tablet 2024 [facility], [address] [place], [address], 07/02/2025 14:37:55 dextroamp hetamine- amphetami ne 10 mg tablet 2024 [facility], [address] [place], [address], 07/23/2025 05:01:46 Zepbound 12.5 mg/0.5 mL subcutane ous pen injector 2024 [facility] [facility], [address] [place], [address], 07/02/2025 14:27:09 ondansetr on HCl 8 mg tablet 2024 025 [facility], [address] [place], [address], 07/02/2025 14:28:07 Zepbound 12.5 mg/0.5 mL subcutane ous pen injector 2024 025 [place] [facility], [address] [place], [address], 06/04/2025 15:01:03 zolpidem 5 mg tablet 2024 025 [place] [facility], [address] [place], [address], 04/26/2025 14:47:51 buspirone 10 mg tablet 2024 025 [place] [facility], [address] [place], [address], 04/26/2025 14:55:29 Zepbound 10 mg/0.5 mL subcutane ous pen injector 2024 025 [place] [facility], [address] [place], [address], 06/04/2025 15:00:32 ondansetr on HCl 8 mg tablet 2024 025 [facility], [address] [place], [address], 07/02/2025 14:27:49 Zepbound 7.5 mg/0.5 mL subcutane ous pen injector 2024 025 [place] [facility], [address] [place], [address], 06/04/2025 14:36:04 Patient TargetsNo targets recorded. Patient InstructionsNo instructions recorded. Reason for Referral None Reported. Results Created Date Observation Date Name Description Value Unit Range Abnormal Flag Note LastModifiedBy Organization Detail LastModifiedTime 07/08/2007/08/2025 XR, knee No observ ation record ed. [email or web address] [facility] (Medical Records) [address] [place], [address], 07/08/2025 13:28:46 07/08/2007/08/2025 XR, ankle No observ ation record ed. [email or web address] [facility] (Medical Records) [address] [place], [address], 07/08/2025 13:28:57 07/08/2007/08/2025 XR, ankle No observ ation record ed. [email or web address] [facility] (Medical Records) [address] [place], [address], 07/08/2025 13:29:09 07/12/2007/11/2025 XR, ankle No observ ation record ed. [email or web address] [address] [place], [address], 07/12/2025 10:37:53 07/17/2007/17/2025 fluor oscop y (PROC ) No observ ation record ed. [address] (Medical Records) [address] [place], [address], 07/17/2025 16:25:49 07/17/2007/17/2025 fluor oscop y (PROC ) No observ ation record ed. [address] (Medical Records) [address] [place], [address], 07/17/2025 16:26:13 Result Notes None recorded. Problems Name Problem SNOMED Code Status Onset Date Resolution Date Notes Provider Name and Address Organization Details Recorded Time Asthma 856028996 Active 2017 Vannesa valdivia MA [facility] 8 14:21:55 History of depressio n 831549347 Active 2017 [facility] 14:22:01 Acid reflux 364740123 Active 2017 [facility] 8 14:22:15 Psoriasis 9368893 Active 2017 Juana Quinonez NP, S [address] [place] [address], [address], [facility] Medicine 8 11:45:40 Thyroid nodule 348226716 Active 2017 Juana Quinonez NP, S [address] [place] [address], [address], [facility] 8 11:45:50 Pain of left hip joint 955909979241 100 Active 2021 TJ GALINDO [address] [place] [address], [address], [facility] 2 10:39:06 Candidias is of skin 69654441 Active 2021 TJ GALINDO [address] [place] [address], [address], [facility] 2 10:40:16 Polycysti c ovary syndrome 426132391 Active 2022 TJ GALINDO [address] [place] [address], [address], [facility] 3 12:10:08 Hyperlipi demia 85226879 Active 2022 TJ GALINDO [address] [place] [address], [address], [facility] 3 12:10:23 Insomnia 549658820 Active 2022 TJ GALINDO [address] [place] [address], [address], [facility] 3 12:17:53 Chronic back pain 894917010 Active 2022 TJ GALINDO [address] [place] [address], [address], [facility] 3 12:20:10 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 406518925 Active 2022 TJ GALINDO [address] [place] [address], [address], [facility] 3 14:05:44 Depressiv e disorder 17539537 Active 2023 TJ GALINDO [address] [place] [address], [address], [facility] 4 14:09:02 Thoracic back pain 896649887 Active 2023 TJ GALINDO [address] [place] [address], [address], [facility] 4 14:11:40 Irritable bowel syndrome 08587928 Active 2023 TJ GALINDO [address] [place] [address], [address], [facility] 4 10:13:52 Exacerbat ion of mild persisten t asthma 550367760 Active 2023 TJ GALINDO [address] [place] [address], [address], [facility] 4 10:43:51 Nausea 683272432 Active 2024 Ankur Massey DO [address] [place] [address], [address], [facility] 5 22:59:03 [address] transit constipat ion 69305594 Active 2024 TJ GALINDO [address] [place] [address], [address], [facility] 5 11:28:06 Uncomplic ated severe persisten t asthma 511608105 Active 2024 TJ GALINDO [address] [place] [address], [address], [facility] 5 11:28:29 Mild depressio n 995248955 Active 2024 TJ GALINDO [address] [place] [address], [address], [facility] 14:52:09 Body mass index 30+ - obesity 262820977 Active 2024 TJ GALINDO [address] [place] [address], [address], [facility] 5 14:41:22 Adult attention deficit hyperacti vity disorder 830059148 Active 2024 TJ GALINDO [address] [place] [address], [address], [facility] 14:53:06 Aversion to food or drink 804009981 Active 2024 TJ GALINDO [address] [place] [address], [address], [facility] 5 15:01:49 Closed fracture of right ankle 937833095100 38608 Active 2024 TJ GALINDO [address] [place] [address], [address], [facility] 14:56:55 Problem Notes None recorded. Procedures Surgical History Date Name Laterality Status Provider Name and Address Organization Details Recorded Time 995 Cholecystectomy completed Juana Quinonez NP, S [address] [place] [address], [address], [facility] 12/29/2017 11:47:57 985 Remove tonsils and adenoids completed Juana Quinonez NP, S [address] [place] [address], [address], [facility] 12/29/2017 11:47:40 Imaging Results None recorded. Procedure Notes None recorded. Medical Equipment None Reported. Allergies Allergen ID Allergen Name Allergen Category Reaction Reaction Severity Criticality Documentation Date Start Date Code Code System Note Provider Name and Address Organization Details Recorded Time 3197 Product containin g 3-hydroxy -3-methyl glutaryl- coenzyme A reductase inhibitor (product) medicatio n Not available Not available Not available 08/06/2024 56557 009 TJ MADSEN [address] [place], [address], [facility] 10:49:35 Medications Name Sig Start [...] DIRECTED BY GASTROENT EROLOGY DEPARTMEN T AT [facility]. 02/19 completed Not Available Not Available [...] Updated DateTime 5 165.74 cm 32.4 kg/m2 34920.9 g 64 /min 97 % 97 % 144/92 mm[Hg] Jolene Drew [facility] 5 10:54:06 Date Recorded Body height Body mass index (BMI) Body weight Heart rate Oxygen saturation Oxygen saturation in Arterial blood by Pulse oximetry Systolic And Diastolic Provider Name and Address Organization Details Last Updated DateTime 5 165.74 cm 32 kg/m2 52328.9 2 g 64 /min 98 % 98 % 128/86 mm[Hg] Jolene Drew [facility] 5 14:18:16 Date Recorded Body height Body mass index (BMI) Body weight Heart rate Oxygen saturation Oxygen saturation in Arterial blood by Pulse oximetry Systolic And Diastolic Provider Name and Address Organization Details Last Updated DateTime 5 165.74 cm 31 kg/m2 09956.3 7 g 80 /min 98 % 98 % 128/80 mm[Hg] Stephanie Boykin [facility] 5 14:32:05 Date Recorded Body height Body mass index (BMI) Body weight Heart rate Oxygen saturation Oxygen saturation in Arterial blood by Pulse oximetry Systolic And Diastolic Provider Name and Address Organization Details Last Updated DateTime 5 165.74 cm 30.1 kg/m2 37456.8 1 g 79 /min 97 % 97 % 128/80 mm[Hg] Stephanie Boykin [facility] Medicine 5 14:11:28 Social History Question Answer Notes LastModified by Organizat ion Details LastModified Time Tobacco Smoking Status Never Smoker Not Available [facility] 07/22/2020 03:36:24 What Was The Date Of Your Most Recent Tobacco Screening? 07/02/2025 [email or web address] Information not available 07/02/2025 Sex: Unknown Functional Status Question Answer Note LastModified by Organization D etails LastModified Time Do you or have you ever used any other forms of tobacco or nicotine? No [email or web address] Information not available 05/27/2023 Mental Status None recorded. Family History Relationship Description Onset Age of this Age Resolved Age Notes LastModified by Organization Details LastModified Time Father Hypercholest judy esparza Not available 2017 11:49:18 Mother Obesity [...] mcg/0.3 mL dose 1 completed Gloria valdivia [facility] 07/10/2021 15:54:36 COVID-19, mRNA, LNP-S, PF, 30 mcg/0.3 mL dose 1 completed Gloria valdivia [facility] 07/10/2021 15:54:42 COVID-19, mRNA, LNP-S, PF, 30 mcg/0.3 mL dose 1 completed Gloria valdivia [facility] 07/12/2022 08:11:18 Influenza, split virus, quadrivalent, preservative 0 completed Gloria valdivia [facility] 07/12/2022 08:11:31 Influenza, split virus, quadrivalent, preservative 1 completed Gloria valdivia [facility] 07/12/2022 08:11:38 Past Encounters Encounter ID Performer Location Encounter Start Date Encounter Closed Date Diagnosis/Indication Diagnosis SNOMED-CT Code Diagnosis ICD10 Code Diagnosis IMO Codes Diagnosis Note [id number] Ankur Massey DO [facility] [address] [facility],[place] [address] 12/30/2017 10:20:38 12/30/2017 12:29:00 Dyspnea on exertion 99229442 R06.09 Iron defic iency anemia 33377802 D50.9 provided with list of foods high in iron, explained importance Left lower quadrant pain 075348033 R10.32 Asthma 387513915 J45.90 9 follow, continue with inhalers Fatigue 68573088 R53.83 ? r/t fe deficiency anemia, follow Gastroesop hageal reflux disease 326930465 K21.9 negative UGI, [id number] Ankur Massey DO [facility] [address] [facility] [place] [facility] [place] [address] 01/09/2018 09:28:30 01/09/2018 10:22:38 Acute pelvic pain 126841153 R10.2 abnormal u/s awaiting uniform room attendant consult Iron defic iency anemia 72604222 D50.9 reiterated importance Dyspnea on exertion 6084 5006 R06.09 neg. CXR, ? r/t anemia, follow Gastroesop hageal reflux disease 228939322 K21.9 negative UGI, but symptomati c Asthma 567558830 J45.90 9 follow, continue with inhalers Depressive disorder 3548 9007 F32.89 continue sertraline [id number] Ankur Massey DO [facility] [address] [facility], [facility] [address] 02/07/2018 11:24:21 02/07/2018 12:27:12 Asthmatic bronchitis 753020417 J45.909 Moderate p ersistent asthma 296615319 J45.40 call if no better Iron defic iency anemia 71166622 D50.9 follow after uniform room attendant /lupron, had colonoscop y 5 years ago Dyspnea on exertion 6084 5006 R06.09 mildly improved, follow [id number] Ankur Massey DO [facility] [address] [facility],[place] [address] 02/20/2018 10:55:17 02/20/2018 17:25:32 Acute bronchitis 55661104 J20.9 resolved, will fax letter to surgeon, unable to locate in system [id number] Ankur Massey DO [facility] [address] [facility], [place] [address] 09/22/2018 13:24:58 09/22/2018 13:56:08 Asthma 797225240 J45.909 on advair on proair History of depression 16 1355518 Z86.59 on sertraline Acid reflux 823439585 K2 1.9 quiet without meds Acute sinusitis 37028611 J01.90 favor bacterial infection [id number] Ankur Massey [facility] [address] [facility],[place] [address] 01/15/2019 13:50:42 01/15/2019 16:24:14 Psoriasis 4925756 L40.9 Pain of left hand 868954 4881 58593 M79.642 Pain of right hand 36145 00599 20690 M79.641 Asthma 632547623 J45.90 9 stable, continue with inhalers Acid reflux 714607951 K2 1.9 controlled [id number] Ankur Massey [facility] [address] [facility],[place] [address] 12/03/2019 14:24:44 12/03/2019 15:04:40 Asthma 774340827 J45.909 stable Chronic uveitis 06513814 2 H20.12 pt has had painful, itchy, injected left eye intermitte ntly since May. has a hx of psoriasis which is being treated son has a hx of uveitis [id number] Ankur Massey [facility] [address] [facility] [place] [address] 04/02/2020 11:01:48 04/02/2020 11:47:29 Asthma 650532275 J45.909 stable Chronic sinusitis 679234 00 J32.9 recommende d OTC flonase as well to help open up nasal passages and sinus and reduce inflammati on along with a longer course of abx most likely started as allergies and developed into sinus infection [id number] Ankur Massey [facility] [address] [facility] [place] [address] 04/23/2020 14:23:31 04/23/2020 15:05:08 Chronic sinusitis 15580226 J32.[address] sinuses to see if there is any issue there Dyspnea 973880281 R06.00 will do an XR to r/o possible pulmonary involvemen t Chronic uveitis 08115985 2 H20.12 will work her up for any underlying conditions that may be contributi ng to her on going problems Fatigue 60081355 R53.83 could be just to the illness as she has been sick for almost a month now [id number] Ankur Massey [facility] [address] [facility],[place] [address] 07/13/2021 09:36:22 07/13/2021 10:29:03 Screening colonoscopy 583473286 Z12.11 will submit referral Insomnia 678026296 G47.0 9 will trial trazodone Asthma 603695221 J45.20 stable History of depression 16 3818963 Z86.59 switch medication given taper instructio ns Hyperlipidemia 49667023 E78.2 will trial low dose of pravastati n Anxiety 09862972 F41.1 will trial bupropion [id number] Ankur Massey [facility] [address] [facility],[place] [address] 07/12/2022 10:25:43 07/12/2022 13:31:01 Asthma 135100832 J45.20 worseningw ill switch to ventolin since pro air is off market Pain of le ft hip joint 1958802364 98564 M25.552 will trial a topicalwil l let me know if she would like to proceed with the MRI Candidiasis of skin 4988 3006 B37.2 will f/u with topical for flare ups [id number] Ankur Massey [facility] [address] [facility],[place] [address] 05/27/2023 11:39:06 05/27/2023 14:40:06 Asthma 394246544 J45.50 worseningw ill switch to ventolin since pro air is off market History of depression 16 5838743 Z86.59 switch medication given taper instructio ns Pain of le ft hip joint 6471512943 55585 M25.552 will trial a topicalwil l let me know if she would like to proceed with the MRI Hyperlipidemia 47892828 E78.2 [address] up with CT scan calcium score Screening colonoscopy 44 9627088 Z12.11 will submit referral again Insomnia 683192364 G47.0 9 no effect with trazodone Chronic back pain 807895 002 G89.29 will set up with plastic surgeon for consult with plastic surgeon [id number] Ankur Massey DO [facility] [address] [facility],[address] [facility] [address] 02/20/2024 13:29:51 02/20/2024 15:12:06 Hyperlipidemia 92746412 E78.2 no statins Asthma 068710352 J45.50 worseningw ill switch to ventolin since pro air is off market Body mass index 30+ - obesity 102510029 Z68.34 agreed to start on phentermin e for the weight loss since diet and exercise alone have not helped Depressive disorder 2288 9007 F32.0 will set up with venlafaxin e for the depression less weight gain Thoracic back pain 23148 8004 M54.6 agreed to PT referral for eval and treatment plan Depression screening 171 160298 Z13.[address] [id number] Ankur Massey [facility] [address] [facility],[address] [employer] [facility] [address] 03/30/2024 09:52:37 03/30/2024 15:00:34 Depression screening 516592332 Z13.[address] Asthma 603902928 J45.50 worseningw ill switch to ventolin since pro air is off market Irritable bowel syndrome 93827774 K58.2 will set up with truant officer Insomnia 496603512 G47.0 9 will continue ambien [id number] Ankur Massey [facility] [address] [facility], [employer] [place] [address] 06/01/2024 09:50:39 06/01/2024 10:28:03 Asthma 336614514 J45.50 stable Polycystic ovary syndrome of bilateral ovaries 392112952 E28.2 stable Body mass index 30+ - obesity 570929662 Z68.34 increased dose of phentermin e and added topimax for combo treatment Insomnia 106095831 G47.0 9 will continue ambienno dose adjustment [id number] Ankur Massey [facility] [address] [facility],[place] [address] 08/06/2024 08:50:32 08/06/2024 11:21:52 Body mass index 30+ - obesity 279024716 Z68.34 increased dose of topimax for combo treatment Asthma 932447507 J45.50 stable Depressive disorder 3548 9007 F32.0 stable Exacerbati on of mild persistent asthma 531173189 J45.31 will start on short pred burst for residual inflammati on Hyperlipidemia 12050045 E78.2 no statins Thyroid nodule 801999574 E04.1 routine recheck [id number] Ankur Massey [facility] [address] [facility], [place] [address] 01/23/2025 10:11:55 01/23/2025 11:24:06 Body mass index 30+ - obesity 666324390 Z68.33 787375 GERD, HLD, IFG, possibly sleep apnea [id number] Ankur Massey [facility] [address] [facility] [address] 02/26/2025 10:42:20 02/26/2025 15:03:27 Depression screening 473872609 Z13.[address] Body mass index 30+ - obesity 425567304 Z68.33 GERD, HLD, IFG, possibly sleep apneaincre ase to the 5 mg and then 7.5 mg after the 4 weeksis losing inches from her waist, arms and legs that she has been noticing Slow trans it constipation 74720375 K59.01 8838 is holding on doing a CT scan w/wothinks after discussion she will call them back and go forward with the CT scan Uncomplica ny severe persistent asthma 275718637 J45.50 2147342 stable [id number] [facility] [address] [facility],[place] [address] 03/27/2025 10:19:36 03/27/2025 12:04:46 Polycystic ovary syndrome 608087842 E28.2 stable Slow trans it constipation 72986467 K59.01 8838 is holding on doing a CT scan w/wothinks after discussion she will call them back and go forward with the CT scan Depression screening 171 117746 Z13.[address] Body mass index 30+ - obesity 756963252 Z68.33 continue on the medication , increase the 7.5 mg Nausea 264528523 R11.0 will set up with refills [id number] Ankur Massey [facility] [address] [place] [address] 04/26/2025 14:09:19 04/26/2025 15:12:33 Depression screening 987423912 Z13.[address] Body mass index 30+ - obesity 182117461 Z68.33 continue on the medication , increase the 7.5 mg Insomnia 499956743 G47.0 9 will continue ambienno dose adjustment Mild depression 50159608 3 F32.A 886808 stable [id number] Ankur Massey [facility] [address] [place] [address] 06/04/2025 14:26:37 06/05/2025 09:30:37 Depression screening 531241721 Z13.[address] Body mass index 30+ - obesity 728785438 E66.9 1350924 stable Aversion t o food or drink 712989843 R63.39 8363132 Adult atte ntion deficit hyperactivity disorder 613505250 F90.9 502586 Nausea 232859843 R11.0 will set up with refills [id number] Ankur Massey [facility] [address] [place] [address] 07/02/2025 14:00:27 07/02/2025 15:47:16 Depression screening 143294335 Z13.[address] Body mass index 30+ - obesity 003585906 E66.9 stable Adult atte ntion deficit hyperactivity disorder 244632549 F90.9 264562 Mild depression 44838086 3 F32.A stable [id number] Ankur Massey [facility] [address] [place] [address] 07/10/2025 12:24:52 07/12/2025 09:49:42 Closed fracture of right ankle 7891805869 2010809 S82.891A 8438987 refillswit ch to ibu 800 mg [facility] Health Concerns Section Related Observation LastModified by Organization Detai ls LastModified Time None Recorded Concern Status LastModified by Organization Details LastModified Time None Recorded Advance Directives Directive None Recorded Payers Insurance Date Sequence Insurance Name Policy Number Policy Vaughn Covered Member ID Vaughn Member ID Guarantor Name 01/23/2025 1 [facility] [id number] Ree Gleason [id number] Ree Farah 07/10/2025 1 [facility] Ree Farah [id number] Ree Farah Notes Date Note Type Note [...] 7.5 mg the patient did see her SE[employer]MENT [employer]ER and GIhad questions about the GI doing [...] has been going well TJ GALINDO [address] [facility], [place], [address], [facility] 03/27/2025 11:17:37 [...] f/u in a month TJ GALINDO [address] [place], [address], [facility] 04/26/2025 14:59:05 5 [...] will seevs ADHD treatment TJ GALINDO [address] [place], [address], [facility] 06/04/2025 15:07:14 5 [...] on current dose of zepbound TJ GALINDO [address] [place] [address], [address], [facility] 07/02/2025 14:40:16 5 [...] meds at this time TJ GALINDO [address] [place], [address], [facility] 07/10/2025 15:01:27 OBGyn Episode No OBEpisode recorded.
== END 2025-07-29 12:22 | disposition home or self-care (01) ==
LOC: HO.HOS 11:36
PROVIDERS: PCP Internal Medicine; Visit Provider Physician Assistant
DX: Z87.81 Personal history of (healed) traumatic fracture (principal); Z98.890 Other specified postprocedural states
CPT/HCPCS: 29405; 99024

== ENCOUNTER 2025-07-29 11:35 | Outpatient (REF) | payer OTHER, SELFPAY ==
--- OUTSIDE RECORDS SUMMARY | 2025-07-29 14:16 | XMS_ITS | Clinical Summary ---
Author Organization [facility] Address [address] [place] [phone] Phone Care Team Providers Care Vegetable Worker Name Role Phone Ankur Massey DO Primary Care Provider [phone] Encounters Date Type Department Care Team Description 07/18/2025 Orders Only [facility] [address], [place] [phone] Homehealth, Interface ProviderMD from Last 3 Months [...] file Medical Devices Not on file Insurance [facility] POS EPO [facility] POS EPO [facility] POS EPO [facility] POS EPO [facility] POS EPO [facility] POS EPO Care Teams Vegetable Worker Relationship Specialty Start Date End Date Ankur Massey DO [address] [place] [id number] PCP - General 07/18/25 Additional Source Comments The information contained in this document represents components of the legal health record. It is not the complete legal health record.[facility]
== END 2025-07-29 11:36 | disposition home or self-care (01) ==
LOC: HO.HOSX 11:35
PROVIDERS: PCP Internal Medicine; Visit Provider Physician Assistant
DX: Z98.890 Other specified postprocedural states (principal); Z87.81 Personal history of (healed) traumatic fracture; M25.571 Pain in right ankle and joints of right foot
CPT/HCPCS: 29405

== ENCOUNTER 2025-08-01 08:03 | Outpatient (REF) | payer OTHER, SELFPAY | END 2025-08-01 08:04 | disposition home or self-care (01) | LOC: HO.HOSX 08:03 | PROVIDERS: Visit Provider Physician Assistant | DX: Z13.89 Encounter for screening for other disorder (principal) ==

== ENCOUNTER 2025-08-06 14:55 | Outpatient (AMB) | payer OTHER, SELFPAY ==
--- NOTE | 2025-08-06 15:18 | MHC.OFFVIS ---
Intake Visit Reasons: Cast Change Intake Note: Ree is a 55 year old female who presents today for a post operative appointment status post right ankle ORIF done on 07/17/25 Dr. Wray. Patient reports she felt her cast rubbing in her ankle. She also mentions some numbness in her heal. Allergies No Known Allergies Allergy (Verified 08/06/25 15:19) HPI HPI Cast Change: Details: Ms. Farah is a 55-year-old female who presents to the office today for a cast change status post right ankle ORIF performed on 07/17/2025. Patient states that the cast became loose and was rubbing on her skin. Additionally, she reports a burning sensation along the Achilles. She saw her primary care doctor today who increased her gabapentin to assist with this burning sensation. Additionally, the patient reports that Celebrex has not been assisting with her inflammation and therefore her PCP recommended a different anti-inflammatory and was sent to the pharmacy. [facility] Medical History IBS (irritable colon syndrome) Psoriatic arthritis Endometriosis of abdomen Arthritis High cholesterol Asthma Surgical History Hx of section Hx of adenoidectomy Hx of tonsillectomy Hx laparoscopic cholecystectomy Hx of hysterectomy Hx of colonoscopy History of esophagogastroduodenoscopy (EGD) Social History Household Members: Family Household Members Other:: two adult sons Housing: House Are you a primary health care liaison to a significant other at home: No Do you presently have visiting nurse or other home services: No Patient Tobacco Use Status: Never used Tobacco service: No Current occupational status: employed 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 Steri-Strips remain intact. No surrounding erythema or drainage. No signs of infection. Mild edema located on both the medial and lateral malleolus. Skin is intact over the area in which the patient reports burning along the Achilles tendon. No open wounds or pressure sores present. NVI. Psych Appearance: grossly normal Mental Status: mental status grossly normal Attitude: cooperative Office Procedures Casting/Splints 85988-[id number] Leg Cast Application Procedure code (CPT) selection complete Assessment & Plan Assessment & Plan (1) Status post ORIF of fracture of ankle: Code(s): Z98.890 - Other specified postprocedural states; Z87.81 - Personal history of (healed) traumatic fracture Category: Surgical Plan Ms. Farah is a 55-year-old female who presents to the office today for a cast change status post right ankle ORIF performed on 07/17/2025. Patient states that the cast became loose and was rubbing on her skin. Additionally, she reports a burning sensation along the Achilles. She saw her primary care doctor today who increased her gabapentin to assist with this burning sensation. Additionally, the patient reports that Celebrex has not been assisting with her inflammation and therefore her PCP recommended a different anti-inflammatory and was sent to the pharmacy. Upon evaluating the patient in the office today I feel her swelling is well managed. She is not exhibiting any signs of infection. She may be developing a hot spot over the posterior aspect of the ankle along the Achilles. She will be placed into a short-leg cast today and we will take extra precaution and padding along this area. Patient was educated on cast maintenance and instructed to keep the cast clean, dry, and intact. However, should the cast become wet, dirty, damaged, or there are any concerns please call the office immediately for a cast change. She will follow up at her normally scheduled follow up appointment, sooner if needed. Coding Level of Care Code Global (69050) Diagnoses Status post ORIF of fracture of ankle Z98.890; Z87.81 CPT Codes Casting - CPT: 12936-Hcneq Leg Cast Application ([id number])
--- OUTSIDE RECORDS SUMMARY | 2025-08-07 12:59 | XMS_ITS | Data Portability ---
Author Organization [facility], Telehealth Patient Home Address [address] [place] [address] Assessment No assessment recorded. Plan of Treatment Reminders Order Date Submit Date Provider Last Modified By Organization Details Last Modified Time Details Appointments FOLLOW UP 15 2024 10:15A M TJ GALINDO Not available Not available Not available Lab None recorded. Referral None recorded. Procedures None recorded. Surgeries None recorded. Imaging None recorded. Medication Orders gabapenti n 400 mg capsule 2024 [place] [facility], [address] [place], [address], 08/06/2025 10:53:31 diclofena c sodium 75 mg tablet,de layed release 2024 [place] [facility], [address] [place], [address], 08/06/2025 10:53:31 Zepbound 12.5 mg/0.5 mL subcutane ous pen injector 2024 [place] [facility], [address] [place], [address], 08/06/2025 11:17:08 oxycodone 5 mg tablet 2024 025 [place] [facility], [address] [place], [address], 07/10/2025 14:58:20 buspirone 10 mg tablet 2024 025 [place] [facility], [address] [place], [address], 07/02/2025 14:37:55 dextroamp hetamine- amphetami ne 10 mg tablet 2024 025 [facility], [address] [place], [address], 08/06/2025 11:02:36 Zepbound 12.5 mg/0.5 mL subcutane ous pen injector 2024 025 [place] [facility], [address] [place], [address], 07/02/2025 14:27:09 ondansetr on HCl 8 mg tablet 2024 025 [place] [facility], [address] [place], [address], 07/02/2025 14:28:07 Zepbound 12.5 mg/0.5 mL subcutane ous pen injector 2024 025 [place] [facility], [address] [place], [address], 06/04/2025 15:01:03 zolpidem 5 mg tablet 2024 025 [place] [facility], [address] [place], [address], 04/26/2025 14:47:51 buspirone 10 mg tablet 2024 025 [place] [facility], [address] [place], [address], 04/26/2025 14:55:29 Zepbound 10 mg/0.5 mL subcutane ous pen injector 2024 025 [place] [facility], [address] [facility], [place], [address], 06/04/2025 15:00:32 Patient TargetsNo targets recorded. Patient InstructionsNo instructions recorded. Reason for Referral None Reported. Results Created Date Observation Date Name Description Value Unit Range Abnormal Flag Note LastModifiedBy Organization Detail LastModifiedTime 07/08/2007/08/2025 XR, knee No observ ation record ed. [email or web address] [facility] (Medical Records) [address] [place], [address], 07/08/2025 13:28:46 07/08/2007/08/2025 XR, ankle No observ ation record ed. [address] (Medical Records) [address] [place], [address], 07/08/2025 13:28:57 07/08/2007/08/2025 XR, ankle No observ ation record ed. [email or web address] (Medical Records) [address] [place], [address], 07/08/2025 13:29:09 07/12/2007/11/2025 XR, ankle No observ ation record ed. [email or web address] [address] [place], [address], 07/12/2025 10:37:53 07/17/2007/17/2025 fluor oscop y (PROC ) No observ ation record ed. [email or web address] (Medical Records) [address] [place], [address], 07/17/2025 16:25:49 07/17/2007/17/2025 fluor oscop y (PROC ) No observ ation record ed. [address] (Medical Records) [address] [place], [address], 07/17/2025 16:26:13 Result Notes None recorded. Problems Name Problem SNOMED Code Status Onset Date Resolution Date Notes Provider Name and Address Organization Details Recorded Time Asthma 957770608 [facility] 14:21:55 History of depressio n 974497220 Active 2017 [facility] 14:22:01 Acid reflux 704784463 Active 2017 Vannesa valdivia [facility] 8 14:22:15 Psoriasis 8949025 Active 2017 Juana Quinonez NP, [address] [place], [address], [facility] 8 11:45:40 Thyroid nodule 736994506 Active 2017 Juana Quinonez NP, [address] [place], [address], [facility] 8 11:45:50 Pain of left hip joint 223792909372 100 Active 2021 TJ GALINDO [address] [place], [address], [facility] 2 10:39:06 Candidias is of skin 11166593 Active 2021 TJ GALINDO [address] [place] [address], [address], [facility] 2 10:40:16 Polycysti c ovary syndrome 026262159 Active 2022 TJ GALINDO [address] [place], [address], [facility] 3 12:10:08 Hyperlipi demia 85498535 Active 2022 TJ GALINDO [address] [place], [address], [facility] 3 12:10:23 Insomnia 511185906 Active 2022 TJ GALINDO [address] [place], [address], [facility] 3 12:17:53 Chronic back pain 939263690 Active 2022 TJ GALINDO [address] [place] [address], [address], [facility] 3 12:20:10 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 650809037 Active 2022 TJ GALINDO [address] [place] [address], [address], [facility] 3 14:05:44 Depressiv e disorder 09336632 Active 2023 TJ GALINDO [address] [place] [address], [address], [facility] 4 14:09:02 Thoracic back pain 677998282 Active 2023 TJ GALINDO [address] [place] [address], [address], [facility] 4 14:11:40 Irritable bowel syndrome 35455101 Active 2023 TJ GALINDO [address] [place] [address], [address], [facility] 4 10:13:52 Exacerbat ion of mild persisten t asthma 852859247 Active 2023 TJ GALINDO [address] [place] [address], [address], [facility] 4 10:43:51 Nausea 389025172 Active 2024 Ankur Massey DO [address] [place] [address], [address], [facility] 5 22:59:03 Slow transit constipat ion 63030338 Active 2024 TJ GALINDO [address] [place] [address], [address], [facility] 5 11:28:06 Uncomplic ated severe persisten t asthma 603762284 Active 2024 TJ GALINDO [address] [place] [address], [address], [facility] 5 11:28:29 Mild depressio n 228222278 Active 2024 TJ GALINDO [address] [place] [address], [address], [facility] 5 14:52:09 Body mass index 30+ - obesity 407556636 Active 2024 TJ GALINDO [address] [place] [address], [address], [facility] 14:41:22 Adult attention deficit hyperacti vity disorder 470232684 Active 2024 TJ GALINDO [address] [place] [address], [address], [facility] 5 14:53:06 Aversion to food or drink 097021959 Active 2024 TJ GALINDO [address] [place] [address], [address], [facility] 5 15:01:49 Closed fracture of right ankle 599337264271 90497 Active 2024 TJ GALINDO [address] [place] [address], [address], [facility] 14:56:55 Problem Notes None recorded. Procedures Surgical History Date Name Laterality Status Provider Name and Address Organization Details Recorded Time 995 Cholecystectomy completed Juana Quinonez NP, [place] [address] [place] [address], [address], [facility] 12/29/2017 11:47:57 985 Remove tonsils and adenoids completed Juana Quinonez NP, [place] [address] [place] [address], [address], [facility] 12/29/2017 11:47:40 Imaging Results None recorded. Procedure Notes None recorded. Medical Equipment None Reported. Allergies Allergen ID Allergen Name Allergen Category Reaction Reaction Severity Criticality Documentation Date Start Date Code Code System Note Provider Name and Address Organization Details Recorded Time 8527 Product containin g 3-hydroxy -3-methyl glutaryl- coenzyme A reductase inhibitor (product) medicatio n Not available Not available Not available 08/06/2024 94959 009 SNOMED TJ GALINDO [address] [place], [address], [facility] 10:49:35 Medications Name Sig Start Date Stop Date Status Note LastModified by Organization Details LastModified Time Prescriptio n - Prior Authorizati on Request 03/30 completed Not Available Not Available Not Available celecoxib 200 mg capsule TAKE 1 CAPSULE ORALLY 2 TIMES A DAY NEEDED FOR PAIN 08/06 completed Not Available Not Available Not [...] Not Available Not Available Not Avai lable gabapentin 400 mg capsule Take 1 capsule 3 times a day by oral route as directed [...] Available Not Available buspirone 10 mg tablet TAKE ONE TABLET BY MOUTH TWICE A DAY DIRECTED active Not Available Not Available No t Available clotrimazol e-betametha sone 1 %-0.05 % topical [...] Available Not Available gabapentin 300 mg capsule TAKE ONE CAPSULE BY MOUTH THREE TIMES A DAY active Not Available Not Available No t Available diclofenac sodium 75 mg tablet,ayan yed release Take 1 tablet twice a day by oral route with meal(s) for 30 days. 2024 active Not Available Not Available Not Avai lable montelukast 10 mg tablet TAKE ONE TABLET [...] tablet TAKE ONE TABLET BY MOUTH EVERY 4 HOURS NEEDED FOR PAIN FOR 7 DAYS active Not Available Not [...] Updated DateTime 5 165.74 cm 32 kg/m2 68668.9 2 g 64 /min 98 % 98 % 128/86 mm[Hg] Jolene Ang [facility] 5 14:18:16 Date Recorded Body height Body mass index (BMI) Body weight Heart rate Oxygen saturation Oxygen saturation in Arterial blood by Pulse oximetry Systolic And Diastolic Provider Name and Address Organization Details Last Updated DateTime 5 165.74 cm 31 kg/m2 21931.3 7 g 80 /min 98 % 98 % 128/80 mm[Hg] Stephanie Boykin [facility] 5 14:32:05 Date Recorded Body height Body mass index (BMI) Body weight Heart rate Oxygen saturation Oxygen saturation in Arterial blood by Pulse oximetry Systolic And Diastolic Provider Name and Address Organization Details Last Updated DateTime 5 165.74 cm 30.1 kg/m2 90441.8 1 g 79 /min 97 % 97 % 128/80 mm[Hg] Stephanie Boykin [facility] 5 14:11:28 Date Recorded Body height Oxygen saturation Oxygen saturation in Arterial blood by Pulse oximetry Heart rate Systolic And Diastolic Provider Name and Address Organization Details Last Updated DateTime 5 165.74 cm 98 % 98 % 74 /min 110/72 mm[Hg] ANNIKA HESTER [facility] 5 10:24:03 Social History Question Answer Notes LastModified by Organizat ion Details LastModified Time Tobacco Smoking Status Never Smoker Not Available [facility] 07/22/2020 03:36:24 What Was The Date Of Your Most Recent Tobacco Screening? 08/06/2025 [email or web address] Information not available 08/06/2025 Sex: Unknown Functional Status Question Answer Note [...] vilma Not available 2017 11:49:18 Mother Obesity [email or web address] Not available 12/29/2017 11:49:29 Mother Migraine [email or web address] Not available 12/29/2017 11:49:40 Medical History No medical history recorded. Gynecological HistoryNo gynecological history recorded. Obstetrics History GPAL:G 0 P 0 0 0 0 Immunizations Vaccine Type Date Status Note Provider Nam e and Address Organization Details Recorded Time COVID-19, mRNA, LNP-S, PF, 30 mcg/0.3 mL dose 1 completed Gloria valdivia [facility] 07/10/2021 15:54:36 COVID-19, mRNA, LNP-S, PF, 30 mcg/0.3 mL dose 1 completed Gloria valdivia [facility] 07/10/2021 15:54:42 COVID-19, mRNA, LNP-S, PF, 30 mcg/0.3 mL dose 1 completed Gloria valdivia [facility] 07/12/2022 08:11:18 Influenza, split virus, quadrivalent, preservative 0 completed Gloria valdivia [facility] 07/12/2022 08:11:31 Influenza, split virus, quadrivalent, preservative 1 completed Gloria valdivia [facility] 07/12/2022 08:11:38 Past Encounters Encounter ID Performer Location Encounter Start Date Encounter Closed Date Diagnosis/Indication Diagnosis SNOMED-CT Code Diagnosis ICD10 Code Diagnosis IMO Codes Diagnosis Note [id number] Ankur Massey [facility] [address] [facility],[place] [address] 12/30/2017 10:20:38 12/30/2017 12:29:00 Dyspnea on exertion 89188551 R06.09 Iron defic iency anemia 36689803 D50.9 provided with list of foods high in iron, explained importance Left lower quadrant pain 787221466 R10.32 Asthma 650374829 J45.90 9 follow, continue with inhalers Fatigue 79667210 R53.83 ? r/t fe deficiency anemia, follow Gastroesop hageal reflux disease 600836653 K21.9 negative UGI, [id number] Ankur Massey DO [facility] [address] [facility],[place] [address] 01/09/2018 09:28:30 01/09/2018 10:22:38 Acute pelvic pain 533586227 R10.2 abnormal u/s awaiting pump oiler consult Iron defic iency anemia 38547403 D50.9 reiterated importance Dyspnea on exertion 6084 5006 R06.09 neg. CXR, ? r/t anemia, follow Gastroesop hageal reflux disease 701742176 K21.9 negative UGI, but symptomati c Asthma 541009740 J45.90 9 follow, continue with inhalers Depressive disorder 3548 9007 F32.89 continue sertraline [id number] Ankur Massey [facility] [address],[place] [address] 02/07/2018 11:24:21 02/07/2018 12:27:12 Asthmatic bronchitis 242605055 J45.909 Moderate p ersistent asthma 066905252 J45.40 call if no better Iron defic iency anemia 48921084 D50.9 follow after pump oiler /lupron, had colonoscop y 5 years ago Dyspnea on exertion 6084 5006 R06.09 mildly improved, follow [id number] Ankur Massey DO [facility] [address] [facility],[place] [address] 02/20/2018 10:55:17 02/20/2018 17:25:32 Acute bronchitis 34862880 J20.9 resolved, will fax letter to surgeon, unable to locate in system [id number] Ankur Massey DO [facility] [address] [facility],[place] [address] 09/22/2018 13:24:58 09/22/2018 13:56:08 Asthma 526815890 J45.909 on advair on proair History of depression 16 0853982 Z86.59 on sertraline Acid reflux 134382325 K2 1.9 quiet without meds Acute sinusitis 14546413 J01.90 favor bacterial infection [id number] Ankur Massey [facility] [address] [facility],[place] [address] 01/15/2019 13:50:42 01/15/2019 16:24:14 Psoriasis 6429712 L40.9 Pain of left hand 936741 7598 77712 M79.642 Pain of right hand 05039 16181 13815 M79.641 Asthma 432203493 J45.90 9 stable, continue with inhalers Acid reflux 221684388 K2 1.9 controlled [id number] Ankur Massey [facility] [address] [facility],[place] [address] 12/03/2019 14:24:44 12/03/2019 15:04:40 Asthma 115322340 J45.909 stable Chronic uveitis 53654458 2 H20.12 pt has had painful, itchy, injected left eye intermitte ntly since May. has a hx of psoriasis which is being treated son has a hx of uveitis [id number] Ankur Massey [facility] [address] [facility],[place] [address] 04/02/2020 11:01:48 04/02/2020 11:47:29 Asthma 957725330 J45.909 stable Chronic sinusitis 615740 00 J32.9 recommende d OTC flonase as well to help open up nasal passages and sinus and reduce inflammati on along with a longer course of abx most likely started as allergies and developed into sinus infection [id number] Ankur Massey [facility] [address] [facility],[place] [address] 04/23/2020 14:23:31 04/23/2020 15:05:08 Chronic sinusitis 50572903 J32.[address] sinuses to see if there is any issue there Dyspnea 318929378 R06.00 will do an XR to r/o possible pulmonary involvemen t Chronic uveitis 90440636 2 H20.12 will work her up for any underlying conditions that may be contributi ng to her on going problems Fatigue 30240676 R53.83 could be just to the illness as she has been sick for almost a month now [id number] Ankur Massey [facility] [address] [facility], [place] [address] 07/13/2021 09:36:22 07/13/2021 10:29:03 Screening colonoscopy 706851695 Z12.11 will submit referral Insomnia 245681859 G47.0 9 will trial trazodone Asthma 228976556 J45.20 stable History of depression 16 4955441 Z86.59 switch medication given taper instructio ns Hyperlipidemia 77568389 E78.2 will trial low dose of pravastati n Anxiety 34046265 F41.1 will trial bupropion [id number] Ankur Massey [facility] [address] [facility], [place] [address] 07/12/2022 10:25:43 07/12/2022 13:31:01 Asthma 335664581 J45.20 worseningw ill switch to ventolin since pro air is off market Pain of le ft hip joint 5534734686 13026 M25.552 will trial a topicalwil l let me know if she would like to proceed with the MRI Candidiasis of skin 4988 3006 B37.2 will f/u with topical for flare ups [id number] Ankur Massey [facility] [address] [facility],[place] [address] 05/27/2023 11:39:06 05/27/2023 14:40:06 Asthma 836062549 J45.50 worseningw ill switch to ventolin since pro air is off market History of depression 16 9937502 Z86.59 switch medication given taper instructio ns Pain of le ft hip joint 8263849097 21385 M25.552 will trial a topicalwil l let me know if she would like to proceed with the MRI Hyperlipidemia 70021353 E78.[address] up with CT scan calcium score Screening colonoscopy 44 1800826 Z12.11 will submit referral again Insomnia 417310561 G47.0 9 no effect with trazodone Chronic back pain 185447 002 G89.29 will set up with plastic surgeon for consult with plastic surgeon [id number] Ankur Massey [facility] [address] [place] [address] 02/20/2024 13:29:51 02/20/2024 15:12:06 Hyperlipidemia 61113485 E78.2 no statins Asthma 932295540 J45.50 worseningw ill switch to ventolin since pro air is off market Body mass index 30+ - obesity 924157133 Z68.34 agreed to start on phentermin e for the weight loss since diet and exercise alone have not helped Depressive disorder 3548 9007 F32.0 will set up with venlafaxin e for the depression less weight gain Thoracic back pain 22705 8004 M54.6 agreed to PT referral for eval and treatment plan Depression screening 171 402918 Z13.[address] [id number] Ankur Massey [facility] [address] [place] [address] 03/30/2024 09:52:37 03/30/2024 15:00:34 Depression screening 655874069 Z13.[address] Asthma 701280975 J45.50 worseningw ill switch to ventolin since pro air is off market Irritable bowel syndrome 02699563 K58.2 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 Insomnia 761232068 G47.0 9 will continue ambien [id number] Ankur Massey [facility] [address] [place] [address] 06/01/2024 09:50:39 06/01/2024 10:28:03 Asthma 876920836 J45.50 stable Polycystic ovary syndrome of bilateral ovaries 812853554 E28.2 stable Body mass index 30+ - obesity 615677422 Z68.34 increased dose of phentermin e and added topimax for combo treatment Insomnia 345846861 G47.0 9 will continue ambienno dose adjustment [id number] Ankur Massey [facility] [address] [facility], [place] [address] 08/06/2024 08:50:32 08/06/2024 11:21:52 Body mass index 30+ - obesity 979182930 Z68.34 increased dose of topimax for combo treatment Asthma 949440281 J45.50 stable Depressive disorder 3548 9007 F32.0 stable Exacerbati on of mild persistent asthma 225317248 J45.31 will start on short pred burst for residual inflammati on Hyperlipidemia 52319099 E78.2 no statins Thyroid nodule 624952808 E04.1 routine recheck [id number] Ankur Massey [facility] [address] [facility], [place] [address] 01/23/2025 10:11:55 01/23/2025 11:24:06 Body mass index 30+ - obesity 568000627 Z68.33 [id number] GERD, HLD, IFG, possibly sleep apnea [id number] Ankur Massey [facility] [address] [facility], [place] [address] 02/26/2025 10:42:20 02/26/2025 15:03:27 Depression screening 906218133 Z13.[address] Body mass index 30+ - obesity 232986056 Z68.33 GERD, HLD, IFG, possibly sleep apneaincre ase to the 5 mg and then 7.5 mg after the 4 weeksis losing inches from her waist, arms and legs that she has been noticing Slow trans it constipation 66045645 K59.01 8838 is holding on doing a CT scan w/wothinks after discussion she will call them back and go forward with the CT scan Uncomplica ny severe persistent asthma 537690129 J45.50 9073538 stable [id number] Ankur Massey [facility] [address] [facility], [place] [address] 03/27/2025 10:19:36 03/27/2025 12:04:46 Polycystic ovary syndrome 188847766 E28.2 stable Slow trans it constipation 53378670 K59.01 8838 is holding on doing a CT scan w/woshaniqueks after discussion she will call them back and go forward with the CT scan Depression screening 171 933514 Z13.[address] Body mass index 30+ - obesity 859694904 Z68.33 continue on the medication , increase the 7.5 mg Nausea 255724734 R11.0 will set up with refills [id number] [facility] [address] [facility], [place] [address] 04/26/2025 14:09:19 04/26/2025 15:12:33 Depression screening 067106095 Z13.[address] Body mass index 30+ - obesity 941104499 Z68.33 continue on the medication , increase the 7.5 mg Insomnia 176852390 G47.0 9 will continue ambienno dose adjustment Mild depression 34707244 3 F32.A 377387 stable [id number] [facility] [address], [place] [address] 06/04/2025 14:26:37 06/05/2025 09:30:37 Depression screening 080040217 Z13.[address] Body mass index 30+ - obesity 048787495 E66.9 4993725 stable Aversion t o food or drink 305563096 R63.39 1887026 Adult atte ntion deficit hyperactivity disorder 775422440 F90.9 563591 Nausea 293510157 R11.0 will set up with refills [id number] [facility] [address] [facility], [place] [address] 07/02/2025 14:00:27 07/02/2025 15:47:16 Depression screening 493256032 Z13.[address] Body mass index 30+ - obesity 120139810 E66.9 stable Adult atte ntion deficit hyperactivity disorder 766679398 F90.9 329439 Mild depression 54892268 3 F32.A stable [id number] Ankur Massey [facility] [address] [facility],[place] [address] 07/10/2025 12:24:52 07/12/2025 09:49:42 Closed fracture of right ankle 8282410317 1645374 S82.891A 1991188 refillswit ch to ibu 800 mg TID [id number] Ankur Massey [facility] [address] [facility],[place] [address] 08/06/2025 10:12:15 08/06/2025 12:05:28 Depression screening 764927210 Z13.31 [address]cont on buspar Closed fra cture of right ankle 3119443831 4973547 S82.891A closed trimalleol ar fracture of right ankle adjust to 400 mg TID of gabapentin switch out from celecoxib 200 mg to diclofenac 75 mg for inflammati onthe patient does Body mass index 30+ - obesity 511817878 E66.9 stable Health Concerns Section Related Observation LastModified by Organization Detai ls LastModified Time None Recorded Concern Status LastModified by Organization Details LastModified Time None Recorded Advance Directives Directive None Recorded Payers Insurance Date Sequence Insurance Name Policy Number Policy Vaughn Covered Member ID Vaughn Member ID Guarantor Name 08/06/2025 1 [facility] [id number] Ree Gleason [id number] Ree Farah 08/06/2025 1 [facility] [place] [place] Ree Farah [id number] Ree Farah Notes Date Note Type Note Provider Name and Address Organization Details Recorded Time 5 text/html ROS as noted in the HPI medication f/u the patient is down 13 pounds from original dose, starting at 207 lbs to 194 lbswill increase with to the 10 mg dosage, patient is tolerating okay, will continue to monitor progress with weight loss and if she develops symptoms is persistent with excercise and diet at the same time she is on the medicationsleeping better, snoring has improved according to patient the patient will add buspirone for depressive symptoms, mild currently but trying to intervene sooner rather than later, notes she does get seasonal depression hasn't done well with SSRI's SNRI's in the past so we discussed alternatives and she agreed to the buspirone trial, low starting dose to see how well she tolerates it the patient sleep is doing okay, will continue ambien as neededshe has a hard time staying asleep which is where the ambien is effective for her overall continues to improve with continued weight loss will call with update about the buspar if there is any issues sooner than her next appt recommended trying the medication for about 2 weeks to see if it is beneficialwill also update me at her follow up with progress will f/u in a month no other questions or concerns at this time, all questions answered TJ GALINDO [address] [place], [address], [facility] 08/02/2025 13:14:18 5 text/html ROS as noted in the [...] will seevs ADHD treatment TJ GALINDO [address] [place], [address], [facility] 06/04/2025 15:07:14 5 text/html ROS as noted in the HPI f/u weight The patient presents to the office for evaluation and assessment for concerns of ADHD symptoms DSM-5 Criteria of ADHD to help diagnosis adults: A. A persistent pattern of inattention and/or hyperactivity-impulsivi ty that interferes with functioning or development, as [...] on current dose of zepbound TJ GALINDO [address] [place] [address], [address], [facility] 07/02/2025 14:40:16 5 text/html ROS [...] meds at this time TJ GALINDO [address] [place], [address], [facility] 07/10/2025 15:01:27 5 text/html ROS as noted in the HPI 1 mos f/u the patient reports that she is still having difficulties s/p ORIF for closed trimalleolar fracture of right anklehaving significant amount of pain still, ?cast too lose, the swelling came way down and it could be having more movement than it should doesn't have f/u with ortho until 08/29; they haven't imaged herclosed trimalleolar fracture of right ankle > seeing Dr. Wray she did have a complication with the wraps from the ER, they wrapped her too tightly for the swelling, caused significant blistering along the leg the patient has OT coming in once to twice a week she hasn't been sleeping well due to the discomfort, anxious and upset about the prolonged recovery she has been falling too, very difficult with her balance has put a hold on the adderall, hasn't needed it since she hasn't been at workbut needs stronger dose and/or afternoon dose will adjust up her gabapentin to 400 mg TID > no side effects; does help with the pain TJ GALINDO [address] [place], [address], [facility] 08/06/2025 11:19:38 OBGyn Episode No OBEpisode recorded.
--- OUTSIDE RECORDS SUMMARY | 2025-08-07 12:59 | XMS_ITS | Continuity of Care Document ---
Author Organization [facility], [facility] Address [address] [facility] [address] [place] [address] Assessment No assessment recorded. Plan of Treatment Reminders Order Date Submit Date Provider Last Modified By Organization Details Last Modified Time Details Appointments FOLLOW UP 15 2024 10:15A M TJ GALINDO Not available Not available Not available Lab None recorded. Referral None recorded. Procedures None recorded. Surgeries None recorded. Imaging None recorded. Medication Orders gabapenti n 400 mg capsule 2024 [facility], [address] [place], [address], 08/06/2025 10:53:31 diclofena c sodium 75 mg tablet,de layed release 2024 [facility], [address] [place], [address], 08/06/2025 10:53:31 Zepbound 12.5 mg/0.5 mL subcutane ous pen injector 2024 [facility] [employer] [facility], [address] [place], [address], 08/06/2025 11:17:08 Patient TargetsNo targets recorded. Patient InstructionsNo instructions recorded. Reason for Referral None Reported. Results Created Date Observation Date Name Description Value Unit Range Abnormal Flag Note LastModifiedBy Organization Detail LastModifiedTime 07/08/20 25 07/08/2025 XR, knee No observ ation record ed. [email or web address] [facility] (Medical Records) [address] [facility] [place], [address], 07/08/2025 13:28:46 07/08/2007/08/2025 XR, ankle No observ ation record ed. [email or web address] (Medical Records) [address] [place], [address], 07/08/2025 13:28:57 07/08/2007/08/2025 XR, ankle No observ ation record ed. [email or web address] (Medical Records) [address] [place], [address], 07/08/2025 13:29:09 07/12/2007/11/2025 XR, ankle No observ ation record ed. [email or web address] [address] [place], [address], 07/12/2025 10:37:53 07/17/2007/17/2025 fluor oscop y (PROC ) No observ ation record ed. [address] (Medical Records) [address] [place], [address], 07/17/2025 16:25:49 07/17/2007/17/2025 fluor oscop y (PROC ) No observ ation record ed. [address] (Medical Records) [address] [place], [address], 07/17/2025 16:26:13 Result Notes None recorded. Problems Name Problem SNOMED Code Status Onset Date Resolution Date Notes Provider Name and Address Organization Details Recorded Time Asthma 502448759 Active 2017 [facility] 14:21:55 History of depressio n 431588919 Active 2017 [facility] 14:22:01 Acid reflux 800750520 Active 2017 [facility] 8 14:22:15 Psoriasis 6704094 Active 2017 Juana Quinonez NP, S [address] [place] [address], [address], [facility] 8 11:45:40 Thyroid nodule 118037972 Active 2017 Juana Quinonez NP, S [address] [place] [address], [address], [facility] 8 11:45:50 Pain of left hip joint 817828306454 100 Active 2021 TJ GALINDO [address] [place] [address], [address], [facility] 2 10:39:06 Candidias is of skin 25975561 Active 2021 TJ GALINDO [address] [place] [address], [address], [facility] 2 10:40:16 Polycysti c ovary syndrome 266663242 Active 2022 TJ GALINDO [address] [place] [address], [address], [facility] 3 12:10:08 Hyperlipi demia 65860036 Active 2022 TJ GALINDO [address] [place] [address], [address], [facility] 3 12:10:23 Insomnia 279780999 Active 2022 TJ GALINDO [address] [place] [address], [address], [facility] 3 12:17:53 Chronic back pain 802823347 Active 2022 TJ GALINDO [address] [place] [address], [address], [facility] 3 12:20:10 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 249655230 Active 2022 TJ GALINDO [address] [place], [address], [facility] 3 14:05:44 Depressiv e disorder 69739068 Active 2023 TJ AGLINDO [address] [place], [address], [facility] 4 14:09:02 Thoracic back pain 744778130 Active 2023 TJ GALINDO [address] [place] [address], [address], [facility] 4 14:11:40 Irritable bowel syndrome 83817590 Active 2023 TJ GALINDO [address] [place] [address], [address], [facility] 4 10:13:52 Exacerbat ion of mild persisten t asthma 623378783 Active 2023 TJ GALINDO [address] [place] [address], [address], [facility] 4 10:43:51 Nausea 738357718 Active 2024 Ankur Massey DO [address] [place] [address], [address], [facility] 5 22:59:03 Slow transit constipat ion 47659991 Active 2024 TJ GALINDO [address] [place] [address], [address], [facility] 5 11:28:06 Uncomplic ated severe persisten t asthma 053034805 Active 2024 TJ GALINDO [address] [place] [address], [address], [facility] 5 11:28:29 Mild depressio n 752257900 Active 2024 TJ GALINDO [address] [place] [address], [address], [facility] 5 14:52:09 Body mass index 30+ - obesity 874802846 Active 2024 TJ GALINDO [address] [place] [address], [address], [facility] 5 14:41:22 Adult attention deficit hyperacti vity disorder 662940870 Active 2024 TJ GALINDO [address] [place] [address], [address], [facility] 5 14:53:06 Aversion to food or drink 597598800 Active 2024 TJ GALINDO [address] [place] [address], [address], [facility] 5 15:01:49 Closed fracture of right ankle 920899017513 89320 Active 2024 TJ GALINDO [address] [place] [address], [address], [facility] 14:56:55 Problem Notes None recorded. Procedures Surgical History Date Name Laterality Status Provider Name and Address Organization Details Recorded Time 995 Cholecystectomy completed Juana Quinonez NP, Ilan [address] [place] [address], [address], [facility] 12/29/2017 11:47:57 985 Remove tonsils and adenoids completed Juana Quionnez NP, Ilan [address] [place] [address], [address], [facility] 12/29/2017 11:47:40 Imaging Results None recorded. Procedure Notes None recorded. Medical Equipment None Reported. Allergies Allergen ID Allergen Name Allergen Category Reaction Reaction Severity Criticality Documentation Date Start Date Code Code System Note Provider Name and Address Organization Details Recorded Time 1613 Product containin g 3-hydroxy -3-methyl glutaryl- coenzyme A reductase inhibitor (product) medicatio n Not available Not available Not available 08/06/2024 44710 009 SNOMED TJ GALINDO [address] [place] [address], [address], [facility] 10:49:35 Medications Name Sig Start [...] Available Not Available Not Available amoxicillin 875 mg-roldan m clavulanate 125 mg tablet Take 1 [...] BY [facility] T AT [facility]. 02/19 completed Not Available Not Available [...] Not Available Vitals Date Recorded Body height Oxygen saturation Oxygen saturation in Arterial blood by Pulse oximetry Heart rate Systolic And Diastolic Provider Name and Address Organization Details Last Updated DateTime 5 165.74 cm 98 % 98 % 74 /min 110/72 mm[Hg] ANNIKA HESTER [facility] 5 10:24:03 Social History Question [...] mcg/0.3 mL dose 1 completed Gloria valdivia [facility] 07/10/2021 15:54:36 COVID-19, mRNA, LNP-S, PF, 30 mcg/0.3 mL dose 1 completed Gloria valdivia [facility] 07/10/2021 15:54:42 COVID-19, mRNA, LNP-S, PF, 30 mcg/0.3 mL dose 1 completed Gloria valdivia [facility] 07/12/2022 08:11:18 Influenza, split virus, quadrivalent, preservative 0 completed Gloria valdivia [facility] 07/12/2022 08:11:31 Influenza, split virus, quadrivalent, preservative completed Gloria Kim [facility] 07/12/2022 08:11:38 Past Encounters Encounter ID Performer Location Encounter Start Date Encounter Closed Date Diagnosis/Indication Diagnosis SNOMED-CT Code Diagnosis ICD10 Code Diagnosis IMO Codes Diagnosis Note [id number] Ankur Jose Massey [facility] [address] [facility] [address] 07/10/2025 12:24:52 07/12/2025 09:49:42 Closed fracture of right ankle 0466822255 7925478 S82.891A 6986739 refillswit ch to ibu 800 mg TID [id number] Ankur MorfinJhonatan Massey [facility] [address] [facility] [address] 08/06/2025 10:12:15 08/06/2025 12:05:28 Depression screening 998739056 Z13.31 [address] Closed fra cture of right ankle 6480065186 0874409 S82.891A closed trimalleol ar fracture of right ankle adjust to 400 mg TID of gabapentin switch out from celecoxib 200 mg to diclofenac 75 mg for inflammati onthe patient does Body mass index 30+ - obesity 560989136 E66.9 stable Health Concerns Section Related Observation LastModified by Organization Detai ls LastModified Time None Recorded Concern Status LastModified by Organization Details LastModified Time None Recorded Payers Encounter Date Sequence Insurance Name Policy Number Policy Vaughn Covered Member ID Vaughn Member ID Guarantor Name 08/06/2025 1 [facility] Ree Farah [id number] Ree Farah Notes Date Note Type Note Provider Name a me Address Organization Details Recorded Time 08/06/2025 text/html ROS as noted in the HPI [...] does help with the pain TJ GALINDO [address] [place] [address], [place], [address], [facility] 08/06/2025 11:19:38 OBGyn Episode No OBEpisode recorded.
== END 2025-08-06 16:11 | disposition home or self-care (01) ==
LOC: HO.HOS 14:56
PROVIDERS: Visit Provider Physician Assistant
DX: Z47.89 Encounter for other orthopedic aftercare (principal); Z87.81 Personal history of (healed) traumatic fracture
CPT/HCPCS: 29405; 99024

== ENCOUNTER → 2025-08-06 14:55 | Outpatient (BNVA) | payer OTHER, SELFPAY | PROVIDERS: Visit Provider Physician Assistant | DX: Z47.89 Encounter for other orthopedic aftercare (principal); Z98.890 Other specified postprocedural states | CPT/HCPCS: 29405 ==

== ENCOUNTER 2025-08-13 09:42 | Outpatient (AMB) | payer OTHER, SELFPAY ==
--- NOTE | 2025-08-13 10:01 | A.OFFVIS_ITS ---
Intake Visit Reasons: Cast change, RT ankle ORIF 07/17/25 NE Intake Note: Ree is a 55 year old female who presents today for a cast change status post right ankle ORIF done on 07/17/25 Dr. Wray. Patient reports having tightness around her ankle, heel and on top of her foot. Allergies No Known Allergies Allergy (Verified 08/13/25 10:19) HPI HPI Cast change, RT ankle ORIF 07/17/25 NE: Details: Ms. Farah is a 55-year-old female who presents to the office today for a cast change status post right ankle ORIF performed on 07/17/2025. Patient states that the cast felt too tight. [facility] Medical History IBS (irritable colon syndrome) Psoriatic arthritis Endometriosis of abdomen Arthritis High cholesterol Asthma Surgical History Hx of section Hx of adenoidectomy Hx of tonsillectomy Hx laparoscopic cholecystectomy Hx of hysterectomy Hx of colonoscopy History of esophagogastroduodenoscopy (EGD) Social History Household Members: Family Household Members Other:: two adult sons Housing: House Are you a primary career and transition teacher to a significant other at home: No Do you presently have visiting nurse or other home services: No Patient Tobacco Use Status: Never used Tobacco service: No Current occupational status: employed 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 Steri-Strips remain intact. No surrounding erythema or drainage. No signs of infection. Mild edema located on both the medial and lateral malleolus. Skin is intact over the area in which the patient reports burning along the Achilles tendon. No open wounds or pressure sores present. NVI. Psych Appearance: grossly normal Mental Status: mental status grossly normal Attitude: cooperative Office Procedures Casting/Splints 75234-Poprt Leg Cast Application Procedure code (CPT) selection complete Assessment & Plan Assessment & Plan (1) Status post ORIF of fracture of ankle: Code(s): Z98.890 - Other specified postprocedural states; Z87.81 - Personal history of (healed) traumatic fracture Category: Surgical Plan Ms. Farah is a 55-year-old female who presents to the office today for a cast change status post right ankle ORIF performed on 07/17/2025. Patient states that the cast became loose and was rubbing on her skin. Additionally, she reports a burning sensation along the Achilles. She saw her primary care doctor today who increased her gabapentin to assist with this burning sensation. She will be placed into a short-leg cast today and we will take extra precaution and padding along this area. Patient was educated on cast maintenance and instructed to keep the cast clean, dry, and intact. However, should the cast become wet, dirty, damaged, or there are any concerns please call the office immediately for a cast change. She will follow up at her normally scheduled follow up appointment, sooner if needed. Coding Level of Care Code Global (75130) Diagnoses Status post ORIF of fracture of ankle Z98.890; Z87.81 CPT Codes Casting - CPT: 34058-Mrwsm Leg Cast Application ([id number])
--- OUTSIDE RECORDS SUMMARY | 2025-08-13 11:18 | XMS_ITS | Clinical Summary ---
Author Organization [facility] Address [address] [address] Phone Care Team Providers Care Perforator Operator Name Role Phone Ankur Massey DO Primary Care Provider [phone] Ankur Massey DO Unavailable Encounters Date Type Department Care Team Description 07/18/2025 Orders Only [facility] [address] [place] [address] Homehealth, Interface ProviderMD from Last 3 Months [...] file Medical Devices Not on file Insurance [facility] EPO [facility] POS [facility]PO [facility]PO [facility] EPO Care Teams Perforator Operator Relationship Specialty Start Date End Date Ankur Massey DO [address] [place] [address] PCP - General 07/18/25 Ankur Massey DO [address] [place] [address] [email or web address] Insurance Assigned Provider 08/03/25 Additional Source Comments The information contained in this document represents components of the legal health record. It is not the complete legal health record.[facility]
--- OUTSIDE RECORDS SUMMARY | 2025-08-13 11:18 | XMS_ITS | Continuity of Care Document ---
Author Organization [facility] Address [address] [place] [address] [place] [address] Assessment No assessment recorded. Plan of Treatment Reminders Order Date Submit Date Provider Last Modified By Organization Details Last Modified Time Details Appointments FOLLOW UP 15 2024 10:15A M TJ GALINDO Not available Not available Not available Lab None recorded. Referral None recorded. Procedures None recorded. Surgeries None recorded. Imaging None recorded. Medication Orders oxycodone 5 mg tablet 2024 025 [employer] [facility] [address] [place], [address], 07/10/2025 14:58:20 Patient TargetsNo targets recorded. Patient InstructionsNo instructions recorded. Reason for Referral None Reported. Results Created Date Observation Date Name Description Value Unit Range Abnormal Flag Note LastModifiedBy Organization Detail LastModifiedTime 07/08/2007/08/2025 XR, knee No observ ation record ed. [email or web address] [facility] (Medical Records) [address] [place] [address], [address], 07/08/2025 13:28:46 07/08/2007/08/2025 XR, ankle No observ ation record ed. [email or web address] [facility] (Medical Records) [address] [place] [address], [address], 07/08/2025 13:28:57 07/08/2007/08/2025 XR, ankle No observ ation record ed. [email or web address] [facility] (Medical Records) [address] [facility] [place], [address], 07/08/2025 13:29:09 07/12/2007/11/2025 XR, ankle No observ ation record ed. [email or web address] [address] [place], [address], 07/12/2025 10:37:53 07/17/2007/17/2025 fluor oscop y (PROC ) No observ ation record ed. [address] (Medical Records) [address] [place], [address], 07/17/2025 16:25:49 07/17/2007/17/2025 fluor oscop y (PROC ) No observ ation record ed. [address] (Medical Records) [address] [place], [address], 07/17/2025 16:26:13 Result Notes None recorded. Problems Name Problem SNOMED Code Status Onset Date Resolution Date Notes Provider Name and Address Organization Details Recorded Time Asthma 986996633 Active 2017 Vannesa valdivia [facility] 8 14:21:55 History of depressio n 922323904 Active 2017 Vannesa valdivia [facility] 8 14:22:01 Acid reflux 446950788 Active 2017 Vannesa valdivia [facility] 8 14:22:15 Psoriasis 2974412 Active 2017 Juana Quinonez NP, S [address] [place], [address], [facility] 8 11:45:40 Thyroid nodule 433671850 Active 2017 Juana Quinonez NP, S [address] [place], [address], [facility] 8 11:45:50 Pain of left hip joint 630752295313 100 Active 2021 TJ GALINDO [address] [place] [address], [address], [facility] 2 10:39:06 Candidias is of skin 37454609 Active 2021 TJ GALINDO [address] [place] [address], [address], [facility] 2 10:40:16 Polycysti c ovary syndrome 347580308 Active 2022 TJ GALINDO [address] [place] [address], [address], [facility] 3 12:10:08 Hyperlipi demia 89913921 Active 2022 TJ GALINDO [address] [place] [address], [address], [facility] 3 12:10:23 Insomnia 250484094 Active 2022 TJ GALINDO [address] [place] [address], [address], [facility] 3 12:17:53 Chronic back pain 489944933 Active 2022 TJ GALINDO [address] [place] [address], [address], 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 3 14:05:44 Depressiv e disorder 60407237 Active 2023 TJ GALINDO [address] [place] [address], [address], [facility] 4 14:09:02 Thoracic back pain 196971978 Active 2023 TJ GALINDO [address] [place] [address], [address], [facility] 4 14:11:40 Irritable bowel syndrome 14546661 Active 2023 TJ GALINDO [address] [place] [address], [address], [facility] Internal [facility] 4 10:13:52 Exacerbat ion of mild persisten t asthma 456117253 Active 2023 TJ GALINDO [address] [place] [address], [address], [facility] 4 10:43:51 Nausea 180962936 Active 2024 Ankur Massey DO [address] [place] [address], [address], [facility] 5 22:59:03 Slow transit constipat ion 07035985 Active 2024 TJ GALINDO [address] [place] [address], [address], [facility] Internal [facility] 5 11:28:06 Uncomplic ated severe persisten t asthma 282385605 Active 2024 TJ GALINDO [address] [place] [address], [address], [facility] 5 11:28:29 Mild depressio n 837801824 Active 2024 TJ GALINDO [address] [place] [address], [address], [facility] 5 14:52:09 Body mass index 30+ - obesity 698996368 Active 2024 TJ GALINDO [address] [place] [address], [address], [facility] Internal [facility] 5 14:41:22 Adult attention deficit hyperacti vity disorder 845278795 Active 2024 TJ GALINDO [address] [place] [address], [address], [facility] 5 14:53:06 Aversion to food or drink 377523326 Active 2024 TJ GALINDO [address] [place], [address], [facility] Internal [facility] 5 15:01:49 Closed fracture of right ankle 490047623549 87208 Active 2024 TJ GALINDO [address] [place], [address], [facility] Internal [facility] 5 14:56:55 Problem Notes None recorded. Procedures Surgical History Date Name Laterality Status Provider Name and Address Organization Details Recorded Time 995 Cholecystectomy completed Juana Quinonez NP, S [address] [place] [address], [address], [facility] Internal [facility] 12/29/2017 11:47:57 985 Remove tonsils and adenoids completed Juana Quinonez NP, S [address] [place] [address], [address], [facility] Internal [facility] 12/29/2017 11:47:40 Imaging Results None recorded. Procedure Notes None recorded. Medical Equipment None Reported. Allergies Allergen ID Allergen Name Allergen Category Reaction Reaction Severity Criticality Documentation Date Start Date Code Code System Note Provider Name and Address Organization Details Recorded Time 8530 Product containin g 3-hydroxy -3-methyl glutaryl- coenzyme A reductase inhibitor (product) medicatio n Not available Not available Not available 08/06/2024 05997 009 SNOMED TJ GALINDO [address] [place], [address], [facility] Internal [facility] 4 10:49:35 Medications Name Sig Start [...] BY GASTROENT EROLOGY DEPARTMEN T AT [facility]. 02/19 completed Not Available Not Available Not [...] Tobacco Smoking Status Never Smoker Not Available [facility] 03:36:24 What Was The Date Of [...] Organization Details LastModified Time Father Hypercholest judy vilma Not available 2017 11:49:18 Mother Obesity [...] mcg/0.3 mL dose 1 completed Gloria valdivia [facility] 07/10/2021 15:54:36 COVID-19, mRNA, LNP-S, PF, 30 mcg/0.3 mL dose 1 completed Gloria valdivia [facility] 07/10/2021 15:54:42 COVID-19, mRNA, LNP-S, PF, 30 mcg/0.3 mL dose 1 completed Gloria valdivia [facility] 07/12/2022 08:11:18 Influenza, split virus, quadrivalent, preservative 0 completed Gloria valdivia [facility] 07/12/2022 08:11:31 Influenza, split virus, quadrivalent, preservative 1 completed Gloria valdivia [facility] 07/12/2022 08:11:38 Past Encounters Encounter ID Performer Location Encounter Start Date Encounter Closed Date Diagnosis/Indication Diagnosis SNOMED-CT Code Diagnosis ICD10 Code Diagnosis IMO Codes Diagnosis Note [id number] Ankur Massey [facility] [address] [facility], [place] [address] 07/02/2025 14:00:27 07/02/2025 15:47:16 Depression screening 367331287 Z13.[address] Body mass index 30+ - obesity 081509090 E66.9 stable Adult atte ntion deficit hyperactivity disorder 269994585 F90.9 557158 Mild depression 45623895 3 F32.A stable [id number] Ankur Massey [facility] [address] [facility] [place] [address] 07/10/2025 12:24:52 07/12/2025 09:49:42 Closed fracture of right ankle 7639272417 5307652 S82.891A 1975608 refillswit ch to ibu 800 mg TID Health Concerns Section Related Observation LastModified by Organization Detai ls LastModified Time None Recorded Concern Status LastModified by Organization Details LastModified Time None Recorded Payers Encounter Date Sequence Insurance Name Policy Number Policy Vaughn Covered Member ID Vaughn Member ID Guarantor Name 07/10/2025 1 [facility] [place] Ree Farah [id number] Ree Farah Notes Date Note Type Note Provider Name a nd Address Organization Details Recorded Time text/html ROS as noted in the HPI [...] pain meds at this time TJ GALINDO [address] [place] [address], [place], [address], [facility] 07/10/2025 15:01:27 OBGyn Episode No OBEpisode recorded.
--- OUTSIDE RECORDS SUMMARY | 2025-08-13 11:19 | XMS_ITS | Continuity of Care Document ---
Author Organization [facility], [facility] Address [address] [facility] [place] [address] [place] [address] Assessment No assessment recorded. Plan of Treatment Reminders Order Date Submit Date Provider Last Modified By Organization Details Last Modified Time Details Appointments FOLLOW UP 15 2024 10:15A M TJ GALINDO Not available Not available Not available Lab None recorded. Referral None recorded. Procedures None recorded. Surgeries None recorded. Imaging None recorded. Medication Orders buspirone 10 mg tablet 2024 [facility], [address] [place], [address], 07/02/2025 14:37:55 dextroamp hetamine- amphetami ne 10 mg tablet [email or web address] [address] [place], [address], 08/06/2025 11:02:36 Zepbound 12.5 mg/0.5 mL subcutane ous pen injector 2024 [facility], [address] [place], [address], 07/02/2025 14:27:09 Patient TargetsNo targets recorded. Patient InstructionsNo instructions recorded. Reason for Referral None Reported. Results Created Date Observation Date Name Description Value Unit Range Abnormal Flag Note LastModifiedBy Organization Detail LastModifiedTime 07/08/2007/08/2025 XR, knee No observ ation record ed. [email or web address] (Medical Records) [address] [place], [address], 07/08/2025 13:28:46 07/08/2007/08/2025 XR, ankle No observ ation record ed. [address] (Medical Records) [address] [place], [address], 07/08/2025 13:28:57 07/08/2007/08/2025 XR, ankle No observ ation record ed. [address] (Medical Records) [address] [place], [address], 07/08/2025 13:29:09 07/12/20 25 07/11/2025 XR, ankle No observ ation record ed. [email or web address] [address] [place], [address], 07/12/2025 10:37:53 07/17/2007/17/2025 fluor oscop y (PROC ) No observ ation record ed. [address] (Medical Records) [address] [place], [address], 07/17/2025 16:25:49 07/17/20 25 07/17/2025 fluor oscop y (PROC ) No observ ation record ed. [address] (Medical Records) [address] [place], [address], 07/17/2025 16:26:13 Result Notes None recorded. Problems Name Problem SNOMED Code Status Onset Date Resolution Date Notes Provider Name and Address Organization Details Recorded Time Asthma 532791040 Active 2017 [facility] 14:21:55 History of depressio n 862993112 Active 2017 [facility] 14:22:01 Acid reflux 758649588 Active 2017 Vannesa valdivia [place] [facility] 8 14:22:15 Psoriasis 7723438 Active 2017 Juana Quinonez NP, S [address] [place] [address], [address], [facility] Medicine 8 11:45:40 Thyroid nodule 249056570 Active 2017 Juana Quinonez NP, S [address] [place] [address], [address], [facility] Internal [facility] 8 11:45:50 Pain of left hip joint 011550137542 100 Active 2021 TJ GALINDO [address] [place] [address], [address], [facility] 2 10:39:06 Candidias is of skin 15973152 Active 2021 TJ GALINDO [address] [place] [address], [address], [facility] 2 10:40:16 Polycysti c ovary syndrome 511873428 Active 2022 TJ GALINDO [address] [place] [address], [address], [facility] 3 12:10:08 Hyperlipi demia 70705696 Active 2022 TJ GALINDO [address] [place] [address], [address], [facility] 3 12:10:23 Insomnia 625091103 Active 2022 TJ GALINDO [address] [place] [address], [address], [facility] 3 12:17:53 Chronic back pain 730198542 Active 2022 TJ GALINDO [address] [place] [address], [address], [facility] 3 12:20:10 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 750533806 Active 2022 TJ GALINDO [address] [place] [address], [address], [facility] 3 14:05:44 Depressiv e disorder 52850817 Active 2023 TJ GALINDO [address] [place] [address], [address], [facility] 4 14:09:02 Thoracic back pain 314878356 Active 2023 TJ GALINDO [address] [place] [address], [address], [facility] 4 14:11:40 Irritable bowel syndrome 99957321 Active 2023 TJ GALINDO [address] [place] [address], [address], [facility] 4 10:13:52 Exacerbat ion of mild persisten t asthma 104982980 Active 2023 TJ GALINDO [address] [place] [address], [address], [facility] 4 10:43:51 Nausea 239237769 Active 2024 Ankur Massey DO [address] [place] [address], [address], [facility] 5 22:59:03 Slow transit constipat ion 68887089 Active 2024 TJ GALINDO [address] [place] [address], [address], [facility] 5 11:28:06 Uncomplic ated severe persisten t asthma 095775575 Active 2024 TJ GALINDO [address] [place] [address], [address], [facility] 5 11:28:29 Mild depressio n 385721719 Active 2024 TJ GALINDO [address] [place] [address], [address], [facility] 5 14:52:09 Body mass index 30+ - obesity 854924908 Active 2024 TJ GALINDO [address] [place] [address], [address], [facility] 5 14:41:22 Adult attention deficit hyperacti vity disorder 145874296 Active 2024 TJ GALNIDO [address] [place] [address], [address], [facility] 14:53:06 Aversion to food or drink 813308718 Active 2024 TJ GALINDO [address] [place] [address], [address], [facility] Internal [facility] 5 15:01:49 Closed fracture of right ankle 864596525114 31863 Active 2024 TJ GALINDO [address] [place] [address], [address], [facility] Internal [facility] 14:56:55 Problem Notes None recorded. Procedures Surgical History Date Name Laterality Status Provider Name and Address Organization Details Recorded Time 995 Cholecystectomy completed Juana Quinonez NP, S [address] [place] [address], [address], [facility] Internal [facility] 12/29/2017 11:47:57 985 Remove tonsils and adenoids completed Juana Quinonez NP, S [address] [place] [address], [address], [facility] 12/29/2017 11:47:40 Imaging Results None recorded. Procedure Notes None recorded. Medical Equipment None Reported. Allergies Allergen ID Allergen Name Allergen Category Reaction Reaction Severity Criticality Documentation Date Start Date Code Code System Note Provider Name and Address Organization Details Recorded Time 1757 Product containin g 3-hydroxy -3-methyl glutaryl- coenzyme A reductase inhibitor (product) medicatio n Not available Not available Not available 08/06/2024 07242 009 SNOMED TJ GALINDO [address] [place] [address], [address], [facility] 10:49:35 Medications [...] DIRECTED BY GA[facility]OENT EROLOGY DEPARTMEN T AT [facility]. 02/19 completed Not Available Not Available Not [...] (BMI) Body weight Heart rate Oxygen saturation Systolic And Diastolic Provider Name and Address Organization Details Last Updated DateTime 5 165.74 cm 30.1 kg/m2 60745.8 1 g 79 /min 97 % 128/80 mm[Hg] Stephanie Boykin [facility] Internal [facility] 5 14:11:28 Social History Question [...] mcg/0.3 mL dose 1 completed Gloria valdivia [facility] 07/10/2021 15:54:36 COVID-19, mRNA, LNP-S, PF, 30 mcg/0.3 mL dose 1 completed Gloriavicki valdivia [facility] 07/10/2021 15:54:42 COVID-19, mRNA, LNP-S, PF, 30 mcg/0.3 mL dose 1 completed Gloria valdivia [facility] 07/12/2022 08:11:18 Influenza, split virus, quadrivalent, preservative 0 completed Gloria valdivia [facility] 07/12/2022 08:11:31 Influenza, split virus, quadrivalent, preservative completed Gloria Kim [facility] 07/12/2022 08:11:38 Past Encounters Encounter ID Performer Location Encounter Start Date Encounter Closed Date Diagnosis/Indication Diagnosis SNOMED-CT Code Diagnosis ICD10 Code Diagnosis IMO Codes Diagnosis Note [id number] [facility] [address] [facility],[place] [address] 06/04/2025 14:26:37 06/05/2025 09:30:37 Depression screening 459894888 Z13.[address] Body mass index 30+ - obesity 192256204 E66.9 4698470 stable Aversion t o food or drink 299444408 R63.39 5503313 Adult atte ntion deficit hyperactivity disorder 142317303 F90.9 076720 Nausea 098987922 R11.0 will set up with refills [id number] Ankur MorfinJhonatan [facility] [address] [facility],[place] [address] 07/02/2025 14:00:27 07/02/2025 15:47:16 Depression screening 954061470 Z13.[address] Body mass index 30+ - obesity 878166811 E66.9 stable Adult atte ntion deficit hyperactivity disorder 227170983 F90.9 150865 Mild depression 78081486 3 F32.A stable Health Concerns Section Related Observation LastModified by Organization Detai ls LastModified Time None Recorded Concern Status LastModified by Organization Details LastModified Time None Recorded Payers Encounter Date Sequence Insurance Name Policy Number Policy Vaughn Covered Member ID Vaughn Member ID Guarantor Name 07/02/2025 1 [facility] [place] Ree Farah [id number] Ree Farah Notes Date Note Type Note Provider Name a nd Address Organization Details Recorded Time 07/02/2025 text/html ROS as noted in the HPI f/u weight The patient presents to the office for evaluation and assessment for concerns of ADHD symptoms DSM-5 Criteria of ADHD to help diagnosis adults: A. A persistent pattern of inattention and/or hyperactivity-impu lsivity that interferes with functioning or development, as characterized by (1) and/or (2): 1 . Inattention Six (or more) of the following symptoms have persisted for at least six months to a degree that is inconsistent with developmental level and that negatively impacts directly on social and academic/occupatio nal activities: -a. Fails to give close attention [...] that negatively impacts directly on social and academic/occupatio nal activities: -a. Often fidgets with or taps [...] others are doing). B. Several inattentive or hyperactive-impuls wayne symptoms were present prior to age 12 years. C. Several inattentive or hyperactive-impuls wayne symptoms are present in two or more [...] current dose of zepbound TJ GALINDO [address] [place], [address], [facility] 07/02/2025 14:40:16 OBGyn Episode No OBEpisode recorded.
--- OUTSIDE RECORDS SUMMARY | 2025-08-13 11:19 | XMS_ITS | Continuity of Care Document ---
Author Organization [facility], [facility] Address [address] [facility] [place] [address] [place] [address] Assessment No assessment recorded. Plan of Treatment Reminders Order Date Submit Date Provider Last Modified By Organization Details Last Modified Time Details Appointments FOLLOW UP 15 2024 10:15A M TJ GALINDO Not available Not available Not available Lab None recorded. Referral None recorded. Procedures None recorded. Surgeries None recorded. Imaging None recorded. Medication Orders gabapenti n 400 mg capsule 2024 [facility], [address] [place], [address], 08/06/2025 10:53:31 diclofena c sodium 75 mg tablet,de layed release 2024 [facility], [address] [place], [address], 08/06/2025 10:53:31 Zepbound 12.5 mg/0.5 mL subcutane ous pen injector 2024 [place] [facility], [address] [place], [address], 08/06/2025 11:17:08 Patient TargetsNo targets recorded. Patient InstructionsNo instructions recorded. Reason for Referral None Reported. Results Created Date Observation Date Name Description Value Unit Range Abnormal Flag Note LastModifiedBy Organization Detail LastModifiedTime 07/08/2007/08/2025 XR, knee No observ ation record ed. [email or web address] [facility] (Medical Records) [address] [facility] [place], [address], 07/08/2025 13:28:46 07/08/2007/08/2025 XR, ankle No observ ation record ed. [facility] (Medical Records) [address] [facility] [place], [address], 07/08/2025 13:28:57 07/08/2007/08/2025 XR, ankle No observ ation record ed. [facility] (Medical Records) [address] [facility] [place], [address], 07/08/2025 13:29:09 07/12/2007/11/2025 XR, ankle No observ ation record ed. [email or web address] [address] [place], [address], 07/12/2025 10:37:53 07/17/2007/17/2025 fluor oscop y (PROC ) No observ ation record ed. [address] (Medical Records) [address] [facility] [place], [address], 07/17/2025 16:25:49 07/17/2007/17/2025 fluor oscop y (PROC ) No observ ation record ed. [address] (Medical Records) [address] [place], [address], 07/17/2025 16:26:13 Result Notes None recorded. Problems Name Problem SNOMED Code Status Onset Date Resolution Date Notes Provider Name and Address Organization Details Recorded Time Asthma 117260559 Active 2017 [facility] 14:21:55 History of depressio n 474443173 Active 2017 [facility] 14:22:01 Acid reflux 992083551 Active 2017 [facility] 8 14:22:15 Psoriasis 9256255 Active 2017 Juana Quinonez NP, S [address] [place] [address], [address], [facility] 8 11:45:40 Thyroid nodule 736220291 Active 2017 Juana Quinonez NP, S [address] [place] [address], [address], [facility] 8 11:45:50 Pain of left hip joint 584078717223 100 Active 2021 TJ GALINDO [address] [place] [address], [address], [facility] 2 10:39:06 Candidias is of skin 92192335 Active 2021 TJ GALINDO [address] [place] [address], [address], [facility] 2 10:40:16 Polycysti c ovary syndrome 493354778 Active 2022 TJ GALINDO [address] [place] [address], [address], [facility] 3 12:10:08 Hyperlipi demia 03962777 Active 2022 TJ GALINDO [address] [place] [address], [address], [facility] 3 12:10:23 Insomnia 280525418 Active 2022 TJ GALINDO [address] [place] [address], [address], [facility] 3 12:17:53 Chronic back pain 408408176 Active 2022 TJ GALINDO [address] [place] [address], [address], [facility] 3 12:20:10 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 524063362 Active 2022 TJ GALINDO [address] [place], [address], [facility] 3 14:05:44 Depressiv e disorder 80673980 Active 2023 TJ GALINDO [address] [place], [address], [facility] 4 14:09:02 Thoracic back pain 473022412 Active 2023 TJ GALINDO [address] [place] [address], [address], [facility] 4 14:11:40 Irritable bowel syndrome 08020920 Active 2023 TJ GALINDO [address] [place] [address], [address], [facility] 4 10:13:52 Exacerbat ion of mild persisten t asthma 684363884 Active 2023 TJ GALINDO [address] [place] [address], [address], [facility] 4 10:43:51 Nausea 960902662 Active 2024 Ankur Massey DO [address] [place] [address], [address], [facility] 5 22:59:03 Slow transit constipat ion 36513967 Active 2024 TJ GALINDO [address] [place] [address], [address], [facility] 5 11:28:06 Uncomplic ated severe persisten t asthma 698019615 Active 2024 TJ GALINDO [address] [place] [address], [address], [facility] 5 11:28:29 Mild depressio n 877556612 Active 2024 TJ GALINDO [address] [place] [address], [address], [facility] 5 14:52:09 Body mass index 30+ - obesity 134228157 Active 2024 TJ GALINDO [address] [place] [address], [address], [facility] 5 14:41:22 Adult attention deficit hyperacti vity disorder 816756344 Active 2024 TJ GALINDO [address] [place] [address], [address], [facility] 5 14:53:06 Aversion to food or drink 167133065 Active 2024 TJ GALINDO [address] [place] [address], [address], [facility] 5 15:01:49 Closed fracture of right ankle 671102820383 83190 Active 2024 TJ GALINDO [address] [place] [address], [address], [facility] 14:56:55 Problem Notes None recorded. Procedures Surgical History Date Name Laterality Status Provider Name and Address Organization Details Recorded Time 995 Cholecystectomy completed Juana Quinonez NP, [place] [address] [place] [address], [address], [facility] 12/29/2017 11:47:57 985 Remove tonsils and adenoids completed Juana Quinonez NP, [place] [address] [place] [address], [address], [facility] 12/29/2017 11:47:40 Imaging Results None recorded. Procedure Notes None recorded. Medical Equipment None Reported. Allergies Allergen ID Allergen Name Allergen Category Reaction Reaction Severity Criticality Documentation Date Start Date Code Code System Note Provider Name and Address Organization Details Recorded Time 7272 Product containin g 3-hydroxy -3-methyl glutaryl- coenzyme A reductase inhibitor (product) medicatio n Not available Not available Not available 08/06/2024 31569 009 SNOMED TJ GALINDO [address] [place] [address], [address], [facility] [...] Vitals Date Recorded Body height Oxygen saturation Heart rate Systolic And Diastolic Provider Name and Address Organization Details Last Updated DateTime 08/06/2025 165.74 cm 98 % 74 /min 110/72 mm[Hg] ANNIKA HESTER [facility] 08/06/2025 10:24:03 Social History Question Answer Notes LastModified [...] esparza Not available 2017 11:49:18 Mother Obesity eskawski [...] mcg/0.3 mL dose 1 completed Gloria valdivia [facility] 07/10/2021 15:54:36 COVID-19, mRNA, LNP-S, PF, 30 mcg/0.3 mL dose 1 completed Gloria valdivia [facility] 07/10/2021 15:54:42 COVID-19, mRNA, LNP-S, PF, 30 mcg/0.3 mL dose 1 completed Gloria valdivia [facility] 07/12/2022 08:11:18 Influenza, split virus, quadrivalent, preservative 0 completed Gloria valdivia [facility] 07/12/2022 08:11:31 Influenza, split virus, quadrivalent, preservative 1 completed Gloria Kim [facility] 07/12/2022 08:11:38 Past Encounters Encounter ID Performer Location Encounter Start Date Encounter Closed Date Diagnosis/Indication Diagnosis SNOMED-CT Code Diagnosis ICD10 Code Diagnosis IMO Codes Diagnosis Note [id number] Ankur Massey [facility] [address] [facility] [address] [address] 07/10/2025 12:24:52 07/12/2025 09:49:42 Closed fracture of right ankle 7367033289 0376506 S82.891A 3446253 refillswit ch to ibu 800 mg TID [id number] Ankur Massey [facility] [address] [facility] [address] 08/06/2025 10:12:15 08/06/2025 12:05:28 Depression screening 919612233 Z13.31 [address] Closed fra cture of right ankle 3039296622 4897135 S82.891A closed trimalleol ar fracture of right ankle adjust to 400 mg TID of gabapentin switch out from celecoxib 200 mg to diclofenac 75 mg for inflammati onthe patient does Body mass index 30+ - obesity 699032417 E66.9 stable Health Concerns Section Related Observation LastModified by Organization Detai ls LastModified Time None Recorded Concern Status LastModified by Organization Details LastModified Time None Recorded Payers Encounter Date Sequence Insurance Name Policy Number Policy Vaughn Covered Member ID Vaughn Member ID Guarantor Name 08/06/2025 1 [facility] Ree Farah [id number] Ree Farah Notes Date Note Type Note Provider Name a nd Address Organization Details Recorded Time 08/06/2025 text/html [...] does help with the pain TJ GALINDO [address] [place] [address], [place], [address], [facility] 08/06/2025 11:19:38 OBGyn Episode No OBEpisode recorded.
--- OUTSIDE RECORDS SUMMARY | 2025-08-13 11:19 | XMS_ITS | Continuity of Care Document ---
Author Organization [facility], [facility] Address [address] [facility] [place] [address] Assessment No assessment recorded. Plan of Treatment Reminders Order Date Submit Date Provider Last Modified By Organization Details Last Modified Time Details Appointments FOLLOW UP 15 2024 10:15A M TJ GALINDO Not available Not available Not available Lab None recorded. Referral None recorded. Procedures None recorded. Surgeries None recorded. Imaging None recorded. Medication Orders ondansetr on HCl 8 mg tablet 2024 025 [facility], [address] [place], [address], 07/02/2025 14:28:07 Zepbound 12.5 mg/0.5 mL subcutane ous pen injector 2024 025 [place], [address] [place], [address], 06/04/2025 15:01:03 Patient TargetsNo targets recorded. Patient InstructionsNo instructions recorded. Reason for Referral None Reported. Results Created Date Observation Date Name Description Value Unit Range Abnormal Flag Note LastModifiedBy Organization Detail LastModifiedTime 07/08/2007/08/2025 XR, knee No observ ation record ed. [email or web address] [facility] (Medical Records) [address] [place], [address], 07/08/2025 13:28:46 07/08/2007/08/2025 XR, ankle No observ ation record ed. [facility] (Medical Records) [address] [facility] [place], [address], 07/08/2025 13:28:57 07/08/2007/08/2025 XR, ankle No observ ation record ed. [facility] (Medical Records) [address] [facility] [place], [address], 07/08/2025 13:29:09 07/12/20 25 07/11/2025 XR, ankle No observ ation record ed. [facility] [address] [place], [address], 07/12/2025 10:37:53 07/17/2007/17/2025 fluor oscop y (PROC ) No observ ation record ed. [address] (Medical Records) [address] [place], [address], 07/17/2025 16:25:49 07/17/2007/17/2025 fluor oscop y (PROC ) No observ ation record ed. [address] (Medical Records) [address] [place], [address], 07/17/2025 16:26:13 Result Notes None recorded. Problems Name Problem SNOMED Code Status Onset Date Resolution Date Notes Provider Name and Address Organization Details Recorded Time Asthma 147828453 Active 2017 Vannesa valdivia [place] [facility] 8 14:21:55 History of depressio n 627442911 Active 2017 [facility] 8 14:22:01 Acid reflux 902197286 Active 2017 [facility] 8 14:22:15 Psoriasis 5652901 Active 2017 Juana Quinonez NP, S [address] [facility], [place], [address], [facility] 8 11:45:40 Thyroid nodule 518474975 Active 2017 Juana Quinonez NP, S [address] [place] [address], [address], [facility] 8 11:45:50 Pain of left hip joint 010797363546 100 Active 2021 TJ GALINDO [address] [place] [address], [address], [facility] 2 10:39:06 Candidias is of skin 36698755 Active 2021 TJ GALINDO [address] [place] [address], [address], [facility] 2 10:40:16 Polycysti c ovary syndrome 421737960 Active 2022 TJ GALINDO [address] [place] [address], [address], [facility] 3 12:10:08 Hyperlipi demia 13857237 Active 2022 TJ GALINDO [address] [place] [address], [address], [facility] 3 12:10:23 Insomnia 057449911 Active 2022 TJ GALINDO [address] [place] [address], [address], [facility] 3 12:17:53 Chronic back pain 092892613 Active 2022 TJ GALINDO [address] [place] [address], [address], [facility] 3 12:20:10 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 002975932 Active 2022 TJ GALINDO [address] [place] [address], [address], [facility] 3 14:05:44 Depressiv e disorder 73008496 Active 2023 TJ GALINDO [address] [place] [address], [address], [facility] 4 14:09:02 Thoracic back pain 691419891 Active 2023 TJ GALINDO [address] [place] [address], [address], [facility] 4 14:11:40 Irritable bowel syndrome 66414529 Active 2023 TJ GALINDO [address] [place] [address], [address], [facility] 4 10:13:52 Exacerbat ion of mild persisten t asthma 715975399 Active 2023 TJ GALINDO [address] [place] [address], [address], [facility] 4 10:43:51 Nausea 997528306 Active 2024 Ankur Massey, [address] [place] [address], [address], [facility] 5 22:59:03 Slow transit constipat ion 10714109 Active 2024 TJ GALINDO [address] [place] [address], [address], [facility] 5 11:28:06 Uncomplic ated severe persisten t asthma 031490131 Active 2024 JT GALINDO [address] [place] [address], [address], [facility] 5 11:28:29 Mild depressio n 416992259 Active 2024 TJ GALINDO [address] [place] [address], [address], [facility] 5 14:52:09 Body mass index 30+ - obesity 722527645 Active 2024 TJ GALINDO [address] [place] [address], [address], [place] [facility] 5 14:41:22 Adult attention deficit hyperacti vity disorder 782533681 Active 2024 TJ GALINDO [address] [place] [address], [address], [facility] 5 14:53:06 Aversion to food or drink 580180597 Active 2024 TJ GALINDO [address] [place] [address], [address], [facility] 5 15:01:49 Closed fracture of right ankle 501721546786 73859 Active 2024 TJ GALINDO [address] [place] [address], [address], [facility] 5 14:56:55 Problem Notes None recorded. Procedures Surgical History Date Name Laterality Status Provider Name and Address Organization Details Recorded Time 995 Cholecystectomy completed Juana Quinonez NP, S [address] [place] [address], [address], [facility] 12/29/2017 11:47:57 985 Remove tonsils and adenoids completed Juana Quinonez NP, S [address] [place] [address], [address], [facility] 12/29/2017 11:47:40 Imaging Results None recorded. Procedure Notes None recorded. Medical Equipment None Reported. Allergies Allergen ID Allergen Name Allergen Category Reaction Reaction Severity Criticality Documentation Date Start Date Code Code System Note Provider Name and Address Organization Details Recorded Time 8530 Product containin g 3-hydroxy -3-methyl glutaryl- coenzyme A reductase inhibitor (product) medicatio n Not available Not available Not available 08/06/2024 00236 009 SNOMED TJ GALINDO [address] [place] [address], [address], [employer] [facility] [employer] 4 10:49:35 Medications Name Sig Start Date [...] DIRECTED BY [facility] DEPART[facility] T AT [facility]. 02/19 completed Not Available Not Available [...] Updated DateTime 5 165.74 cm 31 kg/m2 55546.3 7 g 80 /min 98 % 128/80 mm[Hg] [facility] 5 14:32:05 Social History Question Answer Notes LastModified by [...] by Organization Details LastModified Time Father Hypercholest gildaia vilma Not available 2017 11:49:18 Mother Obesity [...] mcg/0.3 mL dose 1 completed Gloria valdivia [facility] 07/10/2021 15:54:36 COVID-19, mRNA, LNP-S, PF, 30 mcg/0.3 mL dose 1 completed Gloria valdivia [facility] 07/10/2021 15:54:42 COVID-19, mRNA, LNP-S, PF, 30 mcg/0.3 mL dose 1 completed Gloria valdivia [facility] 07/12/2022 08:11:18 Influenza, split virus, quadrivalent, preservative 0 completed Gloria valdivia [facility] Internal [facility] 07/12/2022 08:11:31 Influenza, split virus, quadrivalent, preservative 1 completed Gloria valdivia [facility] 07/12/2022 08:11:38 Past Encounters Encounter ID Performer Location Encounter Start Date Encounter Closed Date Diagnosis/Indication Diagnosis SNOMED-CT Code Diagnosis ICD10 Code Diagnosis IMO Codes Diagnosis Note [id number] Ankur Massey DO [facility] [address] [facility],[place] [address] 06/04/2025 14:26:37 06/05/2025 09:30:37 Depression screening 472540131 Z13.[address] Body mass index 30+ - obesity 169943251 E66.9 6942774 stable Aversion t o food or drink 596649798 R63.39 9502329 Adult atte ntion deficit hyperactivity disorder 784820031 F90.9 648875 Nausea 847742388 R11.0 will set up with refills Health Concerns Section Related Observation LastModified by Organization Detai ls LastModified Time None Recorded Concern Status LastModified by Organization Details LastModified Time None Recorded Payers Encounter Date Sequence Insurance Name Policy Number Policy Vaughn Covered Member ID Vaughn Member ID Guarantor Name 06/04/2025 1 [facility] Ree Farah [id number] Ree Farah Notes Date Note Type Note Provider Name a nd Address Organization Details Recorded Time 06/04/2025 text/html ROS as noted in the [...] will seevs ADHD treatment TJ GALINDO [address] [facility], [place], [address], [facility] 06/04/2025 15:07:14 OBGyn Episode No OBEpisode recorded.
--- OUTSIDE RECORDS SUMMARY | 2025-08-13 11:19 | XMS_ITS | Data Portability ---
Author Organization [facility], Telehealth Patient Home Address [address] [place] [address] Assessment No assessment recorded. Plan of Treatment Reminders Order Date Submit Date Provider Last Modified By Organization Details Last Modified Time Details Appointments FOLLOW UP 15 2024 10:15A M TJ GALINDO Not available Not available Not available Lab None recorded. Referral None recorded. Procedures None recorded. Surgeries None recorded. Imaging None recorded. Medication Orders gabapenti n 400 mg capsule 2024 [place], [address] [place], [address], 08/06/2025 10:53:31 diclofena c sodium 75 mg tablet,de layed release 2024 [place] [facility], [address] [place], [address], 08/06/2025 10:53:31 Zepbound 12.5 mg/0.5 mL subcutane ous pen injector 2024 [place] [facility], [address] [place], [address], 08/06/2025 11:17:08 oxycodone 5 mg tablet 2024 [place] [facility], [address] [place], [address], 07/10/2025 14:58:20 buspirone 10 mg tablet 2024 025 [place] [facility], [address] [place], [address], 07/02/2025 14:37:55 dextroamp hetamine- amphetami ne 10 mg tablet 2024 025 [facility] [address] [place], [address], 08/06/2025 11:02:36 Zepbound 12.5 mg/0.5 mL subcutane ous pen injector 2024 025 [place] [facility], [address] [place], [address], 07/02/2025 14:27:09 ondansetr on HCl 8 mg tablet 2024 025 [place] [facility], [address] [place], [address], 07/02/2025 14:28:07 Zepbound 12.5 mg/0.5 mL subcutane ous pen injector 2024 025 [place] [facility], [address] [place], [address], 06/04/2025 15:01:03 zolpidem 5 mg tablet 2024 025 [place] [facility], [address] [place], [address], 04/26/2025 14:47:51 buspirone 10 mg tablet 2024 025 [place] [facility], [address] [place], [address], 04/26/2025 14:55:29 Zepbound 10 mg/0.5 mL subcutane ous pen injector 2024 025 [place] [facility], [address] [facility], [place], [address], 06/04/2025 15:00:32 Patient TargetsNo targets recorded. Patient InstructionsNo instructions recorded. Reason for Referral None Reported. Results Created Date Observation Date Name Description Value Unit Range Abnormal Flag Note LastModifiedBy Organization Detail LastModifiedTime 07/08/2007/08/2025 XR, knee No observ ation record ed. [email or web address] [facility] (Medical Records) [address] [place], [address], 07/08/2025 13:28:46 07/08/2007/08/2025 XR, ankle No observ ation record ed. [address] (Medical Records) [address] [place], [address], 07/08/2025 13:28:57 07/08/2007/08/2025 XR, ankle No observ ation record ed. [email or web address] (Medical Records) [address] [place], [address], 07/08/2025 13:29:09 07/12/2007/11/2025 XR, ankle No observ ation record ed. [email or web address] [address] [place], [address], 07/12/2025 10:37:53 07/17/2007/17/2025 fluor oscop y (PROC ) No observ ation record ed. [email or web address] (Medical Records) [address] [place], [address], 07/17/2025 16:25:49 07/17/2007/17/2025 fluor oscop y (PROC ) No observ ation record ed. [address] (Medical Records) [address] [place], [address], 07/17/2025 16:26:13 Result Notes None recorded. Problems Name Problem SNOMED Code Status Onset Date Resolution Date Notes Provider Name and Address Organization Details Recorded Time Asthma 709815606 [facility] 14:21:55 History of depressio n 918665692 Active 2017 [facility] 14:22:01 Acid reflux 525683171 Active [address]div[address] [facility] 8 14:22:15 Psoriasis 8573899 Active 2017 Juana Quinonez NP, S [address] [place], [address], [facility] 8 11:45:40 Thyroid nodule 882744956 Active 2017 Juana Quinonez NP, S [address] [place], [address], [facility] 8 11:45:50 Pain of left hip joint 501957549876 100 Active 2021 TJ GALINDO [address] [place], [address], [facility] 2 10:39:06 Candidias is of skin 65293738 Active 2021 TJ GALINDO [address] [place] [address], [address], [facility] 2 10:40:16 Polycysti c ovary syndrome 120946731 Active 2022 TJ GALINDO [address] [place], [address], [facility] 3 12:10:08 Hyperlipi demia 18933823 Active 2022 TJ GALINDO [address] [place], [address], [facility] 3 12:10:23 Insomnia 218004905 Active 2022 TJ GALINDO [address] [place], [address], [facility] 3 12:17:53 Chronic back pain 394440314 Active 2022 TJ GALINDO [address] [place] [address], [address], [facility] 3 12:20:10 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 428498276 Active 2022 TJ GALINDO [address] [place] [address], [address], [facility] 3 14:05:44 Depressiv e disorder 52203925 Active 2023 TJ GALINDO [address] [place] [address], [address], [facility] 4 14:09:02 Thoracic back pain 515796899 Active 2023 TJ GALINDO [address] [place] [address], [address], [facility] 4 14:11:40 Irritable bowel syndrome 87845948 Active 2023 TJ GALINDO [address] [place] [address], [address], [facility] 4 10:13:52 Exacerbat ion of mild persisten t asthma 662061094 Active 2023 TJ GALINDO [address] [place] [address], [address], [facility] 4 10:43:51 Nausea 502041049 Active 2024 Ankur Massey DO [address] [place] [address], [address], [facility] 5 22:59:03 Slow transit constipat ion 97094548 Active 2024 TJ GALINDO [address] [place] [address], [address], [facility] 5 11:28:06 Uncomplic ated severe persisten t asthma 686467788 Active 2024 TJ GALINDO [address] [place] [address], [address], [facility] 5 11:28:29 Mild depressio n 815534114 Active 2024 TJ GALINDO [address] [place] [address], [address], [facility] 5 14:52:09 Body mass index 30+ - obesity 379033104 Active 2024 TJ GALINDO [address] [place] [address], [address], [facility] 14:41:22 Adult attention deficit hyperacti vity disorder 273396967 Active 2024 TJ GALINDO [address] [place] [address], [address], [facility] 5 14:53:06 Aversion to food or drink 912975817 Active 2024 TJ GALINDO [address] [place] [address], [address], [facility] 5 15:01:49 Closed fracture of right ankle 793266304693 26301 Active 2024 TJ GALINDO [address] [place] [address], [address], [facility] 14:56:55 Problem Notes None recorded. Procedures Surgical History Date Name Laterality Status Provider Name and Address Organization Details Recorded Time 995 Cholecystectomy completed Juana Quinonez NP, Ilan [address] [place] [address], [address], [facility] 12/29/2017 11:47:57 985 Remove tonsils and adenoids completed Juana Quinonez NP, Ilan [address] [place] [address], [address], [facility] 12/29/2017 11:47:40 Imaging Results None recorded. Procedure Notes None recorded. Medical Equipment None Reported. Allergies Allergen ID Allergen Name Allergen Category Reaction Reaction Severity Criticality Documentation Date Start Date Code Code System Note Provider Name and Address Organization Details Recorded Time 8533 Product containin g 3-hydroxy -3-methyl glutaryl- coenzyme A reductase inhibitor (product) medicatio n Not available Not available Not available 08/06/2024 32425 009 SNOMED TJ GALINDO [address] [place], [address], [facility] 10:49:35 Medications Name Sig Start [...] DIRECTED BY GASTROENT EROLOGY DEPARTMEN T AT [facility]. 02/19 completed Not Available Not Available Not [...] and Address Organization Details Last Updated DateTime 165.74 cm 32 kg/m2 72075.9 2 g 64 /min 98 % 128/86 mm[Hg] Jolene Ang [facility] 14:18:16 Date Recorded Body height Body mass index (BMI) Body weight Heart rate Oxygen saturation Systolic And Diastolic Provider Name and Address Organization Details Last Updated DateTime 165.74 cm 31 kg/m2 70663.3 7 g 80 /min 98 % 128/80 mm[Hg] Stephanie Boykin [facility] 5 14:32:05 Date Recorded Body height Body mass index (BMI) Body weight Heart rate Oxygen saturation Systolic And Diastolic Provider Name and Address Organization Details Last Updated DateTime 165.74 cm 30.1 kg/m2 08304.8 1 g 79 /min 97 % 128/80 mm[Hg] Stephanie Boykin [facility] 5 14:11:28 Date Recorded Body height Oxygen saturation Heart rate Systolic And Diastolic Provider Name and Address Organization Details Last Updated DateTime 08/06/2025 165.74 cm 98 % 74 /min 110/72 mm[Hg] ANNIKA HESTER [facility] 08/06/2025 10:24:03 Social History Question Answer Notes LastModified by Organizat ion Details LastModified Time Tobacco Smoking Status Never Smoker Not Available [facility] 07/22/2020 03:36:24 What Was The [...] esparza Not available 2017 11:49:18 Mother Obesity vilma Not available 12/29/2017 11:49:29 Mother Migraine vilma Not available 12/29/2017 11:49:40 Medical History No medical history recorded. Gynecological HistoryNo gynecological history recorded. Obstetrics History GPAL:G 0 P 0 0 0 0 Immunizations Vaccine Type Date Status Note Provider Nam e and Address Organization Details Recorded Time COVID-19, mRNA, LNP-S, PF, 30 mcg/0.3 mL dose 1 completed Gloria valdivia [facility] 07/10/2021 15:54:36 COVID-19, mRNA, LNP-S, PF, 30 mcg/0.3 mL dose 1 completed Gloria valdivia [facility] 07/10/2021 15:54:42 COVID-19, mRNA, LNP-S, PF, 30 mcg/0.3 mL dose 1 parrish valdivia [facility] 07/12/2022 08:11:18 Influenza, split virus, quadrivalent, preservative 0 completed Gloria valdivia [facility] 07/12/2022 08:11:31 Influenza, split virus, quadrivalent, preservative 1 parrish valdivia [facility] 07/12/2022 08:11:38 Past Encounters Encounter ID Performer Location Encounter Start Date Encounter Closed Date Diagnosis/Indication Diagnosis SNOMED-CT Code Diagnosis ICD10 Code Diagnosis IMO Codes Diagnosis Note [id number] Ankur Massey DO [facility] [address] [facility],[place] [address] 12/30/2017 10:20:38 12/30/2017 12:29:00 Dyspnea on exertion 39958596 R06.09 Iron defic iency anemia 98170765 D50.9 provided with list of foods high in iron, explained importance Left lower quadrant pain 157283387 R10.32 Asthma 728042518 J45.90 9 follow, continue with inhalers Fatigue 93634127 R53.83 ? r/t fe deficiency anemia, follow Gastroesop hageal reflux disease 442549741 K21.9 negative UGI, [id number] Ankur Massey [facility] [address] [facility] [address] [address] 01/09/2018 09:28:30 01/09/2018 10:22:38 Acute pelvic pain 298848491 R10.2 abnormal u/s awaiting nnp consult Iron defic iency anemia 66083995 D50.9 reiterated importance Dyspnea on exertion 6084 5006 R06.09 neg. CXR, ? r/t anemia, follow Gastroesop hageal reflux disease 778939316 K21.9 negative UGI, but symptomati c Asthma 254248279 J45.90 9 follow, continue with inhalers Depressive disorder 3548 9007 F32.89 continue sertraline [id number] Ankur Massey [facility] [address] [facility],[place] [address] 02/07/2018 11:24:21 02/07/2018 12:27:12 Asthmatic bronchitis 289451318 J45.909 Moderate p ersistent asthma 535310716 J45.40 call if no better Iron defic iency anemia 50792295 D50.9 follow after nnp /lupron, had colonoscop y 5 years ago Dyspnea on exertion 6084 5006 R06.09 mildly improved, follow [id number] Ankur Massey [facility] [address] [facility],[place] [address] 02/20/2018 10:55:17 02/20/2018 17:25:32 Acute bronchitis 77786742 J20.9 resolved, will fax letter to surgeon, unable to locate in system [id number] Ankur Massey [facility] [address] [facility] [address] [address] 09/22/2018 13:24:58 09/22/2018 13:56:08 Asthma 346489532 J45.909 on advair on proair History of depression 16 1732084 Z86.59 on sertraline Acid reflux 506846851 K2 1.9 quiet without meds Acute sinusitis 38938457 J01.90 favor bacterial infection [id number] Ankur Massey [facility] [address] [facility],[place] [address] 01/15/2019 13:50:42 01/15/2019 16:24:14 Psoriasis 3993234 L40.9 Pain of left hand 662538 5694 18722 M79.642 Pain of right hand 25182 53961 35880 M79.641 Asthma 276313702 J45.90 9 stable, continue with inhalers Acid reflux 932378446 K2 1.9 controlled [id number] Ankur Massey [facility] [address] [facility],[place] [address] 12/03/2019 14:24:44 12/03/2019 15:04:40 Asthma 555243040 J45.909 stable Chronic uveitis 02686304 2 H20.12 pt has had painful, itchy, injected left eye intermitte ntly since May. has a hx of psoriasis which is being treated son has a hx of uveitis [id number] Ankur Massey [facility] [address] [facility],[place] [address] 04/02/2020 11:01:48 04/02/2020 11:47:29 Asthma 399322777 J45.909 stable Chronic sinusitis 905065 00 J32.9 recommende d OTC flonase as well to help open up nasal passages and sinus and reduce inflammati on along with a longer course of abx most likely started as allergies and developed into sinus infection [id number] Ankur Massey [facility] [address] [facility],[place] [address] 04/23/2020 14:23:31 04/23/2020 15:05:08 Chronic sinusitis 03093433 J32.[address] sinuses to see if there is any issue there Dyspnea 373127924 R06.00 will do an XR to r/o possible pulmonary involvemen t Chronic uveitis 72019128 2 H20.12 will work her up for any underlying conditions that may be contributi ng to her on going problems Fatigue 72529616 R53.83 could be just to the illness as she has been sick for almost a month now [id number] Ankur Massey [facility] [address] [facility],[place] [address] 07/13/2021 09:36:22 07/13/2021 10:29:03 Screening colonoscopy 409389452 Z12.11 will submit referral Insomnia 721749770 G47.0 9 will trial trazodone Asthma 544992740 J45.20 stable History of depression 16 2789622 Z86.59 switch medication given taper instructio ns Hyperlipidemia 92589568 E78.2 will trial low dose of pravastati n Anxiety 32826985 F41.1 will trial bupropion [id number] [facility] [address] [facility],[place] [address] 07/12/2022 10:25:43 07/12/2022 13:31:01 Asthma 572435417 J45.20 worseningw ill switch to ventolin since pro air is off market Pain of le ft hip joint 9654070834 06695 M25.552 will trial a topicalwil l let me know if she would like to proceed with the MRI Candidiasis of skin 4988 3006 B37.2 will f/u with topical for flare ups [id number] Ankur Massey [facility] [address] [facility],[place] [address] 05/27/2023 11:39:06 05/27/2023 14:40:06 Asthma 961268752 J45.50 worseningw ill switch to ventolin since pro air is off market History of depression 16 3556384 Z86.59 switch medication given taper instructio ns Pain of le ft hip joint 5834849042 06166 M25.552 will trial a topicalwil l let me know if she would like to proceed with the MRI Hyperlipidemia 46625822 E78.2 [address] up with CT scan calcium score Screening colonoscopy 44 3196601 Z12.11 will submit referral again Insomnia 194402242 G47.0 9 no effect with trazodone Chronic back pain 276477 002 G89.29 will set up with plastic surgeon for consult with plastic surgeon [id number] Ankur Massey [facility] [address] [facility],[place] [address] 02/20/2024 13:29:51 02/20/2024 15:12:06 Hyperlipidemia 60869183 E78.2 no statins Asthma 056082369 J45.50 worseningw ill switch to ventolin since pro air is off market Body mass index 30+ - obesity 222114285 Z68.34 agreed to start on phentermin e for the weight loss since diet and exercise alone have not helped Depressive disorder 3548 9007 F32.0 will set up with venlafaxin e for the depression less weight gain Thoracic back pain 38075 8004 M54.6 agreed to PT referral for eval and treatment plan Depression screening 171 236625 Z13.[address] [id number] Ankur Massey [facility] [address] [facility],[place] [address] 03/30/2024 09:52:37 03/30/2024 15:00:34 Depression screening 484725153 Z13.[address] Asthma 546293043 J45.50 worseningw ill switch to ventolin since pro air is off market Irritable bowel syndrome 41429717 K58.2 will set up with cyber incident analyst Insomnia 220409548 G47.0 9 will continue ambien [id number] Ankur Massey [facility] [address] [facility],[place] [address] 06/01/2024 09:50:39 06/01/2024 10:28:03 Asthma 849411455 J45.50 stable Polycystic ovary syndrome of bilateral ovaries 228648201 E28.2 stable Body mass index 30+ - obesity 887673434 Z68.34 increased dose of phentermin e and added topimax for combo treatment Insomnia 232087995 G47.0 9 will continue ambienno dose adjustment [id number] Ankur Massey [facility] [address] [place] [address] 08/06/2024 08:50:32 08/06/2024 11:21:52 Body mass index 30+ - obesity 817442960 Z68.34 increased dose of topimax for combo treatment Asthma 585355955 J45.50 stable Depressive disorder 3548 9007 F32.0 stable Exacerbati on of mild persistent asthma 509813336 J45.31 will start on short pred burst for residual inflammati on Hyperlipidemia 97893848 E78.2 no statins Thyroid nodule 752203308 E04.1 routine recheck [id number] Ankur Massey [facility] [address] [place] [address] 01/23/2025 10:11:55 01/23/2025 11:24:06 Body mass index 30+ - obesity 939050920 Z68.33 [id number] GERD, HLD, IFG, possibly sleep apnea [id number] Ankur Massey [facility] [address] [place] [address] 02/26/2025 10:42:20 02/26/2025 15:03:27 Depression screening 868401021 Z13.[address] Body mass index 30+ - obesity 224103019 Z68.33 GERD, HLD, IFG, possibly sleep apneaincre ase to the 5 mg and then 7.5 mg after the 4 weeksis losing inches from her waist, arms and legs that she has been noticing Slow trans it constipation 13191799 K59.01 8838 is holding on doing a CT scan w/wothinks after discussion she will call them back and go forward with the CT scan Uncomplica ny severe persistent asthma 438678155 J45.50 6716055 stable [id number] Ankur Massey [facility] [address] [place] [address] 03/27/2025 10:19:36 03/27/2025 12:04:46 Polycystic ovary syndrome 236236821 E28.2 stable Slow trans it constipation 56941930 K59.01 8838 is holding on doing a CT scan w/refugio after discussion she will call them back and go forward with the CT scan Depression screening 171 795106 Z13.[address] Body mass index 30+ - obesity 967088058 Z68.33 continue on the medication , increase the 7.5 mg Nausea 123445044 R11.0 will set up with refills [id number] Ankur Massey [facility] [address] [facility],[place] [address] 04/26/2025 14:09:19 04/26/2025 15:12:33 Depression screening 801645728 Z13.[address] Body mass index 30+ - obesity 567528123 Z68.33 continue on the medication , increase the 7.5 mg Insomnia 116043845 G47.0 9 will continue ambienno dose adjustment Mild depression 14891085 3 F32.A 017779 stable [id number] Ankur Massey [facility] [address] [facility],[place] [address] 06/04/2025 14:26:37 06/05/2025 09:30:37 Depression screening 785672372 Z13.[address] Body mass index 30+ - obesity 470328599 E66.9 5706170 stable Aversion t o food or drink 627825035 R63.39 2768278 Adult atte ntion deficit hyperactivity disorder 062104224 F90.9 474898 Nausea 695194923 R11.0 will set up with refills [id number] [facility] [address] [facility],[place] [address] 07/02/2025 14:00:27 07/02/2025 15:47:16 Depression screening 315091775 Z13.[address] Body mass index 30+ - obesity 174530916 E66.9 stable Adult atte ntion deficit hyperactivity disorder 925210409 F90.9 836430 Mild depression 76792752 3 F32.A stable [id number] Ankur Massey [facility] [address] [facility],[place] [address] 07/10/2025 12:24:52 07/12/2025 09:49:42 Closed fracture of right ankle 2627705999 2401265 S82.891A 2715478 refillswit ch to ibu 800 mg TID [id number] Ankur Massey DO [facility] [address] [facility] [address],Gina Small [place] [address] 08/06/2025 10:12:15 08/06/2025 12:05:28 Depression screening 015460971 Z13.31 [address]cont on buspar Closed fra cture of right ankle 3595658129 9025582 S82.891A closed trimalleol ar fracture of right ankle adjust to 400 mg TID of gabapentin switch out from celecoxib 200 mg to diclofenac 75 mg for inflammati onthe patient does Body mass index 30+ - obesity 464481806 E66.9 stable Health Concerns Section Related Observation LastModified by Organization Detai ls LastModified Time None Recorded Concern Status LastModified by Organization Details LastModified Time None Recorded Advance Directives Directive None Recorded Payers Insurance Date Sequence Insurance Name Policy Number Policy Vaughn Covered Member ID Vaughn Member ID Guarantor Name 08/06/2025 1 [facility] [employer] [id number] Ree Gleason [id number] Ree Farah 08/06/2025 1 [facility] Ree Farah [id number] Ree Farah Notes Date Note Type Note [...] time, all questions answered TJ GALINDO [address] [place], [address], [facility] 08/02/2025 13:14:18 5 text/html ROS [...] will seevs ADHD treatment TJ GALINDO [address] [place], [address], [facility] 06/04/2025 15:07:14 5 text/html ROS [...] on current dose of zepbound TJ GALINDO [address] [place] [address], [address], [facility] 07/02/2025 14:40:16 5 text/html ROS [...] meds at this time TJ GALINDO [address] [place], [address], [facility] 07/10/2025 15:01:27 5 text/html ROS [...] help with the pain TJ GALINDO [address] [facility], [place], [address], [facility] 08/06/2025 11:19:38 OBGyn Episode No OBEpisode recorded.
== END 2025-08-13 10:54 | disposition home or self-care (01) ==
LOC: HO.HOS 09:42
PROVIDERS: Visit Provider Physician Assistant
DX: Z47.89 Encounter for other orthopedic aftercare (principal); Z98.890 Other specified postprocedural states; Z87.81 Personal history of (healed) traumatic fracture
CPT/HCPCS: 29405; 99024

== ENCOUNTER → 2025-08-13 09:42 | Outpatient (BNVA) | payer OTHER, SELFPAY | PROVIDERS: Visit Provider Physician Assistant | DX: S82.891D Other fracture of right lower leg, subsequent encounter for closed fracture with routine healing (principal); Z98.890 Other specified postprocedural states | CPT/HCPCS: 29405 ==

== ENCOUNTER 2025-08-23 12:35 | Outpatient (REF) | payer OTHER, SELFPAY ==
--- NOTE | ~2025-08-23 | XR_ITS ---
EXAMINATION: XR ANKLE, RIGHT CLINICAL INFORMATION: M25.571 - Pain in right ankle and joints of right foot COMPARISON: None available. TECHNIQUE: AP, lateral, and mortise views of the right ankle. FINDINGS: Casting material overlies the right ankle, obscuring fine bony detail. There has been ORIF of the previously seen bimalleolar fracture with disruption of the ankle mortise. A posterior malleolar fracture is also visualized, nondisplaced. There has been zoroastrian of anatomic alignment, and zoroastrian of alignment of the mortise. There is lateral plate and screw fixation of the lateral malleolus. There are 2 compression screws within the medial malleolus. The hardware is intact and well seated. The talar dome remains intact. The subtalar joints appear normal. Dorsal and plantar spurs of the calcaneus again noted. The midfoot appears normal. There is diffuse soft tissue swelling, similar. Ankle joint effusion present. XR/XR ankle RT min 3V IMPRESSION: Status post ORIF of trimalleolar fracture dislocation with zoroastrian of anatomic alignment. Electronically signed by: Oneal Gross MD 08/23/2025 01:34 PM EST
--- OUTSIDE RECORDS SUMMARY | 2025-08-23 16:44 | XMS_ITS | Clinical Summary ---
Author Organization [facility] Address [address] [address] Phone Care Team Providers Care Mining Manager Name Role Phone Ankur Massey DO Primary Care Provider [phone] Ankur Massey DO Unavailable Encounters Date Type Department Care Team Description 07/18/2025 Orders Only [facility] [address] [place] [address] Homehealth, Interface ProviderMD from Last 3 Months [...] file Medical Devices Not on file Insurance [facility] EPO [facility] POS EPO [facility] POS EPO [facility] POS EPO [facility] EPO Care Teams Mining Manager Relationship Specialty Start Date End Date Ankur Massey DO [address] [place] [address] PCP - General 07/18/25 Ankur Massey DO [address] [place] [address] [email or web address] Insurance Assigned Provider 08/03/25 Additional Source Comments The information contained in this document represents components of the legal health record. It is not the complete legal health record.[facility]
== END 2025-08-23 12:36 | disposition home or self-care (01) ==
LOC: HO.HOSX 12:35
PROVIDERS: PCP Internal Medicine; Visit Provider Physician Assistant
DX: M25.571 Pain in right ankle and joints of right foot (principal); I10 Essential (primary) hypertension; Z98.890 Other specified postprocedural states; Z87.81 Personal history of (healed) traumatic fracture
CPT/HCPCS: 29405; 73610

== ENCOUNTER → 2025-08-23 12:35 | Outpatient (AMB) | payer OTHER, SELFPAY ==
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
[2025-08-23 12:46] VITALS: BMI 27.4
== END ==
LOC: HO.HOS 12:36
PROVIDERS: PCP Internal Medicine; Visit Provider Physician Assistant
DX: Z87.81 Personal history of (healed) traumatic fracture (principal); Z98.890 Other specified postprocedural states
CPT/HCPCS: 29405; 99024

== ENCOUNTER → 2025-08-23 12:55 | Outpatient (BNV) | payer OTHER, SELFPAY | PROVIDERS: PCP Internal Medicine; Visit Provider Radiology Diagnostic Radiology | DX: M25.571 Pain in right ankle and joints of right foot (principal) | CPT/HCPCS: 73610 ==

== ENCOUNTER 2025-08-29 08:36 | Outpatient (REF) | payer OTHER, SELFPAY ==
--- NOTE | ~2025-08-29 | XR_ITS ---
EXAMINATION: XR ANKLE 3 OR MORE VIEWS RIGHT HISTORY: M25.579 - Pain in unspecified ankle and joints of unspecified foot COMPARISON: Comparison is made with the prior examination dated 08/23/2025. FINDINGS: Three views of the right ankle are submitted. Osseous mineralization is normal. The patient is again noted to be status post internal fixation of a fracture of the distal fibula with a sideplate and multiple orthopedic screws as well as a fracture of the medial malleolus with 2 screws. The fibular fracture line is not well visualized. The medial malleolar fracture line remains visible. The posterior malleolar fracture appears healed. The joint spaces are preserved. The soft tissues are unremarkable. XR/XR ankle RT min 3V IMPRESSION: Internally fixed trimalleolar fracture of the right ankle as described. Electronically signed by: Michoacano Fonseca MD 08/29/2025 01:46 PM OL[facility]
== END 2025-08-29 08:37 | disposition home or self-care (01) ==
LOC: HO.HOSX 08:36
PROVIDERS: Visit Provider Physician Assistant
DX: Z98.890 Other specified postprocedural states (principal); Z87.81 Personal history of (healed) traumatic fracture; M25.571 Pain in right ankle and joints of right foot
CPT/HCPCS: 73610

== ENCOUNTER 2025-08-29 13:03 | Outpatient (AMB) | payer OTHER, SELFPAY ==
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
--- OUTSIDE RECORDS SUMMARY | 2025-08-29 19:44 | XMS_ITS | Clinical Summary ---
Author Organization [facility] Address [address] [address] Phone Care Team Providers Care Geoscience Laboratory Technician Name Role Phone Ankur Massey DO Primary Care Provider [phone] Ankur Massey DO Unavailable Encounters Date Type Department Care Team Description 07/18/2025 Orders Only [facility] [address] [place] [address] Homehealth, Interface ProviderMD from Last 3 Months [...] file Medical Devices Not on file [facility] POS EPO [facility] POS EPO [facility] EPO Care Teams Geoscience Laboratory Technician Relationship Specialty Start Date End Date Ankur Massey DO [address] [place] [address] PCP - General 07/18/25 Ankur Massey DO [address] [place] [address] [email or web address] Insurance Assigned Provider 08/03/25 Additional Source Comments The information contained in this document represents components of the legal health record. It is not the complete legal health record.[facility]
--- OUTSIDE RECORDS SUMMARY | 2025-08-29 19:48 | XMS_ITS | Continuity of Care Document ---
Author Organization [facility] Address [address] [facility] [place] [address] [place] [address] Assessment No assessment recorded. Plan of Treatment Reminders Order Date Submit Date Provider Last Modified By Organization Details Last Modified Time Details Appointments FOLLOW UP 15 2024 09:30A M TJ GALINDO Not available Not available Not available Lab None recorded. Referral None recorded. Procedures None recorded. Surgeries None recorded. Imaging None recorded. Medication Orders ondansetr on HCl 8 mg tablet 2024 025 DARIANA [facility], [address] [place], [address], 07/02/2025 14:28:07 Zepbound 12.5 mg/0.5 mL subcutane ous pen injector 2024 025 [email or web address] [facility], [address] [place], [address], 08/21/2025 10:23:27 Patient TargetsNo targets recorded. Patient InstructionsNo instructions recorded. Reason for Referral None Reported. Results Created Date Observation Date Name Description Value Unit Range Abnormal Flag Note LastModifiedBy Organization Detail LastModifiedTime 07/08/2007/08/2025 XR, knee No observ ation record ed. [email or web address] [facility] (Medical Records) [address] [place], [address], 07/08/2025 13:28:46 07/08/2007/08/2025 XR, ankle No observ ation record ed. [email or web address] [facility] (Medical Records) [address] [facility] [place], [address], 07/08/2025 13:28:57 07/08/2007/08/2025 XR, ankle No observ ation record ed. [email or web address] (Medical Records) [address] [place], [address], 07/08/2025 13:29:09 07/12/20 25 07/11/2025 XR, ankle No observ ation record ed. [email or web address] [address] [place], [address], 07/12/2025 10:37:53 07/17/20 25 07/17/2025 fluor oscop y (PROC ) No observ ation record ed. [address] (Medical Records) [address] [facility] [place], [address], 07/17/2025 16:25:49 07/17/20 25 07/17/2025 fluor oscop y (PROC ) No observ ation record ed. [address] (Medical Records) [address] [facility] [place], [address], 07/17/2025 16:26:13 08/23/20 25 08/23/2025 XR, ankle , 3 or more view No observ ation record ed. [email or web address] [address] [place], [address], 08/23/2025 13:55:34 Result Notes None recorded. Problems Name Problem SNOMED Code Status Onset Date Resolution Date Notes Provider Name and Address Organization Details Recorded Time Asthma 803591765 Active 2017 [facility] 14:21:55 History of depressio n 821274216 Active 2017 [facility] 14:22:01 Acid reflux 685431251 [facility] 8 14:22:15 Psoriasis 0966437 Active 2017 Juana Quinonez NP, S [address] [place] [address], [address], [facility] 8 11:45:40 Thyroid nodule 541300907 Active 2017 Juana Quinonez NP, S [address] [place] [address], [address], [facility] 8 11:45:50 Pain of left hip joint 662570403267 100 Active 2021 TJ GALINDO [address] [place] [address], [address], [facility] 2 10:39:06 Candidias is of skin 86591905 Active 2021 TJ GALINDO [address] [place] [address], [address], [facility] 2 10:40:16 Polycysti c ovary syndrome 729469797 Active 2022 TJ GALINDO [address] [place] [address], [address], [facility] 3 12:10:08 Hyperlipi demia 85927826 Active 2022 TJ GALINDO [address] [place] [address], [address], [facility] 3 12:10:23 Insomnia 321635242 Active 2022 TJ GALINDO [address] [place] [address], [address], [facility] 3 12:17:53 Chronic back pain 333684834 Active 2022 TJ GALINDO [address] [place] [address], [address], [facility] 3 12:20:10 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 536582147 Active 2022 TJ GALINDO [address] [place] [address], [address], [facility] 3 14:05:44 Depressiv e disorder 94826625 Active 2023 TJ GALINDO [address] [place] [address], [address], [facility] 4 14:09:02 Thoracic back pain 101245372 Active 2023 TJ GALINDO [address] [place] [address], [address], [facility] 4 14:11:40 Irritable bowel syndrome 87211010 Active 2023 TJ GALINDO [address] [place] [address], [address], [facility] 4 10:13:52 Exacerbat ion of mild persisten t asthma 136566776 Active 2023 TJ GALINDO [address] [place] [address], [address], [facility] 4 10:43:51 Nausea 823642132 Active 2024 Ankur Massey, [address] [place] [address], [address], [facility] 5 22:59:03 Slow transit constipat ion 75308476 Active 2024 TJ GALINDO [address] [place] [address], [address], [facility] 5 11:28:06 Uncomplic ated severe persisten t asthma 191299655 Active 2024 TJ GALINDO [address] [place] [address], [address], [facility] 5 11:28:29 Mild depressio n 392754040 Active 2024 TJ GALINDO [address] [place] [address], [address], [facility] 14:52:09 Body mass index 30+ - obesity 939416683 Active 2024 TJ GALINDO [address] [place] [address], [address], [facility] 5 14:41:22 Adult attention deficit hyperacti vity disorder 719661494 Active 2024 TJ GALINDO [address] [place] [address], [address], [facility] 14:53:06 Aversion to food or drink 770309318 Active 2024 TJ GALINDO [address] [place] [address], [address], [facility] 5 15:01:49 Closed fracture of right ankle 939057579376 03650 Active 2024 TJ GALINDO [address] [place] [address], [address], [facility] 14:56:55 Problem Notes None recorded. Procedures Surgical History Date Name Laterality Status Provider Name and Address Organization Details Recorded Time 995 Cholecystectomy completed Juana Quinonez NP, S [address] [place] [address], [address], [facility] 12/29/2017 11:47:57 985 Remove tonsils and adenoids completed Juana Quinonez NP, S [address] [place] [address], [address], [facility] 12/29/2017 11:47:40 Imaging Results None recorded. Procedure Notes None recorded. Medical Equipment None Reported. Allergies Allergen ID Allergen Name Allergen Category Reaction Reaction Severity Criticality Documentation Date Start Date Code Code System Note Provider Name and Address Organization Details Recorded Time 7578 Product containin g 3-hydroxy -3-methyl glutaryl- coenzyme A reductase inhibitor (product) medicatio n Not available Not available Not available 08/06/2024 39685 009 SNOMED TJ GALINDO [address] [place] [address], [address], [facility] 4 10:49:35 Medications Name Sig Start Date [...] Not Avai lable gabapentin 400 mg capsule TAKE ONE CAPSULE BY MOUTH THREE TIMES A DAY DIRECTED active Not Available Not [...] CAPSULE BY MOUTH THREE TIMES A DAY 08/21 completed Not Available Not Available Not Available diclofenac sodium 75 mg tablet,ayan yed release TAKE ONE TABLET BY MOUTH TWICE A DAY WITH MEALS 08/21 completed Not Available Not Available Not Available [...] DIRECTED BY [facility] T AT [facility]. 02/19 completed Not Available Not Available [...] 10 mg/0.5 mL subcutaneou s pen injector Inject 10 mg every week by subcutane ous route for 30 days. 2024 active Not Available Not Available Not Avai lable Zepbound 5 mg/0.5 mL subcutaneou s pen injector INJECT 5MG SUBCUTANE OUSLY EVERY WEEK 04/26 completed Not Available Not Available Not Available Zepbound 2.5 mg/0.5 mL subcutaneou s pen injector active Not Available Not Available Not Available Zepbound 12.5 mg/0.5 mL subcutaneou s pen injector INJECT 12.5 MG EVERY WEEK BY SUBCUTANE OUS ROUTE 08/21 completed Not Available Not Available Not Available Zepbound 7.5 mg/0.5 mL subcutaneou s pen injector INJECT 7.5 MG EVERY WEEK BY SUBCUTANE OUS ROUTE DIRECTED 06/04 completed Not Available Not Available Not Available Vitals Date Recorded Body height Body mass index (BMI) Body weight Heart rate Oxygen saturation Systolic And Diastolic Provider Name and Address Organization Details Last Updated DateTime 165.74 cm 31 kg/m2 67960.3 7 g 80 /min 98 % 128/80 mm[Hg] Stephanie Boykin [facility] 5 14:32:05 Social History Question [...] mcg/0.3 mL dose 1 completed Gloria valdivia [facility] 07/10/2021 15:54:36 COVID-19, mRNA, LNP-S, PF, 30 mcg/0.3 mL dose 1 completed Gloria valdivia [facility] 07/10/2021 15:54:42 COVID-19, mRNA, LNP-S, PF, 30 mcg/0.3 mL dose 1 completed Gloria valdivia [facility] 07/12/2022 08:11:18 Influenza, split virus, quadrivalent, preservative 0 completed Gloria valdivia [facility] 07/12/2022 08:11:31 Influenza, split virus, quadrivalent, preservative 10/27/202 1 completed Gloria valdivia [facility] 07/12/2022 08:11:38 Past Encounters Encounter ID Performer Location Encounter Start Date Encounter Closed Date Diagnosis/Indication Diagnosis SNOMED-CT Code Diagnosis ICD10 Code Diagnosis IMO Codes Diagnosis Note [id number] Ankur MorfinJhonatan Massey DO [facility] [address] [facility],[place] [address] 06/04/2025 14:26:37 06/05/2025 09:30:37 Depression screening 350128260 Z13.[address] Body mass index 30+ - obesity 495052126 E66.9 0133580 stable Aversion t o food or drink 815741859 R63.39 6846482 Adult atte ntion deficit hyperactivity disorder 898608844 F90.9 472715 Nausea 249170712 R11.0 will set up with refills Health Concerns Section Related Observation LastModified by Organization Detai ls LastModified Time None Recorded Concern Status LastModified by Organization Details LastModified Time None Recorded Payers Encounter Date Sequence Insurance Name Policy Number Policy Vaughn Covered Member ID Vaughn Member ID Guarantor Name 06/04/2025 1 [facility] Ree Farah [id number] Ree Farah Notes Date Note Type [...] will seevs ADHD treatment TJ GALINDO [address] [facility], [place], [address], [facility] 06/04/2025 15:07:14 OBGyn Episode No OBEpisode recorded.
--- OUTSIDE RECORDS SUMMARY | 2025-08-29 19:53 | XMS_ITS | Continuity of Care Document ---
Author Organization [facility], [facility] Address [address] [facility] [place] [address] [place] [address] Assessment No assessment recorded. Plan of Treatment Reminders Order Date Submit Date Provider Last Modified By Organization Details Last Modified Time Details Appointments FOLLOW UP 15 2024 09:30A M TJ GALINDO Not available Not available Not available Lab None recorded. Referral None recorded. Procedures None recorded. Surgeries None recorded. Imaging None recorded. Medication Orders buspirone 10 mg tablet 2024 [facility] [address] [place], [address], 07/02/2025 14:37:55 dextroamp hetamine- amphetami ne 10 mg tablet 2024 [facility], [address] [place], [address], 08/06/2025 11:02:36 Zepbound 12.5 mg/0.5 mL subcutane ous pen injector 2024 [facility], [address] [place], [address], 08/21/2025 10:23:27 Patient TargetsNo targets recorded. Patient InstructionsNo instructions recorded. Reason for Referral None Reported. Results Created Date Observation Date Name Description Value Unit Range Abnormal Flag Note LastModifiedBy Organization Detail LastModifiedTime 07/08/20 25 07/08/2025 XR, knee No observ ation record ed. [email or web address] [facility] (Medical Records) [address] [place], [address], 07/08/2025 13:28:46 07/08/2007/08/2025 XR, ankle No observ ation record ed. [email or web address] (Medical Records) [address] [place], [address], 07/08/2025 13:28:57 07/08/2007/08/2025 XR, ankle No observ ation record ed. [email or web address] (Medical Records) [address] [place], [address], 07/08/2025 13:29:09 07/12/20 25 07/11/2025 XR, ankle No observ ation record ed. [email or web address] [address] [place], [address], 07/12/2025 10:37:53 07/17/2007/17/2025 fluor oscop y (PROC ) No observ ation record ed. [address] (Medical Records) [address] [place], [address], 07/17/2025 16:25:49 07/17/20 25 07/17/2025 fluor oscop y (PROC ) No observ ation record ed. [address] (Medical Records) [address] [place], [address], 07/17/2025 16:26:13 08/23/20 25 08/23/2025 XR, ankle , 3 or more view No observ ation record ed. [email or web address] [address] [place], [address], 08/23/2025 13:55:34 Result Notes None recorded. Problems Name Problem SNOMED Code Status Onset Date Resolution Date Notes Provider Name and Address Organization Details Recorded Time Asthma 884561815 Active 2017 [facility] 14:[facility] History of depressio n 397798337 Active 2017 [facility] 8 14:22:01 Acid reflux 084474687 Active 2017 [facility] 8 14:22:15 Psoriasis 8421939 Active 2017 Juana Quinonez NP, S [address] [place] [address], [address], [facility] 8 11:45:40 Thyroid nodule 934167586 Active 2017 Juana Quinonez NP, S [address] [place] [address], [address], [facility] 8 11:45:50 Pain of left hip joint 056413729828 100 Active 2021 TJ GALINDO [address] [place] [address], [address], [facility] 2 10:39:06 Candidias is of skin 76700057 Active 2021 TJ GALINDO [address] [place] [address], [address], [facility] 2 10:40:16 Polycysti c ovary syndrome 675226340 Active 2022 TJ GALINDO [address] [place] [address], [address], [facility] 3 12:10:08 Hyperlipi demia 93213432 Active 2022 TJ GALINDO [address] [place] [address], [address], [facility] 3 12:10:23 Insomnia 763642330 Active 2022 TJ GALINDO [address] [place] [address], [address], [facility] 3 12:17:53 Chronic back pain 020785736 Active 2022 TJ GALINDO [address] [place], [address], [facility] 3 12:20:10 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 890273893 Active 2022 TJ GALINDO [address] [place], [address], [facility] 3 14:05:44 Depressiv e disorder 11997892 Active 2023 TJ GALINDO [address] [place] [address], [address], [facility] 4 14:09:02 Thoracic back pain 356280218 Active 2023 TJ GALINDO [address] [place] [address], [address], [facility] 4 14:11:40 Irritable bowel syndrome 92034681 Active 2023 TJ GALINDO [address] [place] [address], [address], [facility] 4 10:13:52 Exacerbat ion of mild persisten t asthma 122776821 Active 2023 TJ GALINDO [address] [place] [address], [address], [facility] 4 10:43:51 Nausea 539867193 Active 2024 Ankur Massey DO [address] [place] [address], [address], [facility] 5 22:59:03 Slow transit constipat ion 79987664 Active 2024 TJ GALINDO [address] [place] [address], [address], [facility] 5 11:28:06 Uncomplic ated severe persisten t asthma 916061631 Active 2024 TJ GALINDO [address] [place] [address], [address], [facility] 11:28:29 Mild depressio n 616322208 Active 2024 TJ GALINDO [address] [place] [address], [address], [facility] 14:52:09 Body mass index 30+ - obesity 008842027 Active 2024 TJ GALINDO [address] [place] [address], [address], [facility] 14:41:22 Adult attention deficit hyperacti vity disorder 939099520 Active 2024 TJ GALINDO [address] [place] [address], [address], [facility] 14:53:06 Aversion to food or drink 361337228 Active 2024 TJ GALINDO [address] [place] [address], [address], [facility] 15:01:49 Closed fracture of right ankle 350650831144 16972 Active 2024 TJ GALINDO [address] [place] [address], [address], [facility] 14:56:55 Problem Notes None recorded. Procedures Surgical History Date Name Laterality Status Provider Name and Address Organization Details Recorded Time 995 Cholecystectomy completed Juana Quinonez NP, Ilan [address] [place] [address], [address], [facility] 12/29/2017 11:47:57 985 Remove tonsils and adenoids completed Juana Quinonez NP, Ilan [address] [place] [address], [address], [facility] 12/29/2017 11:47:40 Imaging [...] Not available Not available Not available 08/06/2024 [id number] 009 TJ MADSEN [address] [place], [address], [facility] 4 10:49:35 Medications Name Sig [...] TAKE ONE CAPSULE BY MOUTH EVERY DAY 07/12 /2024 completed Not Available Not Available Not Available [...] DIRECTED BY [facility]OENT ER[facility] DEPARTMEN T AT [facility]. 02/19 completed Not Available Not Available Not [...] Updated DateTime 5 165.74 cm 30.1 kg/m2 24593.8 1 g 79 /min 97 % 128/80 mm[Hg] Stephanie Gonzalezmond [facility] 5 14:11:28 Social History [...] Organization Details LastModified Time Father Hypercholest erolemia jingki Not available 2017 11:49:18 Mother Obesity eskawski [...] mcg/0.3 mL dose 1 completed Gloria valdivia [facility] 07/10/2021 15:54:36 COVID-19, mRNA, LNP-S, PF, 30 mcg/0.3 mL dose 1 completed Gloria valdivia [facility] 07/10/2021 15:54:42 COVID-19, mRNA, LNP-S, PF, 30 mcg/0.3 mL dose 1 completed Gloria valdivia [facility] 07/12/2022 08:11:18 Influenza, split virus, quadrivalent, preservative 0 completed Gloria Julio shea, [facility] 07/12/2022 08:11:31 Influenza, split virus, quadrivalent, preservative 1 [facility] 07/12/2022 08:11:38 Past Encounters Encounter ID Performer Location Encounter Start Date Encounter Closed Date Diagnosis/Indication Diagnosis SNOMED-CT Code Diagnosis ICD10 Code Diagnosis IMO Codes Diagnosis Note [id number] Ankur MorfinJhonatan Massey [facility] [address] [facility],[place] [address] 06/04/2025 14:26:37 06/05/2025 09:30:37 Depression screening 588123775 Z13.[address] Body mass index 30+ - obesity 209189496 E66.9 7293841 stable Aversion t o food or drink 104374852 R63.39 4848790 Adult atte ntion deficit hyperactivity disorder 611652055 F90.9 484080 Nausea 851293998 R11.0 will set up with refills [id number] Ankur Massey [facility] [address] [facility], [place] [address] 07/02/2025 14:00:27 07/02/2025 15:47:16 Depression screening 938193205 Z13.[address] Body mass index 30+ - obesity 932303773 E66.9 stable Adult atte ntion deficit hyperactivity disorder 115881426 F90.9 662659 Mild depression 08653677 3 F32.A stable Health Concerns Section Related Observation LastModified by Organization Detai ls LastModified Time None Recorded Concern Status LastModified by Organization Details LastModified Time None Recorded Payers Encounter Date Sequence Insurance Name Policy Number Policy Vaughn Covered Member ID Vaughn Member ID Guarantor Name 07/02/2025 1 [facility] Ree Farah [id number] Ree Farah Notes Date Note Type Note Provider Name a fl Address Organization Details Recorded Time 07/02/2025 text/html [...] current dose of zepbound TJ GALINDO [address] [facility], [place], [address], [facility] 07/02/2025 14:40:16 OBGyn Episode No OBEpisode recorded.
--- OUTSIDE RECORDS SUMMARY | 2025-08-29 19:53 | XMS_ITS | Continuity of Care Document ---
Author Organization [facility], [facility] Address [address] [facility] [place] [address] [place] [address] Assessment No assessment recorded. Plan of Treatment Reminders Order Date Submit Date Provider Last Modified By Organization Details Last Modified Time Details Appointments FOLLOW UP 15 2024 09:30A M TJ GALINDO Not available Not available Not available Lab None recorded. Referral None recorded. Procedures None recorded. Surgeries None recorded. Imaging None recorded. Medication Orders dextroamp hetamine- amphetami ne 10 mg tablet 2024 025 [facility], [address] [place], [address], 08/21/2025 10:31:12 Zepbound 10 mg/0.5 mL subcutane ous pen injector 2024 025 [facility], [address] [place], [address], 08/21/2025 10:23:21 Patient TargetsNo targets recorded. Patient InstructionsNo instructions recorded. Reason for Referral None Reported. Results Created Date Observation Date Name Description Value Unit Range Abnormal Flag Note LastModifiedBy Organization Detail LastModifiedTime 08/23/20 25 08/23/2025 XR, ankle , 3 or more view No observ ation record ed. [email or web address] [address] [place], [place], , 08/23/2025 13:55:34 Result Notes None recorded. Problems Name Problem SNOMED Code Status Onset Date Resolution Date Notes Provider Name and Address Organization Details Recorded Time Asthma 584247364 Active 2017 Vannesa valdivia [facility] 8 14:21:55 History of depressio n 725669916 Active 2017 Vannesa valdivia [facility] 8 14:22:01 Acid reflux 532614584 Active 2017 Vannesa valdivia [facility] 8 14:22:15 Psoriasis 5061638 Active 2017 Juana Quinonez NP, S [address] [place] [address], [address], [facility] 8 11:45:40 Thyroid nodule 035353179 Active 2017 Juana Quinonez NP, S [address] [place] [address], [address], [facility] 8 11:45:50 Pain of left hip joint 438732647798 100 Active 2021 TJ GALINDO [address] [place] [address], [address], [facility] 2 10:39:06 Candidias is of skin 00477705 Active 2021 TJ GALINDO [address] [place] [address], [address], [facility] 2 10:40:16 Polycysti c ovary syndrome 010482700 Active 2022 TJ GALINDO [address] [place] [address], [address], [facility] 3 12:10:08 Hyperlipi demia 76493539 Active 2022 TJ GALINDO [address] [place] [address], [address], [facility] 3 12:10:23 Insomnia 989699178 Active 2022 TJ GALINDO [address] [place] [address], [address], [facility] 3 12:17:53 Chronic back pain 444379663 Active 2022 TJ GALINDO [address] [place] [address], [address], [facility] 3 12:20:10 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 829225122 Active 2022 TJ GALINDO [address] [place] [address], [address], [facility] 3 14:05:44 Depressiv e disorder 31425850 Active 2023 TJ GALINDO [address] [place] [address], [address], [facility] 4 14:09:02 Thoracic back pain 272352627 Active 2023 TJ GALINDO [address] [place] [address], [address], [facility] 4 14:11:40 Irritable bowel syndrome 39399562 Active 2023 TJ GALINDO [address] [place] [address], [address], [facility] 4 10:13:52 Exacerbat ion of mild persisten t asthma 897322565 Active 2023 TJ GALINDO [address] [place] [address], [address], [facility] 4 10:43:51 Nausea 129443179 Active 2024 Ankur Massey DO [address] [place] [address], [address], [facility] 5 22:59:03 Slow transit constipat ion 76200499 Active 2024 TJ GALINDO [address] [place] [address], [address], [facility] 5 11:28:06 Uncomplic ated severe persisten t asthma 145364382 Active 2024 TJ GALINDO [address] [place] [address], [address], [facility] 11:28:29 Mild depressio n 090407898 Active 2024 TJ GALINDO [address] [place] [address], [address], [facility] 14:52:09 Body mass index 30+ - obesity 749563675 Active 2024 TJ GALINDO [address] [place] [address], [address], [facility] 14:41:22 Adult attention deficit hyperacti vity disorder 140065720 Active 2024 TJ GALINDO [address] [place] [address], [address], [facility] 14:53:06 Aversion to food or drink 175907281 Active 2024 TJ GALINDO [address] [place] [address], [address], [facility] 15:01:49 Closed fracture of right ankle 078709918678 09467 Active 2024 TJ GALINDO [address] [place] [address], [address], [facility] 14:56:55 Problem Notes None recorded. Procedures Surgical History Date Name Laterality Status Provider Name and Address Organization Details Recorded Time 995 Cholecystectomy completed Juana Quinonez NP, S [address] [place] [address], [address], [facility] 12/29/2017 11:47:57 985 Remove tonsils and adenoids completed Juana Quinonez NP, S [address] [place] [address], [address], [facility] 12/29/2017 11:47:40 Imaging [...] Not available Not available Not available 08/06/2024 [id number] 009 TJ MADSEN [address] [place], [address], [facility] 10:49:35 Medications Name Sig Start [...] Available Not Available Not Available amoxicillin 875 mg-mackwallace m clavulanate 125 mg tablet Take 1 [...] DIRECTED BY [facility]OENT ER[facility] DEPARTMEN T AT [facility]. 02/19 completed Not Available Not Available [...] Not Available Vitals Date Recorded Body height Heart rate Oxygen saturation Systolic And Diastolic Provider Name and Address Organization Details Last Updated DateTime 08/21/2025 165.74 cm 121 /min 98 % 120/78 mm[Hg] Stephanie Gonzalezmond [facility] 08/21/2025 10:14:04 Social History Question Answer Notes LastModified by [...] Organization Details LastModified Time Father Hypercholest erolemia emelywski Not available 2017 11:49:18 Mother Obesity eskawski [...] mcg/0.3 mL dose 1 completed Gloria valdivia [facility] 07/10/2021 15:54:36 COVID-19, mRNA, LNP-S, PF, 30 mcg/0.3 mL dose 1 completed Gloria valdivia [facility] 07/10/2021 15:54:42 COVID-19, mRNA, LNP-S, PF, 30 mcg/0.3 mL dose 1 completed Gloria valdivia [facility] 07/12/2022 08:11:18 Influenza, split virus, quadrivalent, preservative 0 completed Gloria valdivia [facility] 07/12/2022 08:11:31 Influenza, split virus, quadrivalent, preservative 1 completed Gloria valdivia [facility] 07/12/2022 08:11:38 Past Encounters Encounter ID Performer Location Encounter Start Date Encounter Closed Date Diagnosis/Indication Diagnosis SNOMED-CT Code Diagnosis ICD10 Code Diagnosis IMO Codes Diagnosis Note [id number] Ankur Massey DO [facility] Medicine [address] [facility], [place] [address] 08/06/2025 10:12:15 08/06/2025 12:05:28 Depression screening 509283780 Z13.[address] [facility] Closed fra cture of right ankle 4939205836 1548762 S82.891A closed trimalleol ar fracture of right ankle adjust to 400 mg TID of gabapentin switch out from celecoxib 200 mg to diclofenac 75 mg for inflammati onthe patient does Body mass index 30+ - obesity 201486360 E66.9 stable [id number] TJ GALINDO [facility] Medicine [address] [facility],[place] [facility] [place] [address] 08/21/2025 10:06:55 08/23/2025 16:21:02 Body mass index 30+ - obesity 595213126 E66.9 stable Closed fra cture of right ankle 0098605011 9906224 S82.891A 9267706 closed trimalleol ar fracture of right ankle adjust to 400 mg TID of gabapentin switch out from celecoxib 200 mg to diclofenac 75 mg for inflammati onthe patient does Mild depression 88385470 3 F32.A 494297 stable Adult atte ntion deficit hyperactivity disorder 956891762 F90.9 restart medication , same dose > will increase based on response Health Concerns Section Related Observation LastModified by Organization Detai ls LastModified Time None Recorded Concern Status LastModified by Organization Details LastModified Time None Recorded Payers Encounter Date Sequence Insurance Name Policy Number Policy Vaughn Covered Member ID Vaughn Member ID Guarantor Name 08/21/2025 1 [facility] Ree Farah [id number] Ree Farah Notes Date Note Type Note Provider Name a nd Address Organization Details Recorded Time 08/21/2025 text/html ROS as noted in the HPI 2 week f/u BMI: needs lower dose, the patient has been having gastric issues ie diarrhea, nauseawill send to zepbound 10 mg alt closed f/x R ankle: has appointment next week to f/u about her anklethe patient has routine healing of her f/x ADHD: would like to restart medication, start at the 10 mg again, since she is more sedentary and isn't working, but is having issues with concentration throughout the yearthe patient will update about progress gabapentin can continue as well, have her take two prior to bedif needed I can give her a 100 mg if the 800 mg is high > 500 mg or 600 mg TJ GALINDO [address] [place] [address], [place], [address], [facility] 08/21/2025 10:48:59 OBGyn Episode No OBEpisode recorded.
--- OUTSIDE RECORDS SUMMARY | 2025-08-29 19:55 | XMS_ITS | Continuity of Care Document ---
Author Organization [facility], [facility] Address [address] [place] [address] [place] [address] Assessment No assessment recorded. Plan of Treatment Reminders Order Date Submit Date Provider Last Modified By Organization Details Last Modified Time Details Appointments FOLLOW UP 15 2024 09:30A M TJ GALINDO Not available Not available Not available Lab None recorded. Referral None recorded. Procedures None recorded. Surgeries None recorded. Imaging None recorded. Medication Orders gabapenti n 400 mg capsule 2024 [place] [facility], [address] [place], [address], 08/06/2025 10:53:31 diclofena c sodium 75 mg tablet,de layed release 2024 [place] [facility], [address] [place], [address], 08/21/2025 10:13:26 Zepbound 12.5 mg/0.5 mL subcutane ous pen injector 2024 [place] [facility], [address] [place], [address], 08/21/2025 10:23:36 Patient TargetsNo targets recorded. Patient InstructionsNo instructions recorded. Reason for Referral None Reported. Results Created Date Observation Date Name Description Value Unit Range Abnormal Flag Note LastModifiedBy Organization Detail LastModifiedTime 07/08/20 25 07/08/2025 XR, knee No observ ation record ed. [email or web address] [facility] (Medical Records) [address] [place], [address], 07/08/2025 13:28:46 07/08/20 25 07/08/2025 XR, ankle No observ ation record ed. [email or web address] [facility] (Medical Records) [address] [place], [address], 07/08/2025 13:28:57 07/08/2007/08/2025 XR, ankle No observ ation record ed. [email or web address] [facility] (Medical Records) [address] [place], [address], 07/08/2025 13:29:09 07/12/20 25 07/11/2025 XR, ankle No observ ation record ed. [email or web address] [address] [place], [address], 07/12/2025 10:37:53 07/17/2007/17/2025 fluor oscop y (PROC ) No observ ation record ed. [address] (Medical Records) [address] [place], [address], 07/17/2025 16:25:49 07/17/20 25 07/17/2025 fluor oscop y (PROC ) No observ ation record ed. [address] (Medical Records) [address] [place], [address], 07/17/2025 16:26:13 08/23/20 25 08/23/2025 XR, ankle , 3 or more view No observ ation record ed. [email or web address] [address] [place], [address], 08/23/2025 13:55:34 Result Notes None recorded. Problems Name Problem SNOMED Code Status Onset Date Resolution Date Notes Provider Name and Address Organization Details Recorded Time Asthma 529293983 Active 2017 [facility] 14:21:55 History of depressio n 670358725 Active 2017 [facility] 8 14:22:01 Acid reflux 681501703 Active 2017 [facility] 14:22:15 Psoriasis 3499797 Active 2017 Juana Quinonez NP, S [address] [place] [address], [address], [facility] 8 11:45:40 Thyroid nodule 489883471 Active 2017 Juana Quinonez NP, S [address] [place] [address], [address], [facility] 8 11:45:50 Pain of left hip joint 668309117276 100 Active 2021 TJ GALINDO [address] [place] [address], [address], [facility] 2 10:39:06 Candidias is of skin 42789311 Active 2021 TJ GALINDO [address] [place] [address], [address], [facility] 2 10:40:16 Polycysti c ovary syndrome 165075471 Active 2022 TJ GALINDO [address] [place] [address], [address], [facility] 3 12:10:08 Hyperlipi demia 54567946 Active 2022 TJ GALINDO [address] [place] [address], [address], [facility] 3 12:10:23 Insomnia 057153010 Active 2022 TJ GALINDO [address] [place] [address], [address], [facility] 3 12:17:53 Chronic back pain 529443147 Active 2022 TJ GALINDO [address] [place] [address], [address], [facility] 3 12:20:10 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 519517870 Active 2022 TJ GALINDO [address] [place] [address], [address], [facility] 3 14:05:44 Depressiv e disorder 54604547 Active 2023 TJ GALINDO [address] [place] [address], [address], [facility] 4 14:09:02 Thoracic back pain 435542262 Active 2023 TJ GALINDO [address] [place] [address], [address], [facility] 4 14:11:40 Irritable bowel syndrome 57227387 Active 2023 TJ GALINDO [address] [place] [address], [address], [facility] 4 10:13:52 Exacerbat ion of mild persisten t asthma 562203122 Active 2023 TJ GALINDO [address] [place] [address], [address], [facility] 4 10:43:51 Nausea 567005201 Active 2024 Ankur Massey DO [address] [place] [address], [address], [facility] 5 22:59:03 Slow transit constipat ion 73503982 Active 2024 TJ GALINDO [address] [place] [address], [address], [facility] 5 11:28:06 Uncomplic ated severe persisten t asthma 007246858 Active 2024 TJ GALINDO [address] [place] [address], [address], [facility] 11:28:29 Mild depressio n 174940866 Active 2024 TJ GALINDO [address] [place] [address], [address], [facility] 14:52:09 Body mass index 30+ - obesity 237304343 Active 2024 TJ GALINDO [address] [place] [address], [address], [facility] 14:41:22 Adult attention deficit hyperacti vity disorder 174526103 Active 2024 TJ GALINDO [address] [place] [address], [address], [facility] 14:53:06 Aversion to food or drink 430220752 Active 2024 TJ GALINDO [address] [place] [address], [address], [facility] 15:01:49 Closed fracture of right ankle 073804790189 66869 Active 2024 TJ GALINDO [address] [place] [address], [address], [facility] 14:56:55 Problem Notes None recorded. Procedures Surgical History Date Name Laterality Status Provider Name and Address Organization Details Recorded Time 995 Cholecystectomy completed Juana Quinonez NP, Ilan [address] [place] [address], [address], [facility] 12/29/2017 11:47:57 985 Remove tonsils and adenoids completed Juana Quinonez NP, Ilan [address] [place] [address], [address], [facility] 12/29/2017 11:47:40 Imaging Results None recorded. Procedure Notes None recorded. Medical Equipment None Reported. Allergies Allergen ID Allergen Name Allergen Category Reaction Reaction Severity Criticality Documentation Date Start Date Code Code System Note Provider Name and Address Organization Details Recorded Time 8298 Product containin g 3-hydroxy -3-methyl glutaryl- coenzyme A reductase inhibitor (product) medicatio n Not available Not available Not available 08/06/2024 97815 009 TJ MADSEN [address] [place], [address], [facility] 4 10:49:35 Medications Name Sig [...] DIRECTED BY GASTROENT EROLOGY DEPARTMEN T AT [facility]. 02/19 completed Not Available Not [...] % 74 /min 110/72 mm[Hg] ANNIKA HESTER [facility] 08/06/2025 10:24:03 Social History [...] mcg/0.3 mL dose [address] [facility] 07/10/2021 15:54:36 COVID-19, mRNA, LNP-S, PF, 30 mcg/0.3 mL dose [address] [facility] 07/10/2021 15:54:42 COVID-19, mRNA, LNP-S, PF, 30 mcg/0.3 mL dose [address] [facility] 07/12/2022 08:11:18 Influenza, split virus, quadrivalent, preservative [address] [facility] 07/12/2022 08:11:31 Influenza, split virus, quadrivalent, preservative [address] [facility] 07/12/2022 08:11:38 Past Encounters Encounter ID Performer Location Encounter Start Date Encounter Closed Date Diagnosis/Indication Diagnosis SNOMED-CT Code Diagnosis ICD10 Code Diagnosis IMO Codes Diagnosis Note [id number] Ankur Massey [facility] [address] [facility],[place] [address] 07/10/2025 12:24:52 07/12/2025 09:49:42 Closed fracture of right ankle 3320038216 2408943 S82.891A [id number] refillswit ch to ibu 800 mg TID [id number] Ankur Massey [facility] [address] [facility] [address] 08/06/2025 10:12:15 08/06/2025 12:05:28 Depression screening 725578130 Z13.[address] on buspar Closed fra cture of right ankle 5615600342 7375156 S82.891A closed trimalleol ar fracture of right ankle adjust to 400 mg TID of gabapentin switch out from celecoxib 200 mg to diclofenac 75 mg for inflammati onthe patient does Body mass index 30+ - obesity 125270298 E66.9 stable Health Concerns Section Related Observation LastModified by Organization Detai ls LastModified Time None Recorded Concern Status LastModified by Organization Details LastModified Time None Recorded Payers Encounter Date Sequence Insurance Name Policy Number Policy Vaughn Covered Member ID Vaughn Member ID Guarantor Name 08/06/2025 1 [facility] [place] Ree Farah [id number] Ree Farah Notes Date Note Type [...] help with the pain TJ GALINDO [address] [facility], [place], [address], [facility] 08/06/2025 11:19:38 OBGyn Episode No OBEpisode recorded.
--- OUTSIDE RECORDS SUMMARY | 2025-08-29 19:55 | XMS_ITS | Patient Health Record ---
Author Organization [facility] Address [address] [place] [address] Care Team Providers Care Supervisor Asphalt Paving Name Role Phone Tita (RETIRED) Geo BOLDEN Primary Care Provide r Michael Lafleur Jr Unavailable [phone] Reason For Referral No Information Medications Medication SIG (Take, Route, Frequency, Duration) Notes Start Date End Date Status Milk of Magnesia A ctive Bentyl 20 MG Tablet 1 tablet Orally Two to Four times a day; Duration: 30 day(s) 12/10/2011 Active Colace Active Ventolin HFA Active MoviPrep 100 GM Solution Reconstituted as directed before colonoscopy Orally; Duration: 1 dose 12/10/2011 Active Social History Tobacco Use: Social History Observation Description Date Details (start date - stop date) Never Smoker NA - NA Social History Drugs/Alcohol: Social Info Question Answer Notes Alcohol Screen Did you have a drink containing alcohol in the past year? Yes Points 2 Interpretation Negative How often did you have a drink containing alcohol in the past year? 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 Alcohol use is described as occasional. Problems Problem Type SNOMED Code ICD Code Onset Dates Problem Status W/U Status Risk Notes Problem Hemorrhage of rectum and anus (449805345) Hemorrhage of rectum and anus (569.3) Active confirmed Problem Left lower quadrant pain (523049037) Abdominal pain, left lower quadrant (789.04) Active confirmed Plan Of Treatment Future Test Test Name Order Date COLONOSCOPY 12/10/2011 Insurance Providers Payer Name Payer Address Payer Phone Subscriber Number Group Number Insured Name Patient Relationship to Insured Coverage Start Date Coverage End Date GABRIELLA (NEEDS REFERRA L) [address] [place] [phone] [id number] UMESH ALEXANDRE Self - patient is the insured Medical (General) History Medical History History ICD Code asthma psoriasis Surgical History Surgery Date(Month/Year) cholecystectomy tonsillectomy section x2
== END 2025-08-29 14:19 | disposition home or self-care (01) ==
LOC: HO.HOS 13:04
PROVIDERS: PCP Internal Medicine; Visit Provider Physician Assistant
DX: Z98.890 Other specified postprocedural states (principal); Z87.81 Personal history of (healed) traumatic fracture
CPT/HCPCS: 99024

== ENCOUNTER → 2025-08-29 13:05 | Outpatient (BNV) | payer OTHER, SELFPAY | PROVIDERS: Visit Provider Radiology Diagnostic Radiology | DX: M25.571 Pain in right ankle and joints of right foot (principal) | CPT/HCPCS: 73610 ==